=== PATIENT | male | born 1950 | race African-American/Black ===

== ENCOUNTER 2018-03-12 23:31 | Emergency (ER) | payer OTHER ==
--- OUTSIDE RECORDS SUMMARY | 2018-03-12 23:32 | XMS REPORT | Clinical Summary ---
:1950 Author Organization [facility] Address [address] [place] [address] Phone Care Team Providers Name Role Phone Unavailable Primary Care Provider Unavailable Allergies No Known Allergies Current Medications Prescription Sig. Disp. Refills Start Date End Date Status lisinopril (PRINIVIL,ZESTRIL) Take 20 mg by Active 20 MG tablet mouth 2 (two) times daily. hydroCHLOROthiazide Take 25 mg by Active (HYDRODIURIL) 25 MG tablet mouth daily. pravastatin (PRAVACHOL) 20 MG Take 20 mg by Active tablet mouth daily. Active Problems Problem Noted Date Renal mass, left 01/06/2017 Flank pain 01/06/2017 Social History Tobacco Use Types Packs/Day Years Used Date Never Smoker Alcohol Use Drinks/Week oz/Week Comments Yes 1 Cans of beer 0.6 OCCASSIONALLY Sex Assigned at Date Recorded Not on file Last Filed Vital Signs Not on file Plan of Treatment Not on file Results Not on fileafter 03/11/2017
--- OUTSIDE RECORDS SUMMARY | 2018-03-12 23:33 | XMS REPORT ---
:1950 Author Organization [facility] Address [address] [place] [address] Care Team Providers Name Role Phone JEROME DAO Unavailable Unavailable Problems This patient has no known problems. Allergies, Adverse Reactions, Alerts This patient has no known allergies or adverse reactions. Medications This patient has no known medications. Results Test Description Test Time Test Comments Text Results Atomic Results Result Comments TISSUE 2017-01-17 Surgical Pathology Report Case: [id number] EXAM 15:47:00 Irineo rodney Provider: Jerome Dao MD Ordering Provider: Jerome Dao MD Ordering Location: [address] Collected: 01/10/2017 1543 Service Pathologist: Saumya Sexton, Received: 01/10/2017 1616 Specimen: Kidney, Left, LEFT KIDNEY, SPLEEN, TAIL OF PANCREAS EN-BLOC LEFT KIDNEY, SPLEEN AND TAIL OF PANCREAS, LAPAROSCOPIC RADICAL NEPHRECTOMY WITH SPLENECTOMY AND DISTAL PANCREATECTOMY: - WEIGHT:1503 GM - PAPILLARY RENAL CELL CARCINOMA, 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.KIDNEY: Nephrectomy, Partial or RadicalKidney Res Specimen Site: Kidney structureSPECIMEN Procedure: Other (specify): splenectomy, distal pancreatectomy and adrenelectomy Specimen Laterality: Left Tumor Site: Upper pole Tumor Focality: Unifocal Macroscopic Extent of Tumor: Tumor limited to kidneyTUMOR Histologic Type: Papillary renal cell carcinoma Sarcomatoid Features: Not identified Histologic Grade (Sydni Nuclear Grade): G3: Nuclei very irregular, approximately 20 microns; nucleoli large and prominentEXTENT Tumor Size ( largest tumor if multiple): Greatest dimension (cm): 21 Additional Dimension (cm): 19 Additional Dimension (cm): 6 Microscopic Tumor Extension: Tumor limited to kidneyMARGINS Margin Status: Margins uninvolved by invasive carcinomaACCESSORY FINDINGS Tumor Necrosis (any amount): Not identified Lymph-Vascular Invasion: Not identifiedSTAGE (pTNM) Primary Tumor (pT): pT2b: Tumor more than 10 cm, limited to the kidney Regional Lymph Nodes (pN): pN0: No regional lymph node metastasis Number of Lymph Nodes Examined: Specify: 9 Number of Lymph Nodes Involved: Specify: 0 Distant Metastasis (pM): Not [id number]; [id number]; [id number] X 3Left renal massLeft kidney, spleen, tail of pancreasReceived fresh labeled "kidney, left", description "left kidney, spleen, tail of pancreas" is a 1,503 gm left radical nephrectomy specimen measuring 24.0 x 21.0 x 6.0 cm, with attached ureter (10.0 cm in length x 0.3 cm in diameter), attached adrenal gland (7.5 x 2.0 x 0.3 cm), adherent tail of pancreas (7.0 x 5.5 x 1.0 cm), with attached spleen (10.5 x 8.0 x 4.0 cm). Scant adipose tissue is attached to the specimen.The kidney is bivalved to reveal a 21.0 x 19.0 x 6.0 cm, smooth, well-circumscribed , unilocular, cystic mass containing dark-brown fluid. The lining is dark-brown, cobbled and exhibits adherent brown old blood. The mass is located in the upper pole and does not appear to invade into the attached tail of pancreas, spleen or adrenal gland.The mass does not appear to invade into the caliceal system, pelvis or renal sinus.The uninvolved renal parenchyma is dark-brown, homogeneous, dense and unremarkable.Sectioning of the attached pancreas reveals a yellow-choi, lobulated, unremarkable cut surface. Sectioning of the spleen reveals a dark-red, homogeneous, dense, unremarkable cut surface.Sectioning of the adrenal gland reveals a yellow-gold to brown, unremarkable cut surface.Multiple pink-choi peripancreatic lymph nodes are identified ranging in size from 0.3 cm to 1.0 cm in greatest dimension.A 1.5 cm in greatest dimension, dark-red, spherical, accessory spleen is identified.Section code: A1, parallel ureteral and vascular resection margins; A2, parallel pancreatic resection margin; A3-A4, automobile rental representative sections of mass with adherent spleen; A5-A8, automobile rental representative sections of mass with adherent pancreas; A9-A14, automobile rental representative sections of mass with renal parenchyma; A15-A24, additional automobile rental representative sections of mass; A25-A26, automobile rental representative sections of pancreas; A27-A28, automobile rental representative sections of adrenal gland; A29-A30, automobile rental representative sections of spleen; A31, accessory spleen; A32, automobile rental representative section of uninvolved kidney with pelvis and caliceal system; A33, automobile rental representative section of uninvolved kidney; A34, renal sinus; A35-A36, multiple intact peripancreatic lymph nodes. DB/ ewSections show a tumor mass encapsulated by a very thick capsule. The tumor originates in the upper pole of the kidney and its capsule is adherent to spleen and distal pancreas without invading into them. No definite invasion in perirenal fat is seen. Hilar fat and renal sinus are free of tumor.The following special studies were performed on this case and the interpretation is incorporated in the diagnostic report above: The immunohistochemistry test was developed and its performance characteristics determined by [facility], Pathology Laboratory. It has not been cleared or approved by the U.S. Food and Drug Administration. The FDA has determined that such clearance or approval is not necessary. The test is used for clinical purposes. It should not be regarded as investigational or for research. This laboratory is certified under the Clinical Laboratory Improvement Amendments of 1988 (CLIA-88) as qualified to perform high complexity clinical laboratory testing.CK7; PAX-8; CD10 AND AMACR ANAEROBIC CULTURE 2017-01-16 05:28:00 Test Item Value Reference Range Comments CULTURE (BEAKER) (test mqaj=5891) No anaerobes isolated HEMOGLOBIN AND [id number] 14:55:00 Test Item Value Reference Range Comments HEMOGLOBIN (BEAKER) (test cslf=790) 11.9 GM/DL 13.0-16.8 HEMATOCRIT (BEAKER) (test eymo=321) 35.7 % 40.0-50.0 CBC (HEMOGRAM ONLY)2017-01-14 10:41:00 Test Item Value Reference Range Comments WHITE BLOOD CELL COUNT (BEAKER) (test gjqo=333) 6.9 K/ L 4.0-10.0 RED BLOOD CELL COUNT (BEAKER) (test odys=738) 2.66 M/ L 4.20-5.80 HEMOGLOBIN (BEAKER) (test zvri=958) 8.7 GM/DL 13.0-16.8 HEMATOCRIT (BEAKER) (test uaaw=912) 28.4 % 40.0-50.0 MEAN CORPUSCULAR VOLUME (BEAKER) (test nwac=261) 107.0 fL 82.0-98.0 MEAN CORPUSCULAR HEMOGLOBIN (BEAKER) (test 32.6 pg 27.0-33.0 duvm=852) MEAN CORPUSCULAR HEMOGLOBIN CONC (BEAKER) (test 30.5 GM/DL 32.0-36.0 ejer=949) RED CELL DISTRIBUTION WIDTH (BEAKER) (test 13.4 % 10.3-14.2 dbjq=445) PLATELET COUNT (BEAKER) (test qpuk=653) 199 K/CU MM 150-430 MEAN PLATELET VOLUME (BEAKER) (test qmeb=139) 8.6 fL 6.5-10.5 NUCLEATED RED BLOOD CELLS (BEAKER) (test 0 /100 WBC 0-0 pqil=596) 0.00SURGICALLY OBTAINED CULTURE + GRAM [id number] 23:39:00 Test Item Value Reference Range Comments CULTURE (BEAKER) (test hkky=5997) No growth GRAM STAIN RESULT (BEAKER) (test 3+ WBCs vrdk=4774) GRAM STAIN RESULT (BEAKER) (test No organisms seen kauh=97876) AMYLASE, BODY [id number] 04:49:00 Test Item Value Reference Range Comments AMYLASE FLUID (BEAKER) (test vnxs=629) 158 U/L Absence of reference range indicates that normals have not been defined.Assay performance has not been validated for this type of specimen.AMYLASE, BODY [id number] 09:38:00 Test Item Value Reference Range Comments AMYLASE FLUID (BEAKER) (test bdtm=696) 1456 U/L Absence of reference range indicates that normals have not been defined.Assay performance has not been validated for this type of specimen.[id number] 06:54:00 Test Item Value Reference Range Comments POTASSIUM (BEAKER) (test 3.8 meq/L 3.5-5.1 Specimen slightly hemolyzed eqyp=101) BASIC METABOLIC [id number] 06:54:00 Test Item Value Reference Range Comments SODIUM (BEAKER) (test 138 meq/L 136-145 zltp=486) POTASSIUM (BEAKER) (test 3.8 meq/L 3.5-5.1 Specimen slightly bdpv=882) hemolyzed CHLORIDE (BEAKER) (test 104 meq/L 98-107 wxfh=083) CO2 (BEAKER) (test 26 meq/L 22-29 chpf=371) BLOOD UREA NITROGEN 10 mg/dL 7-21 (BEAKER) (test pxua=156) CREATININE (BEAKER) (test 1.28 mg/dL 0.57-1.25 Specimen slightly qzap=030) hemolyzed GLUCOSE RANDOM (BEAKER) 137 mg/dL 70-105 (test zyrw=203) CALCIUM (BEAKER) (test 8.5 mg/dL 8.4-10.2 jhud=814) EGFR (BEAKER) (test 69 mL/min/1.73 sq m ESTIMATED GFR IS NOT zsgb=9944) ACCURATE CREATININE CLEARANCE IN PREDICTING GLOMERULAR FILTRATION RATE. ESTIMATED GFR IS NOT APPLICABLE FOR DIALYSIS PATIENTS. HEMOGLOBIN AND [id number] 06:53:00 Test Item Value Reference Range Comments HEMOGLOBIN (BEAKER) (test uolp=819) 12.1 GM/DL 13.0-16.8 HEMATOCRIT (BEAKER) (test ldtw=662) 37.8 % 40.0-50.0 [id number] 14:34:00Medical Cytology Report Case: [id number] Authorizing Provider: Jerome Dao MD Ordering Provider: Jerome Dao MD OrderingLocation: [address] Collected: 1147 Service Pathologist: Catrachito Hernandez, Received: 01/10/2017 1543 Specimen: Kidney, Left LEFT RENAL MASS ASPIRATE ( CYTOSPINS AND CELL BLOCK): - NEGATIVE FOR MALIGNANT CELLS Signing Pathologist Direct Phone Line: [phone] cytospins and radha block show mostly old blood elements with no viable epithelial cells present.60500, [id number] cm left renal mass, flank painLEFT RENAL MASS ASPIRATE (CYTOSPINS AND CELL BLOCK)22 mls bloody; 4 cytospins, cell blockCollected: [id number]: [id number] [facility], Department of Pathology, [address] [place] [phone], RpuqwmLos [facility], Department of Pathology, [address] [place] [phone] , [id number] [id number] 12:12:00 Test Item Value Reference Range Comments CULTURE (BEAKER) (test 10-19,000 col/mL skin lux uatt=1111) AMYLASE, BODY [id number] 07:22:00 Test Item Value Reference Range Comments AMYLASE FLUID (BEAKER) (test zvic=535) 6125 U/L Absence of reference range indicates that normals have not been defined.Assay performance has not been validated for this type of specimen.CBC W/PLT COUNT & amp; AUTO [id number] 06:40:00 Test Item Value Reference Range Comments WHITE BLOOD CELL COUNT (BEAKER) (test ifjb=597) 11.9 K/ L 4.0-10.0 RED BLOOD CELL COUNT (BEAKER) (test edya=885) 4.15 M/ L 4.20-5.80 HEMOGLOBIN (BEAKER) (test cngf=022) 12.9 GM/DL 13.0-16.8 HEMATOCRIT (BEAKER) (test sqlz=553) 40.0 % 40.0-50.0 MEAN CORPUSCULAR VOLUME (BEAKER) (test gtny=900) 96.4 fL 82.0-98.0 MEAN CORPUSCULAR HEMOGLOBIN (BEAKER) (test 31.2 pg 27.0-33.0 irac=178) MEAN CORPUSCULAR HEMOGLOBIN CONC (BEAKER) (test 32.3 GM/DL 32.0-36.0 pomw=280) RED CELL DISTRIBUTION WIDTH (BEAKER) (test 13.9 % 10.3-14.2 xxlj=074) PLATELET COUNT (BEAKER) (test xsaz=166) 183 K/CU MM 150-430 MEAN PLATELET VOLUME (BEAKER) (test udkh=676) 9.1 fL 6.5-10.5 NUCLEATED RED BLOOD CELLS (BEAKER) (test 0 /100 WBC 0-0 xwvp=832) NEUTROPHILS RELATIVE PERCENT (BEAKER) (test 76 % dryv=015) LYMPHOCYTES RELATIVE PERCENT (BEAKER) (test 11 % wlgk=046) MONOCYTES RELATIVE PERCENT (BEAKER) (test 13 % heln=695) EOSINOPHILS RELATIVE PERCENT (BEAKER) (test 0 % qqqo=176) BASOPHILS RELATIVE PERCENT (BEAKER) (test 0 % ggig=998) NEUTROPHILS ABSOLUTE COUNT (BEAKER) (test 9.04 K/ L 1.80-8.00 cixj=471) LYMPHOCYTES ABSOLUTE COUNT (BEAKER) (test 1.28 K/ L 1.48-4.50 vuun=387) MONOCYTES ABSOLUTE COUNT (BEAKER) (test 1.53 K/ L 0.00-1.30 juea=152) EOSINOPHILS ABSOLUTE COUNT (BEAKER) (test 0.02 K/ L 0.00-0.50 npas=052) BASOPHILS ABSOLUTE COUNT (BEAKER) (test 0.01 K/ L 0.00-0.20 hhcy=435) 0.00BASIC METABOLIC [id number] 05:56:00 Test Item Value Reference Range Comments SODIUM (BEAKER) (test 136 meq/L 136-145 kwgw=124) POTASSIUM (BEAKER) (test 5.2 meq/L 3.5-5.1 Specimen slightly yezq=294) hemolyzed CHLORIDE (BEAKER) (test 105 meq/L 98-107 vrfi=255) CO2 (BEAKER) (test 23 meq/L 22-29 ukkq=135) BLOOD UREA NITROGEN 11 mg/dL 7-21 (BEAKER) (test dqvu=029) CREATININE (BEAKER) (test 1.46 mg/dL 0.57-1.25 Specimen slightly retr=226) hemolyzed GLUCOSE RANDOM (BEAKER) 302 mg/dL 70-105 (test htiw=747) CALCIUM (BEAKER) (test 8.1 mg/dL 8.4-10.2 fhzz=802) EGFR (BEAKER) (test 59 mL/min/1.73 sq m ESTIMATED GFR IS NOT kjun=9740) ACCURATE CREATININE CLEARANCE IN PREDICTING GLOMERULAR FILTRATION RATE. ESTIMATED GFR IS NOT APPLICABLE FOR DIALYSIS PATIENTS. BASIC METABOLIC [id number] 17:46:00 Test Item Value Reference Range Comments SODIUM (BEAKER) (test 139 meq/L 136-145 usga=688) POTASSIUM (BEAKER) (test 4.1 meq/L 3.5-5.1 wdah=949) CHLORIDE (BEAKER) (test 107 meq/L 98-107 rckg=690) CO2 (BEAKER) (test 20 meq/L 22-29 hjef=885) BLOOD UREA NITROGEN 10 mg/dL 7-21 (BEAKER) (test xsni=653) CREATININE (BEAKER) (test 1.44 mg/dL 0.57-1.25 fwoh=788) GLUCOSE RANDOM (BEAKER) 176 mg/dL 70-105 (test juro=661) CALCIUM (BEAKER) (test 8.2 mg/dL 8.4-10.2 tkmv=929) EGFR (BEAKER) (test 60 mL/min/1.73 sq m ESTIMATED GFR IS NOT gnpl=4651) ACCURATE CREATININE CLEARANCE IN PREDICTING GLOMERULAR FILTRATION RATE. ESTIMATED GFR IS NOT APPLICABLE FOR DIALYSIS PATIENTS. CBC W/PLT COUNT & AUTO [id number] 17:28:00 Test Item Value Reference Range Comments WHITE BLOOD CELL COUNT (BEAKER) (test zqyu=615) 13.5 K/ L 4.0-10.0 RED BLOOD CELL COUNT (BEAKER) (test vnpo=842) 4.20 M/ L 4.20-5.80 HEMOGLOBIN (BEAKER) (test gedt=082) 13.1 GM/DL 13.0-16.8 HEMATOCRIT (BEAKER) (test fzjm=723) 39.9 % 40.0-50.0 MEAN CORPUSCULAR VOLUME (BEAKER) (test kmmx=660) 94.9 fL 82.0-98.0 MEAN CORPUSCULAR HEMOGLOBIN (BEAKER) (test 31.1 pg 27.0-33.0 xzyb=810) MEAN CORPUSCULAR HEMOGLOBIN CONC (BEAKER) (test 32.8 GM/DL 32.0-36.0 wiro=303) RED CELL DISTRIBUTION WIDTH (BEAKER) (test 12.6 % 10.3-14.2 bokw=076) PLATELET COUNT (BEAKER) (test kgoc=121) 180 K/CU MM 150-430 MEAN PLATELET VOLUME (BEAKER) (test cqmr=088) 9.1 fL 6.5-10.5 NUCLEATED RED BLOOD CELLS (BEAKER) (test 0 /100 WBC 0-0 jpgv=937) NEUTROPHILS RELATIVE PERCENT (BEAKER) (test 89 % utow=686) LYMPHOCYTES RELATIVE PERCENT (BEAKER) (test 6 % ekrf=437) MONOCYTES RELATIVE PERCENT (BEAKER) (test 5 % tojq=570) EOSINOPHILS RELATIVE PERCENT (BEAKER) (test 0 % hdgo=319) BASOPHILS RELATIVE PERCENT (BEAKER) (test 0 % chnt=053) NEUTROPHILS ABSOLUTE COUNT (BEAKER) (test 12.00 K/ L 1.80-8.00 khho=489) LYMPHOCYTES ABSOLUTE COUNT (BEAKER) (test 0.80 K/ L 1.48-4.50 tjqr=929) MONOCYTES ABSOLUTE COUNT (BEAKER) (test 0.68 K/ L 0.00-1.30 ycbt=225) EOSINOPHILS ABSOLUTE COUNT (BEAKER) (test 0.01 K/ L 0.00-0.50 ypcr=303) BASOPHILS ABSOLUTE COUNT (BEAKER) (test 0.04 K/ L 0.00-0.20 hkxj=526) 0.00POCT-GLUCOSE [id number] 08:00:00 Test Item Value Reference Range Comments POC-GLUCOSE METER (BEAKER) 109 mg/dL 70-110 TESTED AT [address] (test ewtv=3722) [facility] [address] HEPATIC FUNCTION [id number] 04:56:00 Test Item Value Reference Range Comments TOTAL PROTEIN (BEAKER) (test cuhj=212) 7.3 gm/dL 6.0-8.3 ALBUMIN (BEAKER) (test quxf=2159) 4.0 g/dL 3.5-5.0 BILIRUBIN TOTAL (BEAKER) (test dnbx=903) 0.7 mg/dL 0.2-1.2 BILIRUBIN DIRECT (BEAKER) (test dhdp=680) 0.3 mg/dL 0.1-0.5 ALKALINE PHOSPHATASE (BEAKER) (test dceg=508) 46 U/L 40-150 AST (SGOT) (BEAKER) (test xmxk=282) 26 U/L 5-34 ALT (SGPT) (BEAKER) (test lboi=139) 16 U/L 6-55 BASIC METABOLIC [id number] 04:56:00 Test Item Value Reference Range Comments SODIUM (BEAKER) (test 141 meq/L 136-145 jswe=883) POTASSIUM (BEAKER) (test 4.5 meq/L 3.5-5.1 tsyw=710) CHLORIDE (BEAKER) (test 106 meq/L 98-107 lrzx=925) CO2 (BEAKER) (test 26 meq/L 22-29 qzcx=338) BLOOD UREA NITROGEN 14 mg/dL 7-21 (BEAKER) (test kzjl=440) CREATININE (BEAKER) (test 1.23 mg/dL 0.57-1.25 glfz=504) GLUCOSE RANDOM (BEAKER) 92 mg/dL 70-105 (test kces=619) CALCIUM (BEAKER) (test 9.3 mg/dL 8.4-10.2 vjce=355) EGFR (BEAKER) (test 72 mL/min/1.73 sq m ESTIMATED GFR IS NOT nign=0388) ACCURATE CREATININE CLEARANCE IN PREDICTING GLOMERULAR FILTRATION RATE. ESTIMATED GFR IS NOT APPLICABLE FOR DIALYSIS PATIENTS. CBC W/PLT COUNT & AUTO [id number] 04:46:00 Test Item Value Reference Range Comments WHITE BLOOD CELL COUNT (BEAKER) (test rebc=429) 6.5 K/ L 4.0-10.0 RED BLOOD CELL COUNT (BEAKER) (test zayr=633) 4.45 M/ L 4.20-5.80 HEMOGLOBIN (BEAKER) (test nibg=043) 14.0 GM/DL 13.0-16.8 HEMATOCRIT (BEAKER) (test usxo=805) 42.8 % 40.0-50.0 MEAN CORPUSCULAR VOLUME (BEAKER) (test vxwn=110) 96.2 fL 82.0-98.0 MEAN CORPUSCULAR HEMOGLOBIN (BEAKER) (test 31.6 pg 27.0-33.0 cqbt=684) MEAN CORPUSCULAR HEMOGLOBIN CONC (BEAKER) (test 32.8 GM/DL 32.0-36.0 gejy=163) RED CELL DISTRIBUTION WIDTH (BEAKER) (test 13.8 % 10.3-14.2 flvc=940) PLATELET COUNT (BEAKER) (test dmmq=161) 160 K/CU MM 150-430 MEAN PLATELET VOLUME (BEAKER) (test uwmp=702) 9.3 fL 6.5-10.5 NUCLEATED RED BLOOD CELLS (BEAKER) (test 0 /100 WBC 0-0 jggc=546) NEUTROPHILS RELATIVE PERCENT (BEAKER) (test 54 % qizd=949) LYMPHOCYTES RELATIVE PERCENT (BEAKER) (test 32 % mwon=215) MONOCYTES RELATIVE PERCENT (BEAKER) (test 12 % bzry=302) EOSINOPHILS RELATIVE PERCENT (BEAKER) (test 2 % rxsp=473) BASOPHILS RELATIVE PERCENT (BEAKER) (test 1 % dgfa=538) NEUTROPHILS ABSOLUTE COUNT (BEAKER) (test 3.51 K/ L 1.80-8.00 fscm=765) LYMPHOCYTES ABSOLUTE COUNT (BEAKER) (test 2.05 K/ L 1.48-4.50 mwto=676) MONOCYTES ABSOLUTE COUNT (BEAKER) (test 0.78 K/ L 0.00-1.30 ztus=067) EOSINOPHILS ABSOLUTE COUNT (BEAKER) (test 0.10 K/ L 0.00-0.50 ksfx=605) BASOPHILS ABSOLUTE COUNT (BEAKER) (test 0.06 K/ L 0.00-0.20 bsut=332) 0.00PT/[id number] 04:45:00 Test Item Value Reference Range Comments PROTIME (BEAKER) (test zsdd=188) 14.5 seconds 11.7-14.7 INR (BEAKER) (test aisx=353) 1.1 <=5.9 PARTIAL THROMBOPLASTIN TIME (BEAKER) (test 27.7 seconds 22.5-36.0 avee=537) RECOMMENDED COUMADIN/WARFARIN INR THERAPY RANGESSTANDARD DOSE: 2.0 - 3.0 Includes: PROPHYLAXIS forvenous thrombosis, systemic embolization; TREATMENT for venous thrombosis and/or pulmonary embolus.HIGH RISK: Target INR is 2.5-3.5 for patients with mechanical heart valves.URINALYSIS W/ [id number] 04 :29:00 Test Item Value Reference Range Comments COLOR (BEAKER) (test wsru=772) Light Yellow CLARITY (BEAKER) (test jtif=293) Clear SPECIFIC GRAVITY UA (BEAKER) (test xivx=181) 1.007 1.001-1.035 PH UA (BEAKER) (test gsus=945) 6.0 5.0-8.0 PROTEIN UA (BEAKER) (test olsy=463) Negative Negative GLUCOSE UA (BEAKER) (test bwok=878) Negative Negative KETONES UA (BEAKER) (test wkit=655) Negative Negative BILIRUBIN UA (BEAKER) (test cyuu=840) Negative Negative BLOOD UA (BEAKER) (test aclm=696) Negative Negative NITRITE UA (BEAKER) (test drkl=367) Negative Negative LEUKOCYTE ESTERASE UA (BEAKER) (test ikot=280) Negative Negative UROBILINOGEN UA (BEAKER) (test lfed=659) 0.2 mg/dL 0.2-1.0 RBC UA (BEAKER) (test moui=454) < /HPF WBC UA (BEAKER) (test jdep=639) 1 /HPF SOURCE(BEAKER) (test qcrt=3732) Urine, Voided
[2018-03-13] MEDS ORDERED: DIPHENHYDRAMINE 25 MG TAB/CAP ONE ×2 (00:52→00:54)
[2018-03-13] MEDS ORDERED: IBUPROFEN 400 MG TAB ONE (00:52)
[2018-03-13] MEDS ORDERED: IBUPROFEN 200 MG TAB PO ONE (00:53)
--- NOTE | 2018-03-13 00:58 | ER ---
Nurse's Notes [facility] Name: Blair Baca Age: 67 yrs Sex: Male : 1950 Arrival Date: 03/12/2018 Time: 23:32 Bed 7 Private MD: Bernard Chaney E Diagnosis: Headache;Hypertension Presentation: 03/12 23:42 Presenting complaint: Patient states: headache with elevated blood pressure since noon. ak1 at 1900 home BP 165/105. pt uses the clinic in [place] for medications. Transition of care: patient was not received from another setting of care. Onset of symptoms was March 12, 2018. Risk Assessment: Do you want to hurt yourself or someone else? Patient reports no desire to harm self or others. Initial Sepsis Screen: Does the patient meet any 2 criteria? No. Patient's initial sepsis screen is negative. Does the patient have a suspected source of infection? No. Patient's initial sepsis screen is negative. Care prior to arrival: None. 23:42 Method Of Arrival: Ambulatory ak1 23:42 Acuity: AMILCAR 3 ak1 Triage Assessment: 23:44 General: Appears in no apparent distress. Behavior is calm, cooperative. Pain: ak1 Complains of pain in headache. Historical: - Allergies: 23:44 No Known Allergies; ak1 - Home Meds: 23:44 lisinopril 20 mg Oral tab 1 tab twice daily [Active]; hydrochlorothiazide 25 mg Oral ak1 tab 1 tab once daily [Active]; - PMHx: 23:44 Hypertension; Hyperlipidemia; ak1 - PSHx: 23:44 kidney surgery - left kidney removed; ak1 - Immunization history:: Adult Immunizations unknown. - Social history:: Smoking status: Patient/guardian denies using tobacco. - Ebola Screening: : No symptoms or risks identified at this time. Screenin:44 Abuse screen: Denies threats or abuse. Denies injuries from another. Nutritional ak1 screening: No deficits noted. Tuberculosis screening: No symptoms or risk factors identified. Fall Risk None identified. Assessment: 03/13 00:33 General: Appears in no apparent distress. comfortable, Behavior is calm, cooperative. mg2 Pain: Complains of pain in head Pain does not radiate. Pain currently is 6 out of 10 on a pain scale. Quality of pain is described as aching, Pain began \T\ 1800 Is intermittent. Neuro: Level of Consciousness is awake, alert, obeys commands, Oriented to person, place, time, situation. Cardiovascular: Capillary refill < 3 seconds Patient's skin is warm and dry. Respiratory: Airway is patent Respiratory effort is even, unlabored, Respiratory pattern is regular, symmetrical. GI: No signs and/or symptoms were reported involving the gastrointestinal system. : No signs and/or symptoms were reported regarding the genitourinary system. EENT: No signs and/or symptoms were reported regarding the EENT system. Derm: Skin is intact, Skin is pink, warm \T\ dry. normal. Musculoskeletal: Circulation, motion, and sensation intact. 01:00 Reassessment: Patient and/or family updated on plan of care and expected duration. Pain lp1 level reassessed. Patient is alert, oriented x 3, equal unlabored respirations, skin warm/dry/pink. Vital Signs: 03/12 23:41 BP 164 / 104; Pulse 63; Resp 18; Temp 98.1(TE); Pulse Ox 100% on R/A; Weight 108.86 kg ak1 (R); Height 6 ft. 5 in. (195.58 cm) (R); Pain 8/10; 03/13 00:34 BP 152 / 98; Pulse 65; Resp 18; Pulse Ox 100% on R/A; Pain 6/10; mg2 01:15 BP 145 / 90; Pulse 80; Resp 18; Pulse Ox 100% on R/A; Pain 0/10; mg2 03/12 23:41 Body Mass Index 28.46 (108.86 kg, 195.58 cm) ak1 ED Course: 03/12 23:32 Patient arrived in ED. am2 23:32 Bernard Chaney MD is Private Physician. am2 23:41 Arm band placed on Patient placed in an exam room, on a stretcher, on pulse oximetry, ak1 Patient notified of wait time. 23:42 Triage completed. ak1 23:44 Patient has correct armband on for positive identification. Bed in low position. Call ak1 light in reach. Side rails up X 1. Pulse ox on. NIBP on. 03/13 00:01 Xavier Cruz MD is Attending Physician. ps1 00:32 Cb Quiroga RN is Primary Nurse. mg2 00:56 Bernard Chaney MD is Referral Physician. ps1 01:27 No provider procedures requiring assistance completed. Patient did not have IV access mg2 during this emergency room visit. Administered Medications: 00:59 Drug: Reglan 10 mg Route: PO; lp1 00:59 Drug: Motrin 600 mg Route: PO; lp1 Outcome: 00:58 Discharge ordered by MD. ps1 01:27 Discharged to home ambulatory. mg2 01:27 Condition: stable 01:27 Discharge instructions given to patient, Instructed on discharge instructions, follow up and referral plans. Demonstrated understanding of instructions, follow-up care. 01:28 Patient left the ED. mg2 Signatures: Carine Davila RN RN lp1 Philly Zepeda RN RN ak1 Carol Escalante am2 Xavier Cruz MD MD ps1 Cb Quiroga RN RN mg2 Corrections: (The following items were deleted from the chart) 01:01 01:00 BP 152 / 98; Pulse 86bpm; Resp 18bpm; lp1 lp1
--- NOTE | 2018-03-13 00:58 | EDPHYS ---
Physician Documentation [facility] Name: Blair Baca Age: 67 yrs Sex: Male : 1950 Arrival Date: 03/12/2018 Time: 23:32 Bed 7 Private MD: Bernard Chaney E ED Physician Xavier Cruz HPI: 03/13 00:50 This 67 yrs old Black Male presents to ER via Ambulatory with complaints of High Blood ps1 Pressure. 00:50 patient has long standing htn takes hctz and lisinopril. States that he takes his ps1 medication ad jimena and depending on the BP at home. He states that he gets headaches associated with high blood pressure and he states that he had a headache today and his blood pressure was 160's systolic. He took his lisinopril and his BP during evaluation was 150's systolic and still has a frontal headache. His headache is c/w his previous episodes and was not abrupt but gradual and described as throbbing. No ataxia, FND, or vomting. . Historical: - Allergies: 03/12 23:44 No Known Allergies; ak1 - Home Meds: 23:44 lisinopril 20 mg Oral tab 1 tab twice daily [Active]; hydrochlorothiazide 25 mg Oral ak1 tab 1 tab once daily [Active]; - PMHx: 23:44 Hypertension; Hyperlipidemia; ak1 - PSHx: 23:44 kidney surgery - left kidney removed; ak1 - Immunization history:: Adult Immunizations unknown. - Social history:: Smoking status: Patient/guardian denies using tobacco. - Ebola Screening: : No symptoms or risks identified at this time. ROS: 03/13 00:50 Constitutional: Negative for fever, chills, and weight loss, Eyes: Negative for injury, ps1 pain, redness, and discharge, Cardiovascular: Negative for chest pain, palpitations, and edema, Respiratory: Negative for shortness of breath, cough, wheezing, and pleuritic chest pain, Abdomen/GI: Negative for abdominal pain, nausea, vomiting, diarrhea, and constipation, Back: Negative for injury and pain, MS/Extremity: Negative for injury and deformity, Skin: Negative for injury, rash, and discoloration. Neuro: Positive for headache. Exam: 00:50 Constitutional: This is a well developed, well nourished patient who is awake, alert, ps1 and in no acute distress. Head/Face: Normocephalic, atraumatic. Eyes: Pupils equal round and reactive to light, extra-ocular motions intact. Lids and lashes normal. Conjunctiva and sclera are non-icteric and not injected. Chest/axilla: Normal chest wall appearance and motion. Nontender with no deformity. No lesions are appreciated. Cardiovascular: Regular rate and rhythm. No gallops, murmurs, or rubs. Normal PMI, no JVD. No pulse deficits. Respiratory: Lungs have equal breath sounds bilaterally, clear to auscultation and percussion. No rales, rhonchi or wheezes noted. No increased work of breathing, no retractions or nasal flaring. Abdomen/GI: Soft, non-tender, with normal bowel sounds. No distension or tympany. No guarding or rebound. No evidence of tenderness throughout. Skin: Warm, dry with normal turgor. Normal color with no rashes, no lesions, and no evidence of cellulitis. MS/ Extremity: Pulses equal, no cyanosis. Neurovascular intact. Full, normal range of motion. Neuro: Awake and alert, GCS 15, oriented to person, place, time, and situation. Cranial nerves II-XII grossly intact. Sensory grossly intact. Psych: Awake, alert, with orientation to person, place and time. Behavior, mood, and affect are within normal limits. Vital Signs: 03/12 23:41 BP 164 / 104; Pulse 63; Resp 18; Temp 98.1(TE); Pulse Ox 100% on R/A; Weight 108.86 kg ak1 (R); Height 6 ft. 5 in. (195.58 cm) (R); Pain 8/10; 03/13 00:34 BP 152 / 98; Pulse 65; Resp 18; Pulse Ox 100% on R/A; Pain 6/10; mg2 01:15 BP 145 / 90; Pulse 80; Resp 18; Pulse Ox 100% on R/A; Pain 0/10; mg2 03/12 23:41 Body Mass Index 28.46 (108.86 kg, 195.58 cm) ak1 MDM: 00:50 Data reviewed: vital signs, nurses notes. ED course: headache not c/w typical signs of ps1 SAH. Will give Reglan and Benadryl. Encouraged patient to take HTN meds as prescribed. Follow up with PCP for medication modification as necessary. . 00:58 Patient medically screened. ps1 Administered Medications: 00:59 Drug: Reglan 10 mg Route: PO; lp1 00:59 Drug: Motrin 600 mg Route: PO; lp1 Disposition: 03/13/18 00:58 Discharged to Home. Impression: Headache, Hypertension. - Condition is Stable. - Discharge Instructions: Migraine Headache, Hypertension. - Medication Reconciliation Form, Thank You Letter, Antibiotic Education, Prescription Opioid Use form. - Follow up: Bernard Chaney MD; When: As needed; Reason: Recheck today's complaints, Continuance of care, Re-evaluation by your physician. Follow up: Emergency Department; When: As needed; Reason: Worsening of condition. - Problem is an acute exacerbation. - Symptoms have improved. Signatures: Carine Davila RN RN lp1 Philly Zepeda RN RN ak1 Xavier Cruz MD MD ps1 Cb Quiroga RN RN mg2 Corrections: (The following items were deleted from the chart) 01:28 00:58 03/13/2018 00:58 Discharged to Home. Impression: Headache; Hypertension. mg2 Condition is Stable. Forms are Medication Reconciliation Form, Thank You Letter, Antibiotic Education, Prescription Opioid Use. Follow up: Bernard Chaney; When: As needed; Reason: Recheck today's complaints, Continuance of care, Re-evaluation by your physician. Follow up: Emergency Department; When: As needed; Reason: Worsening of condition. Problem is an acute exacerbation. Symptoms have improved. ps1
[2018-03-13] MEDS ORDERED: METOCLOPRAMIDE 5 MG TAB ONE (01:00)
== END 2018-03-13 01:28 | disposition home or self-care (01) ==
LOC: ER 23:31
DX: R51 Headache (principal); I10 Essential (primary) hypertension; E78.5 Hyperlipidemia, unspecified
CPT/HCPCS: 99283

== ENCOUNTER 2018-06-12 23:08 | Emergency (ER) | payer OTHER ==
--- OUTSIDE RECORDS SUMMARY | 2018-06-12 23:10 | XMS REPORT | Clinical Summary ---
:1950 Author Organization [facility] Address [address] [place] [address] Phone Care Team Providers Name Role Phone [...] Not on file Results Not on fileafter 06/11/2017
--- OUTSIDE RECORDS SUMMARY | 2018-06-12 23:11 | XMS REPORT ---
:1950 Author Organization [facility] Address [address] [place] [address] Care Team Providers Name Role Phone JEROME DAO Unavailable Unavailable Problems This patient has no known problems. Allergies, Adverse Reactions, Alerts This patient has no known allergies or adverse reactions. Medications This patient has no known medications. Results Test Description Test Time Test Comments Text Results Atomic Results Result Comments TISSUE 2017-01-17 Surgical Pathology Report Case: [id number] EXAM 15:47:00 Irineo rodney Provider: Jerome Dao MD Ordering Provider: Jerome Dao MD Ordering Location: [address] Collected: 01/10/2017 1543 Service Pathologist: Saumya [...] SYNOPTIC REPORT Signing Pathologist Direct Phone Line: [phone] tumor cells stain positive for PAX-8, AMACR, [...] Involved: Specify: 0 Distant Metastasis (pM): Not [id number]; [id number]; 32949 X 3Left renal massLeft kidney, spleen, tail [...] margins; A2, parallel pancreatic resection margin; A3-A4, order entry representative sections of mass with adherent spleen; A5-A8, order entry representative sections of mass with adherent pancreas; A9-A14, order entry representative sections of mass with renal parenchyma; A15-A24, additional order entry representative sections of mass; A25-A26, order entry representative sections of pancreas; A27-A28, order entry representative sections of adrenal gland; A29-A30, order entry representative sections of spleen; A31, accessory spleen; A32, order entry representative section of uninvolved kidney with pelvis and caliceal system; A33, order entry representative section of uninvolved kidney; A34, renal [...] developed and its performance characteristics determined by [facility], Pathology Laboratory. It has not been cleared [...] Value Reference Range Comments CULTURE (BEAKER) (test hxmr=7331) No anaerobes isolated HEMOGLOBIN AND [id number] 14:55:00 Test Item Value Reference Range Comments HEMOGLOBIN (BEAKER) (test ngtq=905) 11.9 GM/DL 13.0-16.8 HEMATOCRIT (BEAKER) (test pryf=961) 35.7 % 40.0-50.0 CBC (HEMOGRAM ONLY)2017-01-14 10:41:00 Test Item Value Reference Range Comments WHITE BLOOD CELL COUNT (BEAKER) (test vdoo=857) 6.9 K/ L 4.0-10.0 RED BLOOD CELL COUNT (BEAKER) (test krgb=179) 2.66 M/ L 4.20-5.80 HEMOGLOBIN (BEAKER) (test gdom=898) 8.7 GM/DL 13.0-16.8 HEMATOCRIT (BEAKER) (test ffzd=905) 28.4 % 40.0-50.0 MEAN CORPUSCULAR VOLUME (BEAKER) (test mstz=444) 107.0 fL 82.0-98.0 MEAN CORPUSCULAR HEMOGLOBIN (BEAKER) (test 32.6 pg 27.0-33.0 kvlt=680) MEAN CORPUSCULAR HEMOGLOBIN CONC (BEAKER) (test 30.5 GM/DL 32.0-36.0 pyrt=138) RED CELL DISTRIBUTION WIDTH (BEAKER) (test 13.4 % 10.3-14.2 atbt=689) PLATELET COUNT (BEAKER) (test lphi=429) 199 K/CU MM 150-430 MEAN PLATELET VOLUME (BEAKER) (test dejd=845) 8.6 fL 6.5-10.5 NUCLEATED RED BLOOD CELLS (BEAKER) (test 0 /100 WBC 0-0 dmqb=572) 0.00SURGICALLY OBTAINED CULTURE + GRAM [id number] 23:39:00 Test Item Value Reference Range Comments CULTURE (BEAKER) (test tjzc=1014) No growth GRAM STAIN RESULT (BEAKER) (test 3+ WBCs zbjd=2501) GRAM STAIN RESULT (BEAKER) (test No organisms seen ordn=04819) AMYLASE, BODY [id number] 04:49:00 Test Item Value Reference Range Comments AMYLASE FLUID (BEAKER) (test hvkd=619) 158 U/L Absence of reference range indicates that normals have not been defined.Assay performance has not been validated for this type of specimen.AMYLASE, BODY [id number] 09:38:00 Test Item Value Reference Range Comments AMYLASE FLUID (BEAKER) (test ybvw=709) 1456 U/L Absence of reference range indicates that normals have not been defined.Assay performance has not been validated for this type of specimen.[id number] 06:54:00 Test Item Value Reference Range Comments POTASSIUM (BEAKER) (test 3.8 meq/L 3.5-5.1 Specimen slightly hemolyzed cmxw=905) BASIC METABOLIC [id number] 06:54:00 Test Item Value Reference Range Comments SODIUM (BEAKER) (test 138 meq/L 136-145 uqaj=161) POTASSIUM (BEAKER) (test 3.8 meq/L 3.5-5.1 Specimen slightly edco=042) hemolyzed CHLORIDE (BEAKER) (test 104 meq/L 98-107 xxmc=055) CO2 (BEAKER) (test 26 meq/L 22-29 lzqt=947) BLOOD UREA NITROGEN 10 mg/dL 7-21 (BEAKER) (test qxuo=226) CREATININE (BEAKER) (test 1.28 mg/dL 0.57-1.25 Specimen slightly zmrx=575) hemolyzed GLUCOSE RANDOM (BEAKER) 137 mg/dL 70-105 (test bnpv=850) CALCIUM (BEAKER) (test 8.5 mg/dL 8.4-10.2 kwru=506) EGFR (BEAKER) (test 69 mL/min/1.73 sq m ESTIMATED GFR IS NOT izvw=4289) ACCURATE CREATININE CLEARANCE IN PREDICTING GLOMERULAR FILTRATION RATE. ESTIMATED GFR IS NOT APPLICABLE FOR DIALYSIS PATIENTS. HEMOGLOBIN AND [id number] 06:53:00 Test Item Value Reference Range Comments HEMOGLOBIN (BEAKER) (test fdgq=468) 12.1 GM/DL 13.0-16.8 HEMATOCRIT (BEAKER) (test dcdy=322) 37.8 % 40.0-50.0 [id number] 14:34:00Medical Cytology Report Case: [id number] Authorizing Provider: Jerome Dao MD Ordering Provider: Jerome Dao MD OrderingLocation: [address] Collected: 1147 Service Pathologist: Catrachito Hernandez, Received: 01/10/2017 1543 Specimen: Kidney, Left LEFT RENAL MASS ASPIRATE ( CYTOSPINS AND CELL BLOCK): - NEGATIVE FOR MALIGNANT CELLS Signing Pathologist Direct Phone Line: [phone] cytospins and radha block show mostly old blood elements with no viable epithelial cells present.08720, [id number] cm left renal mass, flank painLEFT RENAL MASS ASPIRATE (CYTOSPINS AND CELL BLOCK)22 mls bloody; 4 cytospins, cell blockCollected: [id number]: [id number] [facility], [facility] of [facility]ology, [address] [place] [address], [facility], [facility] of [facility]ology, [address] [place] [address] , [id number] [id number] 12:12:00 Test Item Value Reference Range Comments CULTURE (BEAKER) (test 10-19,000 col/mL skin lux yzae=5193) AMYLASE, BODY [id number] 07:22:00 Test Item Value Reference Range Comments AMYLASE FLUID (BEAKER) (test umlc=469) 6125 U/L Absence of reference range indicates that normals have not been defined.Assay performance has not been validated for this type of specimen.CBC W/PLT COUNT & amp; AUTO [id number] 06:40:00 Test Item Value Reference Range Comments WHITE BLOOD CELL COUNT (BEAKER) (test obzr=980) 11.9 K/ L 4.0-10.0 RED BLOOD CELL COUNT (BEAKER) (test ggtu=732) 4.15 M/ L 4.20-5.80 HEMOGLOBIN (BEAKER) (test wwwu=972) 12.9 GM/DL 13.0-16.8 HEMATOCRIT (BEAKER) (test nwml=604) 40.0 % 40.0-50.0 MEAN CORPUSCULAR VOLUME (BEAKER) (test ezzm=670) 96.4 fL 82.0-98.0 MEAN CORPUSCULAR HEMOGLOBIN (BEAKER) (test 31.2 pg 27.0-33.0 wxdh=670) MEAN CORPUSCULAR HEMOGLOBIN CONC (BEAKER) (test 32.3 GM/DL 32.0-36.0 qgjo=372) RED CELL DISTRIBUTION WIDTH (BEAKER) (test 13.9 % 10.3-14.2 ofqv=328) PLATELET COUNT (BEAKER) (test csqu=874) 183 K/CU MM 150-430 MEAN PLATELET VOLUME (BEAKER) (test gsqe=918) 9.1 fL 6.5-10.5 NUCLEATED RED BLOOD CELLS (BEAKER) (test 0 /100 WBC 0-0 wfwl=650) NEUTROPHILS RELATIVE PERCENT (BEAKER) (test 76 % yyuq=939) LYMPHOCYTES RELATIVE PERCENT (BEAKER) (test 11 % qnqy=659) MONOCYTES RELATIVE PERCENT (BEAKER) (test 13 % ihcl=447) EOSINOPHILS RELATIVE PERCENT (BEAKER) (test 0 % kmvq=185) BASOPHILS RELATIVE PERCENT (BEAKER) (test 0 % wcce=836) NEUTROPHILS ABSOLUTE COUNT (BEAKER) (test 9.04 K/ L 1.80-8.00 rwmp=120) LYMPHOCYTES ABSOLUTE COUNT (BEAKER) (test 1.28 K/ L 1.48-4.50 fzaa=441) MONOCYTES ABSOLUTE COUNT (BEAKER) (test 1.53 K/ L 0.00-1.30 ycyq=380) EOSINOPHILS ABSOLUTE COUNT (BEAKER) (test 0.02 K/ L 0.00-0.50 qncm=071) BASOPHILS ABSOLUTE COUNT (BEAKER) (test 0.01 K/ L 0.00-0.20 ppyv=809) 0.00BASIC METABOLIC [id number] 05:56:00 Test Item Value Reference Range Comments SODIUM (BEAKER) (test 136 meq/L 136-145 dibp=027) POTASSIUM (BEAKER) (test 5.2 meq/L 3.5-5.1 Specimen slightly zjzr=163) hemolyzed CHLORIDE (BEAKER) (test 105 meq/L 98-107 axxc=052) CO2 (BEAKER) (test 23 meq/L 22-29 qbag=901) BLOOD UREA NITROGEN 11 mg/dL 7-21 (BEAKER) (test ilhj=758) CREATININE (BEAKER) (test 1.46 mg/dL 0.57-1.25 Specimen slightly pcnr=881) hemolyzed GLUCOSE RANDOM (BEAKER) 302 mg/dL 70-105 (test vxky=676) CALCIUM (BEAKER) (test 8.1 mg/dL 8.4-10.2 gapf=463) EGFR (BEAKER) (test 59 mL/min/1.73 sq m ESTIMATED GFR IS NOT fdiy=3277) ACCURATE CREATININE CLEARANCE IN PREDICTING GLOMERULAR FILTRATION RATE. ESTIMATED GFR IS NOT APPLICABLE FOR DIALYSIS PATIENTS. BASIC METABOLIC [id number] 17:46:00 Test Item Value Reference Range Comments SODIUM (BEAKER) (test 139 meq/L 136-145 nikt=826) POTASSIUM (BEAKER) (test 4.1 meq/L 3.5-5.1 wfas=918) CHLORIDE (BEAKER) (test 107 meq/L 98-107 tnuz=799) CO2 (BEAKER) (test 20 meq/L 22-29 hcir=829) BLOOD UREA NITROGEN 10 mg/dL 7-21 (BEAKER) (test jrsj=037) CREATININE (BEAKER) (test 1.44 mg/dL 0.57-1.25 itdx=233) GLUCOSE RANDOM (BEAKER) 176 mg/dL 70-105 (test hxgc=866) CALCIUM (BEAKER) (test 8.2 mg/dL 8.4-10.2 jcco=836) EGFR (BEAKER) (test 60 mL/min/1.73 sq m ESTIMATED GFR IS NOT uzdc=6312) ACCURATE CREATININE CLEARANCE IN PREDICTING GLOMERULAR FILTRATION RATE. ESTIMATED GFR IS NOT APPLICABLE FOR DIALYSIS PATIENTS. CBC W/PLT COUNT & AUTO [id number] 17:28:00 Test Item Value Reference Range Comments WHITE BLOOD CELL COUNT (BEAKER) (test kmjh=960) 13.5 K/ L 4.0-10.0 RED BLOOD CELL COUNT (BEAKER) (test syab=835) 4.20 M/ L 4.20-5.80 HEMOGLOBIN (BEAKER) (test pxjk=290) 13.1 GM/DL 13.0-16.8 HEMATOCRIT (BEAKER) (test nzcv=260) 39.9 % 40.0-50.0 MEAN CORPUSCULAR VOLUME (BEAKER) (test lzoc=638) 94.9 fL 82.0-98.0 MEAN CORPUSCULAR HEMOGLOBIN (BEAKER) (test 31.1 pg 27.0-33.0 lrju=650) MEAN CORPUSCULAR HEMOGLOBIN CONC (BEAKER) (test 32.8 GM/DL 32.0-36.0 avtd=946) RED CELL DISTRIBUTION WIDTH (BEAKER) (test 12.6 % 10.3-14.2 qtvb=473) PLATELET COUNT (BEAKER) (test ivsw=478) 180 K/CU MM 150-430 MEAN PLATELET VOLUME (BEAKER) (test nkgq=552) 9.1 fL 6.5-10.5 NUCLEATED RED BLOOD CELLS (BEAKER) (test 0 /100 WBC 0-0 qaxm=277) NEUTROPHILS RELATIVE PERCENT (BEAKER) (test 89 % iyjs=418) LYMPHOCYTES RELATIVE PERCENT (BEAKER) (test 6 % otfn=919) MONOCYTES RELATIVE PERCENT (BEAKER) (test 5 % fqrd=123) EOSINOPHILS RELATIVE PERCENT (BEAKER) (test 0 % egsj=263) BASOPHILS RELATIVE PERCENT (BEAKER) (test 0 % imip=066) NEUTROPHILS ABSOLUTE COUNT (BEAKER) (test 12.00 K/ L 1.80-8.00 qiao=269) LYMPHOCYTES ABSOLUTE COUNT (BEAKER) (test 0.80 K/ L 1.48-4.50 jwrh=622) MONOCYTES ABSOLUTE COUNT (BEAKER) (test 0.68 K/ L 0.00-1.30 ikkd=640) EOSINOPHILS ABSOLUTE COUNT (BEAKER) (test 0.01 K/ L 0.00-0.50 zxnn=018) BASOPHILS ABSOLUTE COUNT (BEAKER) (test 0.04 K/ L 0.00-0.20 lnts=223) 0.00POCT-GLUCOSE [id number] 08:00:00 Test Item Value Reference Range Comments POC-GLUCOSE METER (BEAKER) 109 mg/dL 70-110 TESTED AT [address] (test rgbd=2703) [facility] [address] HEPATIC FUNCTION [id number] 04:56:00 Test Item Value Reference Range Comments TOTAL PROTEIN (BEAKER) (test hvem=187) 7.3 gm/dL 6.0-8.3 ALBUMIN (BEAKER) (test mjhh=9208) 4.0 g/dL 3.5-5.0 BILIRUBIN TOTAL (BEAKER) (test twhw=535) 0.7 mg/dL 0.2-1.2 BILIRUBIN DIRECT (BEAKER) (test mocg=041) 0.3 mg/dL 0.1-0.5 ALKALINE PHOSPHATASE (BEAKER) (test jupr=095) 46 U/L 40-150 AST (SGOT) (BEAKER) (test bpae=965) 26 U/L 5-34 ALT (SGPT) (BEAKER) (test abmq=099) 16 U/L 6-55 BASIC METABOLIC [id number] 04:56:00 Test Item Value Reference Range Comments SODIUM (BEAKER) (test 141 meq/L 136-145 fqtq=704) POTASSIUM (BEAKER) (test 4.5 meq/L 3.5-5.1 mqke=135) CHLORIDE (BEAKER) (test 106 meq/L 98-107 ozwb=201) CO2 (BEAKER) (test 26 meq/L 22-29 txwc=760) BLOOD UREA NITROGEN 14 mg/dL 7-21 (BEAKER) (test fsgm=669) CREATININE (BEAKER) (test 1.23 mg/dL 0.57-1.25 daap=747) GLUCOSE RANDOM (BEAKER) 92 mg/dL 70-105 (test fyut=460) CALCIUM (BEAKER) (test 9.3 mg/dL 8.4-10.2 ebpz=628) EGFR (BEAKER) (test 72 mL/min/1.73 sq m ESTIMATED GFR IS NOT uapt=1494) ACCURATE CREATININE CLEARANCE IN PREDICTING GLOMERULAR FILTRATION RATE. ESTIMATED GFR IS NOT APPLICABLE FOR DIALYSIS PATIENTS. CBC W/PLT COUNT & AUTO [id number] 04:46:00 Test Item Value Reference Range Comments WHITE BLOOD CELL COUNT (BEAKER) (test lezn=750) 6.5 K/ L 4.0-10.0 RED BLOOD CELL COUNT (BEAKER) (test vytc=770) 4.45 M/ L 4.20-5.80 HEMOGLOBIN (BEAKER) (test auzz=836) 14.0 GM/DL 13.0-16.8 HEMATOCRIT (BEAKER) (test rkxm=553) 42.8 % 40.0-50.0 MEAN CORPUSCULAR VOLUME (BEAKER) (test gzxn=337) 96.2 fL 82.0-98.0 MEAN CORPUSCULAR HEMOGLOBIN (BEAKER) (test 31.6 pg 27.0-33.0 isfs=253) MEAN CORPUSCULAR HEMOGLOBIN CONC (BEAKER) (test 32.8 GM/DL 32.0-36.0 quan=672) RED CELL DISTRIBUTION WIDTH (BEAKER) (test 13.8 % 10.3-14.2 uijy=949) PLATELET COUNT (BEAKER) (test ovqu=752) 160 K/CU MM 150-430 MEAN PLATELET VOLUME (BEAKER) (test ibxm=341) 9.3 fL 6.5-10.5 NUCLEATED RED BLOOD CELLS (BEAKER) (test 0 /100 WBC 0-0 wdai=903) NEUTROPHILS RELATIVE PERCENT (BEAKER) (test 54 % nygw=030) LYMPHOCYTES RELATIVE PERCENT (BEAKER) (test 32 % suyd=941) MONOCYTES RELATIVE PERCENT (BEAKER) (test 12 % ejtx=194) EOSINOPHILS RELATIVE PERCENT (BEAKER) (test 2 % egbw=366) BASOPHILS RELATIVE PERCENT (BEAKER) (test 1 % hwxn=230) NEUTROPHILS ABSOLUTE COUNT (BEAKER) (test 3.51 K/ L 1.80-8.00 nlle=611) LYMPHOCYTES ABSOLUTE COUNT (BEAKER) (test 2.05 K/ L 1.48-4.50 saib=877) MONOCYTES ABSOLUTE COUNT (BEAKER) (test 0.78 K/ L 0.00-1.30 wjyk=487) EOSINOPHILS ABSOLUTE COUNT (BEAKER) (test 0.10 K/ L 0.00-0.50 raxa=295) BASOPHILS ABSOLUTE COUNT (BEAKER) (test 0.06 K/ L 0.00-0.20 ldec=041) [id number] 04:45:00 Test Item Value Reference Range Comments PROTIME (BEAKER) (test fxrq=724) 14.5 seconds 11.7-14.7 INR (BEAKER) (test shdr=558) 1.1 <=5.9 PARTIAL THROMBOPLASTIN TIME (BEAKER) (test 27.7 seconds 22.5-36.0 ncut=235) RECOMMENDED COUMADIN/WARFARIN INR THERAPY RANGESSTANDARD DOSE: 2.0 - 3.0 Includes: PROPHYLAXIS forvenous thrombosis, systemic embolization; TREATMENT for venous thrombosis and/or pulmonary embolus.HIGH RISK: Target INR is 2.5-3.5 for patients with mechanical heart valves.URINALYSIS W/ [id number] 04 :29:00 Test Item Value Reference Range Comments COLOR (BEAKER) (test cqfi=526) Light Yellow CLARITY (BEAKER) (test nlsw=997) Clear SPECIFIC GRAVITY UA (BEAKER) (test qdhm=744) 1.007 1.001-1.035 PH UA (BEAKER) (test zcbw=717) 6.0 5.0-8.0 PROTEIN UA (BEAKER) (test bcik=949) Negative Negative GLUCOSE UA (BEAKER) (test rdww=131) Negative Negative KETONES UA (BEAKER) (test xmbj=936) Negative Negative BILIRUBIN UA (BEAKER) (test mknx=616) Negative Negative BLOOD UA (BEAKER) (test pksf=145) Negative Negative NITRITE UA (BEAKER) (test sfvy=648) Negative Negative LEUKOCYTE ESTERASE UA (BEAKER) (test jjyx=316) Negative Negative UROBILINOGEN UA (BEAKER) (test obuq=947) 0.2 mg/dL 0.2-1.0 RBC UA (BEAKER) (test ucns=036) < /HPF WBC UA (BEAKER) (test lsru=493) 1 /HPF SOURCE(BEAKER) (test sgmj=3626) Urine, Voided
[2018-06-13 00:14] LABS: Potassium 4.2 mmol/L (3.5-5.1)
--- NOTE | 2018-06-13 00:18 | ER ---
Nurse's Notes [facility] Name: Blair Baca Age: 67 yrs Sex: Male : 1950 Arrival Date: 06/12/2018 Time: 23:11 Bed 6 Private MD: Bernard Chaney E Diagnosis: Dehydration;Cramp and spasm-Left lower leg Presentation: 06/12 23:22 Presenting complaint: Patient states: shooting pain down left leg. pt with chronic back ak1 pain and should be going for "back injections" pt has not taken his blood pressure medication today. Dr. Chaney - PCP. Transition of care: patient was not received from another setting of care. Onset of symptoms was June 12, 2018. Risk Assessment: Do you want to hurt yourself or someone else? Patient reports no desire to harm self or others. Initial Sepsis Screen: Does the patient meet any 2 criteria? No. Patient's initial sepsis screen is negative. Does the patient have a suspected source of infection? No. Patient's initial sepsis screen is negative. Care prior to arrival: None. 23:22 Method Of Arrival: Ambulatory ak1 23:22 Acuity: AMILCAR 4 ak1 Triage Assessment: 23:24 General: Appears in no apparent distress. Behavior is calm, cooperative. Pain: ak1 Complains of pain in left leg. EENT: No signs and/or symptoms were reported regarding the EENT system. Neuro: No deficits noted. Cardiovascular: No deficits noted. Respiratory: No deficits noted. GI: No signs and/or symptoms were reported involving the gastrointestinal system. : No signs and/or symptoms were reported regarding the genitourinary system. Derm: No signs and/or symptoms reported regarding the dermatologic system. Musculoskeletal: Range of motion: intact in all extremities, Reports pain in left leg since tonight. Historical: - Allergies: 23:24 No Known Allergies; ak1 - Home Meds: 23:24 lisinopril 20 mg Oral tab 1 tab twice daily [Active]; hydrochlorothiazide 25 mg Oral ak1 tab 1 tab once daily [Active]; - PMHx: 23:24 Hyperlipidemia; Hypertension; ak1 23:26 chronic back pain; ak1 - PSHx: 23:24 kidney surgery - left kidney removed; vein sx right leg; ak1 - Immunization history:: Adult Immunizations unknown. - Social history:: Smoking status: Patient/guardian denies using tobacco. - Ebola Screening: : No symptoms or risks identified at this time. Screenin:26 Abuse screen: Denies threats or abuse. Denies injuries from another. Nutritional ak1 screening: No deficits noted. Tuberculosis screening: No symptoms or risk factors identified. Fall Risk None identified. Assessment: 23:27 Reassessment: Patient appears in no apparent distress at this time. No changes from ak1 previously documented assessment. Patient is alert, oriented x 3, equal unlabored respirations, skin warm/dry/pink. see triage assessment. Vital Signs: 23:24 BP 160 / 102; Pulse 67; Resp 18; Temp 98.8(O); Pulse Ox 99% on R/A; Weight 108.86 kg ak1 (R); Height 6 ft. 5 in. (195.58 cm); Pain 2/10; 06/13 00:12 BP 160 / 99; Pulse 69; Resp 18; Pulse Ox 97% on R/A; Pain 0/10; ak1 01:04 BP 132 / 98; Pulse 63; Resp 16; Pulse Ox 98% on R/A; Pain 0/10; ak1 06/12 23:24 Body Mass Index 28.46 (108.86 kg, 195.58 cm) ak1 ED Course: 06/12 23:11 Patient arrived in ED. al2 23:11 Bernard Chaney MD is Private Physician. al2 23:18 Edward Wyatt NP is PHCP. pm1 23:18 Chapito Rodriguez MD is Attending Physician. pm1 23:22 Philly Zepeda, MILENA is Primary Nurse. ak1 23:23 Triage completed. ak1 23:24 Arm band placed on Patient placed in an exam room, on a stretcher, on pulse oximetry, ak1 Patient notified of wait time. 23:26 Patient has correct armband on for positive identification. Bed in low position. Call ak1 light in reach. Side rails up X 1. Pulse ox on. NIBP on. 23:45 Inserted saline lock: 22 gauge in right antecubital area, using aseptic technique. cc3 Blood collected. 06/13 00:16 Bernard Chaney MD is Referral Physician. pm1 00:22 No provider procedures requiring assistance completed. ak1 00:23 Awaiting: fluid bolus to complete that was ordered at time of discharge. ak1 01:53 IV discontinued, intact, bleeding controlled, No redness/swelling at site. Pressure ak1 dressing applied. Administered Medications: 00:21 Drug: NS 0.9% 1000 ml Route: IV; Rate: 1000 ml; Site: right antecubital; ak1 01:53 Follow up: IV Status: Completed infusion ak1 Outcome: 00:17 Discharge ordered by MD. pm1 00:22 Condition: stable ak1 01:04 Discharge instructions given to patient, Instructed on discharge instructions, follow ak1 up and referral plans. Demonstrated understanding of instructions, follow-up care. 01:54 Discharged to home ambulatory. ak1 01:54 Patient left the ED. ak1 Signatures: Philly Zepeda RN RN ak1 Edward Wyatt NP CASTING DIRECTOR pm1 Ginny Gaines al2 Maria E Conway cc3
--- NOTE | 2018-06-13 00:18 | EDPHYS ---
Physician Documentation [facility] Name: Blair Baca Age: 67 yrs Sex: Male : 1950 Arrival Date: 06/12/2018 Time: 23:11 Bed 6 Private MD: Bernard Chaney E ED Physician Chapito Rodriguez HPI: 06/13 00:05 This 67 yrs old Black Male presents to ER via Ambulatory with complaints of Leg Pain. pm1 00:10 The patient presents with pain. The complaints affect the left calf. Context: The pm1 problem was sustained at home, resulted from an unknown cause, the patient can fully bear weight, the patient is able to ambulate. Onset: The symptoms/episode began/occurred today. Modifying factors: The symptoms are alleviated by dorsiflexion of left foot improved his cramping to left calf. Associated signs and symptoms: Pertinent negatives calf tenderness, fever, numbness, swelling, weakness. Treatment prior to arrival includes: no previous treatment. Severity of symptoms: in the emergency department the symptoms have improved. The patient has not experienced similar symptoms in the past. The patient has not recently seen a physician. patient working outside in the heat and after he got done working in the yard he experienced some cramping to his left calf. Patient with a bad lower back which has been recommended steroid injection treatment. Patient has been afraid to get the steroid injections and has not gotten any. Patient believes that the pain to his left lower leg might be related to his back. Historical: - Allergies: 06/12 23:24 No Known Allergies; ak1 - Home Meds: 23:24 lisinopril 20 mg Oral tab 1 tab twice daily [Active]; hydrochlorothiazide 25 mg Oral ak1 tab 1 tab once daily [Active]; - PMHx: 23:24 Hyperlipidemia; Hypertension; ak1 23:26 chronic back pain; ak1 - PSHx: 23:24 kidney surgery - left kidney removed; vein sx right leg; ak1 - Immunization history:: Adult Immunizations unknown. - Social history:: Smoking status: Patient/guardian denies using tobacco. - Ebola Screening: : No symptoms or risks identified at this time. ROS: 06/13 00:10 Constitutional: Negative for fever, chills, and weight loss, Eyes: Negative for injury, pm1 pain, redness, and discharge, ENT: Negative for injury, pain, and discharge, Neck: Negative for injury, pain, and swelling, Cardiovascular: Negative for chest pain, palpitations, and edema, Respiratory: Negative for shortness of breath, cough, wheezing, and pleuritic chest pain, Abdomen/GI: Negative for abdominal pain, nausea, vomiting, diarrhea, and constipation, Back: Negative for injury and pain. Skin: Negative for injury, rash, and discoloration, Neuro: Negative for headache, weakness, numbness, tingling, and seizure. MS/extremity: Positive for pain, of the left calf, Negative for paresthesias, swelling. Exam: 00:10 Constitutional: This is a well developed, well nourished patient who is awake, alert, pm1 and in no acute distress. Head/Face: Normocephalic, atraumatic. Eyes: Pupils equal round and reactive to light, extra-ocular motions intact. Lids and lashes normal. Conjunctiva and sclera are non-icteric and not injected. Cornea within normal limits. Periorbital areas with no swelling, redness, or edema. ENT: Nares patent. No nasal discharge, no septal abnormalities noted. Tympanic membranes are normal and external auditory canals are clear. Oropharynx with no redness, swelling, or masses, exudates, or evidence of obstruction, uvula midline. Mucous membranes moist. Neck: Trachea midline, no thyromegaly or masses palpated, and no cervical lymphadenopathy. Supple, full range of motion without nuchal rigidity, or vertebral point tenderness. No Meningismus. Chest/axilla: Normal chest wall appearance and motion. Nontender with no deformity. No lesions are appreciated. Cardiovascular: Regular rate and rhythm with a normal S1 and S2. No gallops, murmurs, or rubs. Normal PMI, no JVD. No pulse deficits. Respiratory: Lungs have equal breath sounds bilaterally, clear to auscultation and percussion. No rales, rhonchi or wheezes noted. No increased work of breathing, no retractions or nasal flaring. Abdomen/GI: Soft, non-tender, with normal bowel sounds. No distension or tympany. No guarding or rebound. No evidence of tenderness throughout. Back: No spinal tenderness. No costovertebral tenderness. Full range of motion. Skin: Warm, dry with normal turgor. Normal color with no rashes, no lesions, and no evidence of cellulitis. MS/ Extremity: Pulses equal, no cyanosis. Neurovascular intact. Full, normal range of motion. 00:10 Musculoskeletal/extremity: DVT Exam: No signs of deep vein thrombosis. no pain, no swelling, no tenderness, negative Homans' sign noted on exam, no appreciated bluish discoloration, no erythema, no increased warmth. 00:10 Neuro: Orientation: is normal, Motor: is normal, moves all fours, Sensation: is normal, no obvious gross deficits. Vital Signs: 06/12 23:24 BP 160 / 102; Pulse 67; Resp 18; Temp 98.8(O); Pulse Ox 99% on R/A; Weight 108.86 kg ak1 (R); Height 6 ft. 5 in. (195.58 cm); Pain 2/10; 06/13 00:12 BP 160 / 99; Pulse 69; Resp 18; Pulse Ox 97% on R/A; Pain 0/10; ak1 01:04 BP 132 / 98; Pulse 63; Resp 16; Pulse Ox 98% on R/A; Pain 0/10; ak1 06/12 23:24 Body Mass Index 28.46 (108.86 kg, 195.58 cm) ak1 MDM: 06/12 23:20 Patient medically screened. [facility] 06/13 00:15 Data reviewed: vital signs. Data interpreted: Pulse oximetry: on room air is 97 %. pm1 Interpretation: normal. 00:16 Counseling: I had a detailed discussion with the patient and/or guardian regarding: the pm1 historical points, exam findings, and any diagnostic results supporting the discharge/admit diagnosis, lab results, the need for outpatient follow up, to return to the emergency department if symptoms worsen or persist or if there are any questions or concerns that arise at home. 06/12 23:37 Order name: BMP; Complete Time: 00:15 pm1 06/12 23:37 Order name: IV Saline Lock; Complete Time: 23:48 pm1 Administered Medications: 00:21 Drug: NS 0.9% 1000 ml Route: IV; Rate: 1000 ml; Site: right antecubital; ak1 01:53 Follow up: IV Status: Completed infusion ak1 Disposition: 06:50 Co-signature as Attending Physician, Chapito Rodriguez MD I agree with the assessment and layne plan of care. Disposition: 06/13/18 00:17 Discharged to Home. Impression: Dehydration, Cramp and spasm - Left lower leg. - Condition is Stable. - Discharge Instructions: Dehydration, Adult, Leg Cramps, Rehydration, Adult. - Medication Reconciliation Form, Thank You Letter, Antibiotic Education form. - Follow up: Emergency Department; When: As needed; Reason: Worsening of condition. Follow up: Bernard Chaney MD; When: 2 - 3 days; Reason: Recheck today's complaints, Continuance of care, Re-evaluation by your physician. - Problem is new. - Symptoms have improved. Signatures: Dispatcher [employer] EDOK Chapito Rodriguez MD MD cha Krenek, Amber, RN RN ak1 Edward Wyatt, CHIEF ORTHOPTIST CHIEF ORTHOPTIST pm1 Corrections: (The following items were deleted from the chart) 01:54 00:17 06/13/2018 00:17 Discharged to Home. Impression: Dehydration; Cramp and spasm - ak1 Left lower leg. Condition is Stable. Forms are Medication Reconciliation Form, Thank You Letter, Antibiotic Education, Prescription Opioid Use. Follow up: Emergency Department; When: As needed; Reason: Worsening of condition. Follow up: Bernard Chaney; When: 2 - 3 days; Reason: Recheck today's complaints, Continuance of care, Re-evaluation by your physician. Problem is new. Symptoms have improved. pm1
[2018-06-13] MEDS ORDERED: NA CHLORIDE 0.9% 1,000 ML ONE (00:25)
== END 2018-06-13 01:54 | disposition home or self-care (01) ==
LOC: ER 23:08
DX: E86.0 Dehydration (principal); I10 Essential (primary) hypertension; E78.5 Hyperlipidemia, unspecified
CPT/HCPCS: 36415; 80048; 96360; 96361; 99284; J7030

== ENCOUNTER 2019-01-26 01:52 | Emergency (ER) | payer OTHER ==
--- OUTSIDE RECORDS SUMMARY | 2019-01-26 01:54 | XMS REPORT | Clinical Summary ---
:[address] [facility] Address [address] [place] [address] Care Team Providers Name Role Phone Unavailable Primary Care Provider Unavailable Allergies No Known Allergies Medications Medication Sig Dispensed Refills Start Date End Date Status lisinopril Take 20 mg by 0 Active (PRINIVIL,ZESTRIL) 20 MG mouth 2 (two) tablet times daily. hydroCHLOROthiazide Take 25 mg by 0 Active (HYDRODIURIL) 25 MG tablet mouth daily. pravastatin (PRAVACHOL) 20 Take 20 mg by 0 Active MG tablet mouth daily. Active Problems Problem Noted Date Renal mass, left 01/06/2017 Flank pain 01/06/2017 Social History Tobacco Use Types Packs/Day Years Used Date Never Smoker Alcohol Use Drinks/Week oz/Week Comments Yes 1 Cans of beer 0.6 OCCASSIONALLY Sex Assigned at Date Recorded Not on file Job Start Date Occupation Industry Not on file Not on file Not on file Travel History Travel Start Travel End No recent travel history available. Last Filed Vital Signs Not on file Plan of Treatment Not on file Results Not on fileafter 01/25/2018 Insurance Payer Benefit Plan / Subscriber ID Type Phone Address Group BLUE CROSS/BLUE BCBS PPO POS EPO xxxxxxxxxxxx PPO [phone] [address] [place] [address] Advance Directives For more information, please contact:[place] [id number] [place], [place] [phone] Code Status Date Activated Date Inactivated Comments Full Code 01/06/2017 1:01 AM 01/14/2017 8:25 PM This code status was determined by: Patient
--- OUTSIDE RECORDS SUMMARY | 2019-01-26 01:55 | XMS REPORT ---
:1950 Author Organization [facility] Address [address] [place] [address] Care Team Providers Name Role Phone JEROME DAO Unavailable Unavailable Problems This patient has no known problems. Allergies, Adverse Reactions, Alerts This patient has no known allergies or adverse reactions. Medications This patient has no known medications. Results Test Description Test Time Test Comments Text Results Atomic Results Result Comments TISSUE 2017-01-17 Surgical Pathology Report Case: [id number] EXAM 15:47:00 Irineo rodney Provider: Jerome Dao MD Ordering Provider: Jerome Dao MD Ordering Location: [address] Collected: 01/10/2017 1543 Service Pathologist: Saumya [...] SYNOPTIC REPORT Signing Pathologist Direct Phone Line: [phone] tumor cells stain positive for PAX-8, AMACR, [...] Involved: Specify: 0 Distant Metastasis (pM): Not [id number]; [id number]; 37096 X 3Left renal massLeft kidney, spleen, tail [...] margins; A2, parallel pancreatic resection margin; A3-A4, loan representative sections of mass with adherent spleen; A5-A8, loan representative sections of mass with adherent pancreas; A9-A14, loan representative sections of mass with renal parenchyma; A15-A24, additional loan representative sections of mass; A25-A26, loan representative sections of pancreas; A27-A28, loan representative sections of adrenal gland; A29-A30, loan representative sections of spleen; A31, accessory spleen; A32, loan representative section of uninvolved kidney with pelvis and caliceal system; A33, loan representative section of uninvolved kidney; A34, renal [...] developed and its performance characteristics determined by [facility], Pathology Laboratory. It has not been [...] Value Reference Range Comments CULTURE (BEAKER) (test vorb=5715) No anaerobes isolated HEMOGLOBIN AND [id number] 14:55:00 Test Item Value Reference Range Comments HEMOGLOBIN (BEAKER) (test eiuv=804) 11.9 GM/DL 13.0-16.8 HEMATOCRIT (BEAKER) (test ikct=443) 35.7 % 40.0-50.0 CBC (HEMOGRAM ONLY)2017-01-14 10:41:00 Test Item Value Reference Range Comments WHITE BLOOD CELL COUNT (BEAKER) (test zjpn=194) 6.9 K/ L 4.0-10.0 RED BLOOD CELL COUNT (BEAKER) (test sdqz=260) 2.66 M/ L 4.20-5.80 HEMOGLOBIN (BEAKER) (test orcu=825) 8.7 GM/DL 13.0-16.8 HEMATOCRIT (BEAKER) (test ihql=576) 28.4 % 40.0-50.0 MEAN CORPUSCULAR VOLUME (BEAKER) (test ukhd=257) 107.0 fL 82.0-98.0 MEAN CORPUSCULAR HEMOGLOBIN (BEAKER) (test 32.6 pg 27.0-33.0 kgek=768) MEAN CORPUSCULAR HEMOGLOBIN CONC (BEAKER) (test 30.5 GM/DL 32.0-36.0 ahko=759) RED CELL DISTRIBUTION WIDTH (BEAKER) (test 13.4 % 10.3-14.2 ycue=302) PLATELET COUNT (BEAKER) (test piyj=334) 199 K/CU MM 150-430 MEAN PLATELET VOLUME (BEAKER) (test pkxb=053) 8.6 fL 6.5-10.5 NUCLEATED RED BLOOD CELLS (BEAKER) (test 0 /100 WBC 0-0 bijw=957) 0.00SURGICALLY OBTAINED CULTURE + GRAM [id number] 23:39:00 Test Item Value Reference Range Comments CULTURE (BEAKER) (test tktg=0207) No growth GRAM STAIN RESULT (BEAKER) (test 3+ WBCs gzss=9394) GRAM STAIN RESULT (BEAKER) (test No organisms seen xslk=63692) AMYLASE, BODY [id number] 04:49:00 Test Item Value Reference Range Comments AMYLASE FLUID (BEAKER) (test kogk=331) 158 U/L Absence of reference range indicates that normals have not been defined.Assay performance has not been validated for this type of specimen.AMYLASE, BODY [id number] 09:38:00 Test Item Value Reference Range Comments AMYLASE FLUID (BEAKER) (test qaqx=405) 1456 U/L Absence of reference range indicates that normals have not been defined.Assay performance has not been validated for this type of specimen.[id number] 06:54:00 Test Item Value Reference Range Comments POTASSIUM (BEAKER) (test 3.8 meq/L 3.5-5.1 Specimen slightly hemolyzed prgp=261) BASIC METABOLIC [id number] 06:54:00 Test Item Value Reference Range Comments SODIUM (BEAKER) (test 138 meq/L 136-145 eyia=755) POTASSIUM (BEAKER) (test 3.8 meq/L 3.5-5.1 Specimen slightly uzju=483) hemolyzed CHLORIDE (BEAKER) (test 104 meq/L 98-107 ogrf=948) CO2 (BEAKER) (test 26 meq/L 22-29 wurv=455) BLOOD UREA NITROGEN 10 mg/dL 7-21 (BEAKER) (test qgce=075) CREATININE (BEAKER) (test 1.28 mg/dL 0.57-1.25 Specimen slightly pols=923) hemolyzed GLUCOSE RANDOM (BEAKER) 137 mg/dL 70-105 (test kzwg=247) CALCIUM (BEAKER) (test 8.5 mg/dL 8.4-10.2 xavf=518) EGFR (BEAKER) (test 69 mL/min/1.73 sq m ESTIMATED GFR IS NOT jlcc=7023) ACCURATE CREATININE CLEARANCE IN PREDICTING GLOMERULAR FILTRATION RATE. ESTIMATED GFR IS NOT APPLICABLE FOR DIALYSIS PATIENTS. HEMOGLOBIN AND [id number] 06:53:00 Test Item Value Reference Range Comments HEMOGLOBIN (BEAKER) (test shuj=059) 12.1 GM/DL 13.0-16.8 HEMATOCRIT (BEAKER) (test senx=691) 37.8 % 40.0-50.0 [id number] 14:34:00Medical Cytology Report Case: [id number] Authorizing Provider: Jerome Dao MD Ordering Provider: Jerome Dao MD OrderingLocation: [address] Collected: 1147 Service Pathologist: Catrachito Hernandez, Received: 01/10/2017 1543 Specimen: Kidney, Left LEFT RENAL MASS ASPIRATE ( CYTOSPINS AND CELL BLOCK): - NEGATIVE FOR MALIGNANT CELLS Signing Pathologist Direct Phone Line: [phone] cytospins and radha block show mostly old blood elements with no viable epithelial cells present.99212, [id number] cm left renal mass, flank painLEFT RENAL MASS ASPIRATE (CYTOSPINS AND CELL BLOCK)22 mls bloody; 4 cytospins, cell blockCollected: [id number]: [id number] [facility], Department of Pathology, [address] [place] [address], [facility], [address] [place] [address] , [id number] [id number] 12:12:00 Test Item Value Reference Range Comments CULTURE (BEAKER) (test 10-19,000 col/mL skin lux heeb=0746) AMYLASE, BODY [id number] 07:22:00 Test Item Value Reference Range Comments AMYLASE FLUID (BEAKER) (test rqoq=426) 6125 U/L Absence of reference range indicates that normals have not been defined.Assay performance has not been validated for this type of specimen.CBC W/PLT COUNT & amp; AUTO [id number] 06:40:00 Test Item Value Reference Range Comments WHITE BLOOD CELL COUNT (BEAKER) (test uhnc=368) 11.9 K/ L 4.0-10.0 RED BLOOD CELL COUNT (BEAKER) (test cjzw=756) 4.15 M/ L 4.20-5.80 HEMOGLOBIN (BEAKER) (test yfty=041) 12.9 GM/DL 13.0-16.8 HEMATOCRIT (BEAKER) (test ejcm=411) 40.0 % 40.0-50.0 MEAN CORPUSCULAR VOLUME (BEAKER) (test dpsh=373) 96.4 fL 82.0-98.0 MEAN CORPUSCULAR HEMOGLOBIN (BEAKER) (test 31.2 pg 27.0-33.0 ziou=697) MEAN CORPUSCULAR HEMOGLOBIN CONC (BEAKER) (test 32.3 GM/DL 32.0-36.0 ksxv=633) RED CELL DISTRIBUTION WIDTH (BEAKER) (test 13.9 % 10.3-14.2 zmzq=782) PLATELET COUNT (BEAKER) (test ffye=959) 183 K/CU MM 150-430 MEAN PLATELET VOLUME (BEAKER) (test wcts=010) 9.1 fL 6.5-10.5 NUCLEATED RED BLOOD CELLS (BEAKER) (test 0 /100 WBC 0-0 cjjm=278) NEUTROPHILS RELATIVE PERCENT (BEAKER) (test 76 % umbu=438) LYMPHOCYTES RELATIVE PERCENT (BEAKER) (test 11 % bevm=652) MONOCYTES RELATIVE PERCENT (BEAKER) (test 13 % uaqx=974) EOSINOPHILS RELATIVE PERCENT (BEAKER) (test 0 % sgam=478) BASOPHILS RELATIVE PERCENT (BEAKER) (test 0 % ssqb=732) NEUTROPHILS ABSOLUTE COUNT (BEAKER) (test 9.04 K/ L 1.80-8.00 oqat=352) LYMPHOCYTES ABSOLUTE COUNT (BEAKER) (test 1.28 K/ L 1.48-4.50 ipiq=169) MONOCYTES ABSOLUTE COUNT (BEAKER) (test 1.53 K/ L 0.00-1.30 mxui=440) EOSINOPHILS ABSOLUTE COUNT (BEAKER) (test 0.02 K/ L 0.00-0.50 jjyz=944) BASOPHILS ABSOLUTE COUNT (BEAKER) (test 0.01 K/ L 0.00-0.20 imgr=184) 0.00BASIC METABOLIC [id number] 05:56:00 Test Item Value Reference Range Comments SODIUM (BEAKER) (test 136 meq/L 136-145 zcgx=173) POTASSIUM (BEAKER) (test 5.2 meq/L 3.5-5.1 Specimen slightly lcbl=143) hemolyzed CHLORIDE (BEAKER) (test 105 meq/L 98-107 uwgh=073) CO2 (BEAKER) (test 23 meq/L 22-29 mlnt=972) BLOOD UREA NITROGEN 11 mg/dL 7-21 (BEAKER) (test mnjz=787) CREATININE (BEAKER) (test 1.46 mg/dL 0.57-1.25 Specimen slightly lvhq=039) hemolyzed GLUCOSE RANDOM (BEAKER) 302 mg/dL 70-105 (test ibyn=294) CALCIUM (BEAKER) (test 8.1 mg/dL 8.4-10.2 klko=389) EGFR (BEAKER) (test 59 mL/min/1.73 sq m ESTIMATED GFR IS NOT sgjx=0567) ACCURATE CREATININE CLEARANCE IN PREDICTING GLOMERULAR FILTRATION RATE. ESTIMATED GFR IS NOT APPLICABLE FOR DIALYSIS PATIENTS. BASIC METABOLIC [id number] 17:46:00 Test Item Value Reference Range Comments SODIUM (BEAKER) (test 139 meq/L 136-145 bedj=568) POTASSIUM (BEAKER) (test 4.1 meq/L 3.5-5.1 gtua=745) CHLORIDE (BEAKER) (test 107 meq/L 98-107 ejqi=969) CO2 (BEAKER) (test 20 meq/L 22-29 ystg=668) BLOOD UREA NITROGEN 10 mg/dL 7-21 (BEAKER) (test yvja=725) CREATININE (BEAKER) (test 1.44 mg/dL 0.57-1.25 ukll=869) GLUCOSE RANDOM (BEAKER) 176 mg/dL 70-105 (test efvd=641) CALCIUM (BEAKER) (test 8.2 mg/dL 8.4-10.2 svhx=607) EGFR (BEAKER) (test 60 mL/min/1.73 sq m ESTIMATED GFR IS NOT skcr=3312) ACCURATE CREATININE CLEARANCE IN PREDICTING GLOMERULAR FILTRATION RATE. ESTIMATED GFR IS NOT APPLICABLE FOR DIALYSIS PATIENTS. CBC W/PLT COUNT & AUTO [id number] 17:28:00 Test Item Value Reference Range Comments WHITE BLOOD CELL COUNT (BEAKER) (test qfpl=514) 13.5 K/ L 4.0-10.0 RED BLOOD CELL COUNT (BEAKER) (test nykf=054) 4.20 M/ L 4.20-5.80 HEMOGLOBIN (BEAKER) (test wrml=453) 13.1 GM/DL 13.0-16.8 HEMATOCRIT (BEAKER) (test hhvx=618) 39.9 % 40.0-50.0 MEAN CORPUSCULAR VOLUME (BEAKER) (test dfac=855) 94.9 fL 82.0-98.0 MEAN CORPUSCULAR HEMOGLOBIN (BEAKER) (test 31.1 pg 27.0-33.0 teuk=168) MEAN CORPUSCULAR HEMOGLOBIN CONC (BEAKER) (test 32.8 GM/DL 32.0-36.0 evsd=845) RED CELL DISTRIBUTION WIDTH (BEAKER) (test 12.6 % 10.3-14.2 qhhb=960) PLATELET COUNT (BEAKER) (test nbvc=091) 180 K/CU MM 150-430 MEAN PLATELET VOLUME (BEAKER) (test shep=616) 9.1 fL 6.5-10.5 NUCLEATED RED BLOOD CELLS (BEAKER) (test 0 /100 WBC 0-0 qsoi=902) NEUTROPHILS RELATIVE PERCENT (BEAKER) (test 89 % qqpr=830) LYMPHOCYTES RELATIVE PERCENT (BEAKER) (test 6 % cihr=545) MONOCYTES RELATIVE PERCENT (BEAKER) (test 5 % lguj=207) EOSINOPHILS RELATIVE PERCENT (BEAKER) (test 0 % zxhh=278) BASOPHILS RELATIVE PERCENT (BEAKER) (test 0 % peuv=535) NEUTROPHILS ABSOLUTE COUNT (BEAKER) (test 12.00 K/ L 1.80-8.00 znjq=987) LYMPHOCYTES ABSOLUTE COUNT (BEAKER) (test 0.80 K/ L 1.48-4.50 evre=702) MONOCYTES ABSOLUTE COUNT (BEAKER) (test 0.68 K/ L 0.00-1.30 vsxz=847) EOSINOPHILS ABSOLUTE COUNT (BEAKER) (test 0.01 K/ L 0.00-0.50 yksb=200) BASOPHILS ABSOLUTE COUNT (BEAKER) (test 0.04 K/ L 0.00-0.20 rnuw=873) 0.00POCT-GLUCOSE [id number] 08:00:00 Test Item Value Reference Range Comments POC-GLUCOSE METER (BEAKER) 109 mg/dL 70-110 TESTED AT [address] (test ifom=9728) [facility] [address] HEPATIC FUNCTION [id number] 04:56:00 Test Item Value Reference Range Comments TOTAL PROTEIN (BEAKER) (test llaa=922) 7.3 gm/dL 6.0-8.3 ALBUMIN (BEAKER) (test swif=8962) 4.0 g/dL 3.5-5.0 BILIRUBIN TOTAL (BEAKER) (test dcwx=519) 0.7 mg/dL 0.2-1.2 BILIRUBIN DIRECT (BEAKER) (test lskr=586) 0.3 mg/dL 0.1-0.5 ALKALINE PHOSPHATASE (BEAKER) (test zjek=587) 46 U/L 40-150 AST (SGOT) (BEAKER) (test njpr=907) 26 U/L 5-34 ALT (SGPT) (BEAKER) (test yuxo=656) 16 U/L 6-55 BASIC METABOLIC [id number] 04:56:00 Test Item Value Reference Range Comments SODIUM (BEAKER) (test 141 meq/L 136-145 qvto=171) POTASSIUM (BEAKER) (test 4.5 meq/L 3.5-5.1 xssg=050) CHLORIDE (BEAKER) (test 106 meq/L 98-107 aoxs=187) CO2 (BEAKER) (test 26 meq/L 22-29 jgra=906) BLOOD UREA NITROGEN 14 mg/dL 7-21 (BEAKER) (test goth=878) CREATININE (BEAKER) (test 1.23 mg/dL 0.57-1.25 luhr=956) GLUCOSE RANDOM (BEAKER) 92 mg/dL 70-105 (test txzd=036) CALCIUM (BEAKER) (test 9.3 mg/dL 8.4-10.2 ehjv=770) EGFR (BEAKER) (test 72 mL/min/1.73 sq m ESTIMATED GFR IS NOT yngh=6067) ACCURATE CREATININE CLEARANCE IN PREDICTING GLOMERULAR FILTRATION RATE. ESTIMATED GFR IS NOT APPLICABLE FOR DIALYSIS PATIENTS. CBC W/PLT COUNT & AUTO [id number] 04:46:00 Test Item Value Reference Range Comments WHITE BLOOD CELL COUNT (BEAKER) (test rrpq=715) 6.5 K/ L 4.0-10.0 RED BLOOD CELL COUNT (BEAKER) (test ttct=659) 4.45 M/ L 4.20-5.80 HEMOGLOBIN (BEAKER) (test mkay=542) 14.0 GM/DL 13.0-16.8 HEMATOCRIT (BEAKER) (test nofk=602) 42.8 % 40.0-50.0 MEAN CORPUSCULAR VOLUME (BEAKER) (test fwuc=040) 96.2 fL 82.0-98.0 MEAN CORPUSCULAR HEMOGLOBIN (BEAKER) (test 31.6 pg 27.0-33.0 krxs=520) MEAN CORPUSCULAR HEMOGLOBIN CONC (BEAKER) (test 32.8 GM/DL 32.0-36.0 kkbr=118) RED CELL DISTRIBUTION WIDTH (BEAKER) (test 13.8 % 10.3-14.2 eemz=944) PLATELET COUNT (BEAKER) (test btbl=502) 160 K/CU MM 150-430 MEAN PLATELET VOLUME (BEAKER) (test tyno=594) 9.3 fL 6.5-10.5 NUCLEATED RED BLOOD CELLS (BEAKER) (test 0 /100 WBC 0-0 rkmw=914) NEUTROPHILS RELATIVE PERCENT (BEAKER) (test 54 % azju=779) LYMPHOCYTES RELATIVE PERCENT (BEAKER) (test 32 % qaqi=987) MONOCYTES RELATIVE PERCENT (BEAKER) (test 12 % mbbg=038) EOSINOPHILS RELATIVE PERCENT (BEAKER) (test 2 % gisi=052) BASOPHILS RELATIVE PERCENT (BEAKER) (test 1 % svgu=276) NEUTROPHILS ABSOLUTE COUNT (BEAKER) (test 3.51 K/ L 1.80-8.00 fvad=424) LYMPHOCYTES ABSOLUTE COUNT (BEAKER) (test 2.05 K/ L 1.48-4.50 xpsk=108) MONOCYTES ABSOLUTE COUNT (BEAKER) (test 0.78 K/ L 0.00-1.30 zrny=126) EOSINOPHILS ABSOLUTE COUNT (BEAKER) (test 0.10 K/ L 0.00-0.50 qesn=486) BASOPHILS ABSOLUTE COUNT (BEAKER) (test 0.06 K/ L 0.00-0.20 zhob=331) 0.00PT/[id number] 04:45:00 Test Item Value Reference Range Comments PROTIME (BEAKER) (test siep=050) 14.5 seconds 11.7-14.7 INR (BEAKER) (test zxmy=426) 1.1 <=5.9 PARTIAL THROMBOPLASTIN TIME (BEAKER) (test 27.7 seconds 22.5-36.0 qpdi=788) RECOMMENDED COUMADIN/WARFARIN INR THERAPY RANGESSTANDARD DOSE: 2.0 - 3.0 Includes: PROPHYLAXIS forvenous thrombosis, systemic embolization; TREATMENT for venous thrombosis and/or pulmonary embolus.HIGH RISK: Target INR is 2.5-3.5 for patients with mechanical heart valves.URINALYSIS W/ [id number] 04 :29:00 Test Item Value Reference Range Comments COLOR (BEAKER) (test mkzz=975) Light Yellow CLARITY (BEAKER) (test ptoz=352) Clear SPECIFIC GRAVITY UA (BEAKER) (test ehgh=286) 1.007 1.001-1.035 PH UA (BEAKER) (test snwa=939) 6.0 5.0-8.0 PROTEIN UA (BEAKER) (test qugu=858) Negative Negative GLUCOSE UA (BEAKER) (test dsqe=282) Negative Negative KETONES UA (BEAKER) (test ykqf=777) Negative Negative BILIRUBIN UA (BEAKER) (test xjxs=340) Negative Negative BLOOD UA (BEAKER) (test ckzy=794) Negative Negative NITRITE UA (BEAKER) (test yhel=204) Negative Negative LEUKOCYTE ESTERASE UA (BEAKER) (test bfcu=336) Negative Negative UROBILINOGEN UA (BEAKER) (test mpgg=141) 0.2 mg/dL 0.2-1.0 RBC UA (BEAKER) (test nard=889) < /HPF WBC UA (BEAKER) (test rccv=991) 1 /HPF SOURCE(BEAKER) (test kyyh=1679) Urine, Voided
[2019-01-26] MEDS ORDERED: AMLODIPINE 5 MG TAB ONE (02:53)
--- NOTE | 2019-01-26 03:13 | EDPHYS ---
Physician Documentation [facility] Name: Blair Baca Age: 68 yrs Sex: Male : 1950 Arrival Date: 01/26/2019 Time: 02:02 Bed 14 Private MD: Bernard Chaney E ED Physician Chapito Rodriguez HPI: 01/26 02:39 This 68 yrs old Black Male presents to ER via Ambulatory with complaints of Cough, Leg layne Pain. 02:39 The patient or guardian reports cough. Onset: The symptoms/episode began/occurred 14 layne day(s) ago. Severity of symptoms: At their worst the symptoms were mild, in the emergency department the symptoms are unchanged. Modifying factors: The symptoms are alleviated by nothing, the symptoms are aggravated by nothing. Associated signs and symptoms: The patient has no apparent associated signs or symptoms. The patient has not experienced similar symptoms in the past. Historical: - Allergies: 02:09 No Known Allergies; ed1 - Home Meds: 02:09 lisinopril 20 mg Oral tab 1 tab twice daily [Active]; ed1 - PMHx: 02:09 chronic back pain; Hyperlipidemia; Hypertension; ed1 - PSHx: 02:09 Abdominal surgery; ed1 - Immunization history:: Adult Immunizations up to date. - Social history:: Smoking status: Patient/guardian denies using tobacco. - Ebola Screening: : Patient negative for fever greater than or equal to 101.5 degrees Fahrenheit, and additional compatible Ebola Virus Disease symptoms Patient denies exposure to infectious person Patient denies travel to an Ebola-affected area in the 21 days before illness onset No symptoms or risks identified at this time. - Family history:: not pertinent. ROS: 02:39 Constitutional: Negative for fever, chills, and weight loss, Eyes: Negative for injury, layne pain, redness, and discharge, ENT: Negative for injury, pain, and discharge, Neck: Negative for injury, pain, and swelling, Cardiovascular: Negative for chest pain, palpitations, and edema, Abdomen/GI: Negative for abdominal pain, nausea, vomiting, diarrhea, and constipation, Back: Negative for injury and pain, : Negative for injury, bleeding, discharge, and swelling, MS/Extremity: Negative for injury and deformity, Skin: Negative for injury, rash, and discoloration, Neuro: Negative for headache, weakness, numbness, tingling, and seizure, Psych: Negative for depression, anxiety, suicide ideation, homicidal ideation, and hallucinations, Allergy/Immunology: Negative for hives, rash, and allergies, Endocrine: Negative for neck swelling, polydipsia, polyuria, polyphagia, and marked weight changes, Hematologic/Lymphatic: Negative for swollen nodes, abnormal bleeding, and unusual bruising. 02:39 Respiratory: Positive for cough, with no reported sputum. 02:39 Skin: Positive for rash, of the lateral aspect of right calf. layne Exam: 02:39 Constitutional: This is a well developed, well nourished patient who is awake, alert, layne and in no acute distress. Head/Face: Normocephalic, atraumatic. Eyes: Pupils equal round and reactive to light, extra-ocular motions intact. Lids and lashes normal. Conjunctiva and sclera are non-icteric and not injected. Cornea within normal limits. Periorbital areas with no swelling, redness, or edema. ENT: Nares patent. No nasal discharge, no septal abnormalities noted. Tympanic membranes are normal and external auditory canals are clear. Oropharynx with no redness, swelling, or masses, exudates, or evidence of obstruction, uvula midline. Mucous membranes moist. Neck: Trachea midline, no thyromegaly or masses palpated, and no cervical lymphadenopathy. Supple, full range of motion without nuchal rigidity, or vertebral point tenderness. No Meningismus. Chest/axilla: Normal chest wall appearance and motion. Nontender with no deformity. No lesions are appreciated. Cardiovascular: Regular rate and rhythm with a normal S1 and S2. No gallops, murmurs, or rubs. Normal PMI, no JVD. No pulse deficits. Respiratory: Lungs have equal breath sounds bilaterally, clear to auscultation and percussion. No rales, rhonchi or wheezes noted. No increased work of breathing, no retractions or nasal flaring. Abdomen/GI: Soft, non-tender, with normal bowel sounds. No distension or tympany. No guarding or rebound. No evidence of tenderness throughout. Back: No spinal tenderness. No costovertebral tenderness. Full range of motion. Male : Normal genitalia with no discharge or lesions. MS/ Extremity: Pulses equal, no cyanosis. Neurovascular intact. Full, normal range of motion. Neuro: Awake and alert, GCS 15, oriented to person, place, time, and situation. Cranial nerves II-XII grossly intact. Motor strength 5/5 in all extremities. Sensory grossly intact. Cerebellar exam normal. Normal gait. Psych: Awake, alert, with orientation to person, place and time. Behavior, mood, and affect are within normal limits. 02:39 Skin: Appearance: Color: normal in color, induration, that is mild is noted, contact dermatitis. Vital Signs: 02:09 BP 146 / 96; Pulse 75; Resp 18; Temp 98.3(O); Pulse Ox 97% on R/A; Weight 113.4 kg; ed1 Height 6 ft. 5 in. (195.58 cm); Pain 0/10; 02:30 BP 120 / 93; Pulse 65; Resp 16; Pulse Ox 98% on R/A; jb4 03:18 BP 136 / 81; Pulse 78; Resp 16; Pulse Ox 100% on R/A; jb4 02:09 Body Mass Index 29.65 (113.40 kg, 195.58 cm) ed1 MDM: 02:[address] [facility] 02:47 Data reviewed: vital signs, nurses notes, radiologic studies, plain films. [facility] 01/26 02:35 Order name: Chest Pa And Lat (2 Views) XRAY [facility] 01/26 02:38 Order name: Blood Glucose Level; Complete Time: 02:46 [facility] Administered Medications: 02:38 CANCELLED (Duplicate Order): Norvasc [address] [facility] 02:41 Drug: Norvasc 5 mg Route: PO; jb4 03:25 Follow up: Response: No adverse reaction jb4 Point of Care Testing: Blood Glucose: 02:46 Blood Glucose: 83 mg/dL; jb4 Ranges: Critical Glucose Levels:Adult <50 mg/dl or >400 mg/dl <40 mg/dl or >180 mg/dl Disposition: 01/26/19 03:12 Discharged to Home. Impression: Cough, Essential (primary) hypertension, Dermatitis, unspecified. - Condition is Stable. - Discharge Instructions: Contact Dermatitis, Hypertension, Rash, Hypertension, Xpla-ly-Kzbh, Rash, Aqhv-sw-Swuz, Cough, Adult, Kisd-rc-Mchf, How to Take Your Blood Pressure, Xqkf-dz-Ezqp, Contact Dermatitis, Lcxd-lo-Ukfo, Cough, Adult, Managing Your Hypertension. - Prescriptions for Norvasc 5 mg Oral Tablet - take 1 tablet by ORAL route once daily; 20 tablet. Nystatin- Triamcinolone 100,000-0.1 unit/g-% Topical Cream - apply 1 application by TOPICAL route 2 times per day; 45 gram. - Medication Reconciliation Form, Thank You Letter, Antibiotic Education, Prescription Opioid Use form. - Follow up: Bernard Chaney; When: 2 - 3 days; Reason: Recheck today's complaints, Continuance of care, Re-evaluation by your physician. Follow up: Eddy Holland; When: 2 - 3 days; Reason: Recheck today's complaints, Re-evaluation by your physician. - Problem is new. - Symptoms have improved. Signatures: Dispatcher [employer] EDMS Chapito Rodriguez MD MD cha Riggs, Erika RN RN ed1 Geovanny Horn RN RN jb4 Corrections: (The following items were deleted from the chart) 02:38 02:35 Norvasc 10 mg PO once ordered. layne tillman 03:25 03:12 01/26/2019 03:12 Discharged to Home. Impression: Cough; Essential (primary) jb4 hypertension; Dermatitis, unspecified. Condition is Stable. Discharge Instructions: Contact Dermatitis, Hypertension, Rash, Hypertension, Zfex-ah-Uoun, Rash, Zlkw-rv-Tjcd, Cough, Adult, Irrt-lg-Xcvm, How to Take Your Blood Pressure, Jrwf-ii-Ztoe, Contact Dermatitis, Txad-ak-Sgkv, Cough, Adult, Managing Your Hypertension. Prescriptions for Norvasc 5 mg Oral Tablet - take 1 tablet by ORAL route once daily; 20 tablet, Nystatin-Triamcinolone 100,000-0.1 unit/g-% Topical Cream - apply 1 application by TOPICAL route 2 times per day; 45 gram. and Forms are Medication Reconciliation Form, Thank You Letter, Antibiotic Education, Prescription Opioid Use. Follow up: Bernard Chaney; When: 2 - 3 days; Reason: Recheck today's complaints, Continuance of care, Re-evaluation by your physician. Follow up: Eddy Holland; When: 2 - 3 days; Reason: Recheck today's complaints, Re-evaluation by your physician. Problem is new. Symptoms have improved. layne
--- NOTE | 2019-01-26 03:13 | ER ---
Nurse's Notes [facility] Name: Blair Baca Age: 68 yrs Sex: Male : 1950 Arrival Date: 01/26/2019 Time: 02:02 Bed 14 Private MD: Bernard Chaney E Diagnosis: Cough;Essential (primary) hypertension;Dermatitis, unspecified Presentation: 01/26 02:07 Presenting complaint: Patient states: I have had a cough for about 2-3 weeks and my ed1 right lower leg itches. Transition of care: patient was not received from another setting of care. Onset of symptoms is unknown. Risk Assessment: Do you want to hurt yourself or someone else? Patient reports no desire to harm self or others. Initial Sepsis Screen: Does the patient meet any 2 criteria? No. Patient's initial sepsis screen is negative. Does the patient have a suspected source of infection? No. Patient's initial sepsis screen is negative. Care prior to arrival: None. 02:07 Method Of Arrival: Ambulatory ed1 02:07 Acuity: AMILCAR 4 ed1 Triage Assessment: 02:09 General: Appears in no apparent distress. Behavior is calm, cooperative. Pain: Denies ed1 pain. Historical: - Allergies: 02:09 No Known Allergies; ed1 - Home Meds: 02:09 lisinopril 20 mg Oral tab 1 tab twice daily [Active]; ed1 - PMHx: 02:09 chronic back pain; Hyperlipidemia; Hypertension; ed1 - PSHx: 02:09 Abdominal surgery; ed1 - Immunization history:: Adult Immunizations up to date. - Social history:: Smoking status: Patient/guardian denies using tobacco. - Ebola Screening: : Patient negative for fever greater than or equal to 101.5 degrees Fahrenheit, and additional compatible Ebola Virus Disease symptoms Patient denies exposure to infectious person Patient denies travel to an Ebola-affected area in the 21 days before illness onset No symptoms or risks identified at this time. - Family history:: not pertinent. Screenin:31 Abuse screen: Denies threats or abuse. Nutritional screening: No deficits noted. jb4 Tuberculosis screening: No symptoms or risk factors identified. Fall Risk None identified. Assessment: 02:28 General: Appears in no apparent distress. comfortable, Behavior is calm, cooperative, jb4 appropriate for age. Pain: Denies pain. Neuro: Level of Consciousness is awake, alert, obeys commands, Oriented to person, place, time, situation. Cardiovascular: Heart tones S1 S2 present Patient's skin is warm and dry. Respiratory: Airway is patent Respiratory effort is even, unlabored, Respiratory pattern is regular, symmetrical, Breath sounds are clear bilaterally. GI: No signs and/or symptoms were reported involving the gastrointestinal system. : No signs and/or symptoms were reported regarding the genitourinary system. EENT: No signs and/or symptoms were reported regarding the EENT system. Derm: Skin is intact, Skin is dry, Skin is normal, Skin temperature is warm. Musculoskeletal: Circulation, motion, and sensation intact. 03:20 Reassessment: Patient appears in no apparent distress at this time. Patient and/or jb4 family updated on plan of care and expected duration. Pain level reassessed. Patient is alert, oriented x 3, equal unlabored respirations, skin warm/dry/pink. Vital Signs: 02:09 BP 146 / 96; Pulse 75; Resp 18; Temp 98.3(O); Pulse Ox 97% on R/A; Weight 113.4 kg; ed1 Height 6 ft. 5 in. (195.58 cm); Pain 0/10; 02:30 BP 120 / 93; Pulse 65; Resp 16; Pulse Ox 98% on R/A; jb4 03:18 BP 136 / 81; Pulse 78; Resp 16; Pulse Ox 100% on R/A; jb4 02:09 Body Mass Index 29.65 (113.40 kg, 195.58 cm) ed1 ED Course: 02:02 Patient arrived in ED. es 02:03 Bernard Chaney MD is Private Physician. es 02:08 Triage completed. ed1 02:09 Arm band placed on. ed1 02:14 Chapito Rodriguez MD is Attending Physician. [facility] 02:28 Geovanny Horn, MILENA is Primary Nurse. jb4 02:31 Patient has correct armband on for positive identification. Bed in low position. Call jb4 light in reach. Side rails up X 1. Pulse ox on. NIBP on. 02:53 Patient moved to radiology via wheelchair. az 02:53 X-ray completed. Patient tolerated procedure well. az 03:05 Chest Pa And Lat (2 Views) XRAY In Process Unspecified. EDMS 03:12 Bernard Chaney MD is Referral Physician. [facility] 03:12 Eddy Holland MD is Referral Physician. layne 03:20 No provider procedures requiring assistance completed. Patient did not have IV access jb4 during this emergency room visit. Administered Medications: 02:38 CANCELLED (Duplicate Order): Norvasc 10 mg PO once layne 02:41 Drug: Norvasc 5 mg Route: PO; jb4 03:25 Follow up: Response: No adverse reaction jb4 Point of Care Testing: Blood Glucose: 02:46 Blood Glucose: 83 mg/dL; jb4 Ranges: Outcome: 03:12 Discharge ordered by . layne 03:20 Discharged to home ambulatory. jb4 03:20 Condition: stable 03:20 Discharge instructions given to patient, Instructed on discharge instructions, follow up and referral plans. medication usage, Demonstrated understanding of instructions, follow-up care, medications, Prescriptions given X 2. 03:25 Patient left the ED. jb4 Signatures: Dispatcher [employer] EDFL Chapito Rodriguez MD MD cha Salyer, Edna es Riggs, Erika RN RN ed1 Geovanny Horn, MILENA RN jb4 Lucia Barton
--- NOTE | 2019-01-26 10:14 | RAD REPORT ---
EXAM DESCRIPTION: Carlos Hanson (2 Views)01/26/2019 3:05 am CLINICAL HISTORY: Cough COMPARISON: None FINDINGS: The lungs appear clear of acute infiltrate. The heart is normal size IMPRESSION: No acute abnormalities displayed
== END 2019-01-26 03:25 | disposition home or self-care (01) ==
LOC: ER 01:52
DX: R05 Cough (principal); I10 Essential (primary) hypertension; E78.5 Hyperlipidemia, unspecified; L30.9 Dermatitis, unspecified
CPT/HCPCS: 71046; 82962; 99284

== ENCOUNTER 2019-08-24 13:07 | Emergency (ER) | payer OTHER ==
--- OUTSIDE RECORDS SUMMARY | 2019-08-24 13:10 | XMS REPORT ---
:1950 Author Organization [facility] Address [address] [place] [address] Care Team Providers Name Role Phone JEROME DAO Unavailable Unavailable Problems This patient has no known problems. Allergies, Adverse Reactions, Alerts This patient has no known allergies or adverse reactions. Medications This patient has no known medications. Results Test Description Test Time Test Comments Text Results Atomic Results Result Comments TISSUE 2017-01-17 Surgical Pathology Report Case: [id number] EXAM 15:47:00 Irineo rodney Provider: Jerome Dao MD Ordering Provider: Jerome Dao MD Ordering Location: [address] Collected: 01/10/2017 1543 Service Pathologist: Saumya [...] SYNOPTIC REPORT Signing Pathologist Direct Phone Line: [phone] tumor cells stain positive for PAX-8, AMACR, [...] Involved: Specify: 0 Distant Metastasis (pM): Not [id number]; 53052; 16549 X 3Left renal massLeft kidney, spleen, tail [...] margins; A2, parallel pancreatic resection margin; A3-A4, electronics parts sales representative sections of mass with adherent spleen; A5-A8, electronics parts sales representative sections of mass with adherent pancreas; A9-A14, electronics parts sales representative sections of mass with renal parenchyma; A15-A24, additional electronics parts sales representative sections of mass; A25-A26, electronics parts sales representative sections of pancreas; A27-A28, electronics parts sales representative sections of adrenal gland; A29-A30, electronics parts sales representative sections of spleen; A31, accessory spleen; A32, electronics parts sales representative section of uninvolved kidney with pelvis and caliceal system; A33, electronics parts sales representative section of uninvolved kidney; A34, renal [...] and its performance characteristics determined by [facility], Pathology Laboratory. It has not been [...] Value Reference Range Comments CULTURE (BEAKER) (test zpbt=7928) No anaerobes isolated HEMOGLOBIN AND [id number] 14:55:00 Test Item Value Reference Range Comments HEMOGLOBIN (BEAKER) (test zjfz=879) 11.9 GM/DL 13.0-16.8 HEMATOCRIT (BEAKER) (test tgdw=941) 35.7 % 40.0-50.0 CBC (HEMOGRAM ONLY)2017-01-14 10:41:00 Test Item Value Reference Range Comments WHITE BLOOD CELL COUNT (BEAKER) (test kxgx=660) 6.9 K/ L 4.0-10.0 RED BLOOD CELL COUNT (BEAKER) (test mrro=462) 2.66 M/ L 4.20-5.80 HEMOGLOBIN (BEAKER) (test hxaq=757) 8.7 GM/DL 13.0-16.8 HEMATOCRIT (BEAKER) (test ddic=540) 28.4 % 40.0-50.0 MEAN CORPUSCULAR VOLUME (BEAKER) (test zumh=840) 107.0 fL 82.0-98.0 MEAN CORPUSCULAR HEMOGLOBIN (BEAKER) (test 32.6 pg 27.0-33.0 ergv=233) MEAN CORPUSCULAR HEMOGLOBIN CONC (BEAKER) (test 30.5 GM/DL 32.0-36.0 tmew=759) RED CELL DISTRIBUTION WIDTH (BEAKER) (test 13.4 % 10.3-14.2 jliw=608) PLATELET COUNT (BEAKER) (test towz=229) 199 K/CU MM 150-430 MEAN PLATELET VOLUME (BEAKER) (test txcn=350) 8.6 fL 6.5-10.5 NUCLEATED RED BLOOD CELLS (BEAKER) (test 0 /100 WBC 0-0 mvya=277) 0.00SURGICALLY OBTAINED CULTURE + GRAM [id number] 23:39:00 Test Item Value Reference Range Comments CULTURE (BEAKER) (test hxmk=9635) No growth GRAM STAIN RESULT (BEAKER) (test 3+ WBCs zbap=9998) GRAM STAIN RESULT (BEAKER) (test No organisms seen zolg=47913) AMYLASE, BODY [id number] 04:49:00 Test Item Value Reference Range Comments AMYLASE FLUID (BEAKER) (test tqgp=830) 158 U/L Absence of reference range indicates that normals have not been defined.Assay performance has not been validated for this type of specimen.AMYLASE, BODY [id number] 09:38:00 Test Item Value Reference Range Comments AMYLASE FLUID (BEAKER) (test fqci=597) 1456 U/L Absence of reference range indicates that normals have not been defined.Assay performance has not been validated for this type of specimen.[id number] 06:54:00 Test Item Value Reference Range Comments POTASSIUM (BEAKER) (test 3.8 meq/L 3.5-5.1 Specimen slightly hemolyzed yuxt=397) BASIC METABOLIC [id number] 06:54:00 Test Item Value Reference Range Comments SODIUM (BEAKER) (test 138 meq/L 136-145 dape=734) POTASSIUM (BEAKER) (test 3.8 meq/L 3.5-5.1 Specimen slightly rkwe=584) hemolyzed CHLORIDE (BEAKER) (test 104 meq/L 98-107 hzql=601) CO2 (BEAKER) (test 26 meq/L 22-29 dzqf=880) BLOOD UREA NITROGEN 10 mg/dL 7-21 (BEAKER) (test ehds=269) CREATININE (BEAKER) (test 1.28 mg/dL 0.57-1.25 Specimen slightly vama=893) hemolyzed GLUCOSE RANDOM (BEAKER) 137 mg/dL 70-105 (test tomz=423) CALCIUM (BEAKER) (test 8.5 mg/dL 8.4-10.2 jchz=104) EGFR (BEAKER) (test 69 mL/min/1.73 sq m ESTIMATED GFR IS NOT spvj=9686) ACCURATE CREATININE CLEARANCE IN PREDICTING GLOMERULAR FILTRATION RATE. ESTIMATED GFR IS NOT APPLICABLE FOR DIALYSIS PATIENTS. HEMOGLOBIN AND [id number] 06:53:00 Test Item Value Reference Range Comments HEMOGLOBIN (BEAKER) (test cobi=606) 12.1 GM/DL 13.0-16.8 HEMATOCRIT (BEAKER) (test npus=770) 37.8 % 40.0-50.0 [id number] 14:34:00Medical Cytology Report Case: [id number] Authorizing Provider: Jerome Dao MD Ordering Provider: Jerome Dao MD OrderingLocation: [address] Collected: 1147 Service Pathologist: Catrachito Hernandez, Received: 01/10/2017 1543 Specimen: Kidney, Left LEFT RENAL MASS ASPIRATE ( CYTOSPINS AND CELL BLOCK): - NEGATIVE FOR MALIGNANT CELLS Signing Pathologist Direct Phone Line: [phone] cytospins and radha block show mostly old blood elements with no viable epithelial cells present.13344, [id number] cm left renal mass, flank painLEFT RENAL MASS ASPIRATE (CYTOSPINS AND CELL BLOCK)22 mls bloody; 4 cytospins, cell blockCollected: [id number]: [id number] [facility], Department of Pathology, [address] [place] [address], [facility], [address] [place] [address] , [phone] [id number] 12:12:00 Test Item Value Reference Range Comments CULTURE (BEAKER) (test 10-19,000 col/mL skin lux dldd=2902) AMYLASE, BODY [id number] 07:22:00 Test Item Value Reference Range Comments AMYLASE FLUID (BEAKER) (test dkdo=285) 6125 U/L Absence of reference range indicates that normals have not been defined.Assay performance has not been validated for this type of specimen.CBC W/PLT COUNT & amp; AUTO [id number] 06:40:00 Test Item Value Reference Range Comments WHITE BLOOD CELL COUNT (BEAKER) (test xjiv=145) 11.9 K/ L 4.0-10.0 RED BLOOD CELL COUNT (BEAKER) (test emrr=496) 4.15 M/ L 4.20-5.80 HEMOGLOBIN (BEAKER) (test kimm=404) 12.9 GM/DL 13.0-16.8 HEMATOCRIT (BEAKER) (test lxyz=825) 40.0 % 40.0-50.0 MEAN CORPUSCULAR VOLUME (BEAKER) (test eqds=552) 96.4 fL 82.0-98.0 MEAN CORPUSCULAR HEMOGLOBIN (BEAKER) (test 31.2 pg 27.0-33.0 xogg=727) MEAN CORPUSCULAR HEMOGLOBIN CONC (BEAKER) (test 32.3 GM/DL 32.0-36.0 nsxb=077) RED CELL DISTRIBUTION WIDTH (BEAKER) (test 13.9 % 10.3-14.2 qumo=785) PLATELET COUNT (BEAKER) (test zdpa=308) 183 K/CU MM 150-430 MEAN PLATELET VOLUME (BEAKER) (test vhhk=191) 9.1 fL 6.5-10.5 NUCLEATED RED BLOOD CELLS (BEAKER) (test 0 /100 WBC 0-0 yqnm=116) NEUTROPHILS RELATIVE PERCENT (BEAKER) (test 76 % cwxm=139) LYMPHOCYTES RELATIVE PERCENT (BEAKER) (test 11 % pwov=574) MONOCYTES RELATIVE PERCENT (BEAKER) (test 13 % pgmo=060) EOSINOPHILS RELATIVE PERCENT (BEAKER) (test 0 % hcob=220) BASOPHILS RELATIVE PERCENT (BEAKER) (test 0 % kmas=101) NEUTROPHILS ABSOLUTE COUNT (BEAKER) (test 9.04 K/ L 1.80-8.00 nzlr=497) LYMPHOCYTES ABSOLUTE COUNT (BEAKER) (test 1.28 K/ L 1.48-4.50 ptvl=656) MONOCYTES ABSOLUTE COUNT (BEAKER) (test 1.53 K/ L 0.00-1.30 zpml=694) EOSINOPHILS ABSOLUTE COUNT (BEAKER) (test 0.02 K/ L 0.00-0.50 uprh=569) BASOPHILS ABSOLUTE COUNT (BEAKER) (test 0.01 K/ L 0.00-0.20 pxai=262) 0.00BASIC METABOLIC [id number] 05:56:00 Test Item Value Reference Range Comments SODIUM (BEAKER) (test 136 meq/L 136-145 dqjc=442) POTASSIUM (BEAKER) (test 5.2 meq/L 3.5-5.1 Specimen slightly yjyv=933) hemolyzed CHLORIDE (BEAKER) (test 105 meq/L 98-107 kfde=951) CO2 (BEAKER) (test 23 meq/L 22-29 jwzh=224) BLOOD UREA NITROGEN 11 mg/dL 7-21 (BEAKER) (test vneq=601) CREATININE (BEAKER) (test 1.46 mg/dL 0.57-1.25 Specimen slightly zshg=025) hemolyzed GLUCOSE RANDOM (BEAKER) 302 mg/dL 70-105 (test izqr=053) CALCIUM (BEAKER) (test 8.1 mg/dL 8.4-10.2 naxb=478) EGFR (BEAKER) (test 59 mL/min/1.73 sq m ESTIMATED GFR IS NOT abgw=6311) ACCURATE CREATININE CLEARANCE IN PREDICTING GLOMERULAR FILTRATION RATE. ESTIMATED GFR IS NOT APPLICABLE FOR DIALYSIS PATIENTS. BASIC METABOLIC [id number] 17:46:00 Test Item Value Reference Range Comments SODIUM (BEAKER) (test 139 meq/L 136-145 vedo=999) POTASSIUM (BEAKER) (test 4.1 meq/L 3.5-5.1 raas=975) CHLORIDE (BEAKER) (test 107 meq/L 98-107 biqv=183) CO2 (BEAKER) (test 20 meq/L 22-29 fdiq=265) BLOOD UREA NITROGEN 10 mg/dL 7-21 (BEAKER) (test bvbl=495) CREATININE (BEAKER) (test 1.44 mg/dL 0.57-1.25 lnpm=611) GLUCOSE RANDOM (BEAKER) 176 mg/dL 70-105 (test jjgc=367) CALCIUM (BEAKER) (test 8.2 mg/dL 8.4-10.2 bfxj=744) EGFR (BEAKER) (test 60 mL/min/1.73 sq m ESTIMATED GFR IS NOT jfts=0087) ACCURATE CREATININE CLEARANCE IN PREDICTING GLOMERULAR FILTRATION RATE. ESTIMATED GFR IS NOT APPLICABLE FOR DIALYSIS PATIENTS. CBC W/PLT COUNT & AUTO [id number] 17:28:00 Test Item Value Reference Range Comments WHITE BLOOD CELL COUNT (BEAKER) (test wxnl=371) 13.5 K/ L 4.0-10.0 RED BLOOD CELL COUNT (BEAKER) (test kdyf=966) 4.20 M/ L 4.20-5.80 HEMOGLOBIN (BEAKER) (test quzl=730) 13.1 GM/DL 13.0-16.8 HEMATOCRIT (BEAKER) (test mnfj=168) 39.9 % 40.0-50.0 MEAN CORPUSCULAR VOLUME (BEAKER) (test zuml=507) 94.9 fL 82.0-98.0 MEAN CORPUSCULAR HEMOGLOBIN (BEAKER) (test 31.1 pg 27.0-33.0 bdpa=944) MEAN CORPUSCULAR HEMOGLOBIN CONC (BEAKER) (test 32.8 GM/DL 32.0-36.0 qxne=879) RED CELL DISTRIBUTION WIDTH (BEAKER) (test 12.6 % 10.3-14.2 zduk=592) PLATELET COUNT (BEAKER) (test edeh=267) 180 K/CU MM 150-430 MEAN PLATELET VOLUME (BEAKER) (test vfke=609) 9.1 fL 6.5-10.5 NUCLEATED RED BLOOD CELLS (BEAKER) (test 0 /100 WBC 0-0 bnxe=199) NEUTROPHILS RELATIVE PERCENT (BEAKER) (test 89 % pxon=234) LYMPHOCYTES RELATIVE PERCENT (BEAKER) (test 6 % ljwv=255) MONOCYTES RELATIVE PERCENT (BEAKER) (test 5 % chfp=460) EOSINOPHILS RELATIVE PERCENT (BEAKER) (test 0 % uzdi=921) BASOPHILS RELATIVE PERCENT (BEAKER) (test 0 % wdro=254) NEUTROPHILS ABSOLUTE COUNT (BEAKER) (test 12.00 K/ L 1.80-8.00 sccm=822) LYMPHOCYTES ABSOLUTE COUNT (BEAKER) (test 0.80 K/ L 1.48-4.50 eaik=906) MONOCYTES ABSOLUTE COUNT (BEAKER) (test 0.68 K/ L 0.00-1.30 kxrh=483) EOSINOPHILS ABSOLUTE COUNT (BEAKER) (test 0.01 K/ L 0.00-0.50 yovj=849) BASOPHILS ABSOLUTE COUNT (BEAKER) (test 0.04 K/ L 0.00-0.20 blej=750) 0.00POCT-GLUCOSE [id number] 08:00:00 Test Item Value Reference Range Comments POC-GLUCOSE METER (BEAKER) 109 mg/dL 70-110 TESTED AT [address] (test qjua=7196) [facility] [address] HEPATIC FUNCTION [id number] 04:56:00 Test Item Value Reference Range Comments TOTAL PROTEIN (BEAKER) (test lgfb=603) 7.3 gm/dL 6.0-8.3 ALBUMIN (BEAKER) (test kkka=6553) 4.0 g/dL 3.5-5.0 BILIRUBIN TOTAL (BEAKER) (test slzh=692) 0.7 mg/dL 0.2-1.2 BILIRUBIN DIRECT (BEAKER) (test dnhs=189) 0.3 mg/dL 0.1-0.5 ALKALINE PHOSPHATASE (BEAKER) (test ngil=867) 46 U/L 40-150 AST (SGOT) (BEAKER) (test bohm=662) 26 U/L 5-34 ALT (SGPT) (BEAKER) (test hakp=727) 16 U/L 6-55 BASIC METABOLIC [id number] 04:56:00 Test Item Value Reference Range Comments SODIUM (BEAKER) (test 141 meq/L 136-145 ygiq=920) POTASSIUM (BEAKER) (test 4.5 meq/L 3.5-5.1 rwur=303) CHLORIDE (BEAKER) (test 106 meq/L 98-107 qqjb=898) CO2 (BEAKER) (test 26 meq/L 22-29 csfp=619) BLOOD UREA NITROGEN 14 mg/dL 7-21 (BEAKER) (test bcnm=378) CREATININE (BEAKER) (test 1.23 mg/dL 0.57-1.25 ocjx=009) GLUCOSE RANDOM (BEAKER) 92 mg/dL 70-105 (test vswu=284) CALCIUM (BEAKER) (test 9.3 mg/dL 8.4-10.2 wwsl=309) EGFR (BEAKER) (test 72 mL/min/1.73 sq m ESTIMATED GFR IS NOT soxi=3450) ACCURATE CREATININE CLEARANCE IN PREDICTING GLOMERULAR FILTRATION RATE. ESTIMATED GFR IS NOT APPLICABLE FOR DIALYSIS PATIENTS. CBC W/PLT COUNT & AUTO [id number] 04:46:00 Test Item Value Reference Range Comments WHITE BLOOD CELL COUNT (BEAKER) (test apbt=562) 6.5 K/ L 4.0-10.0 RED BLOOD CELL COUNT (BEAKER) (test rzds=216) 4.45 M/ L 4.20-5.80 HEMOGLOBIN (BEAKER) (test ctrc=511) 14.0 GM/DL 13.0-16.8 HEMATOCRIT (BEAKER) (test ovxc=216) 42.8 % 40.0-50.0 MEAN CORPUSCULAR VOLUME (BEAKER) (test fddg=822) 96.2 fL 82.0-98.0 MEAN CORPUSCULAR HEMOGLOBIN (BEAKER) (test 31.6 pg 27.0-33.0 tfet=712) MEAN CORPUSCULAR HEMOGLOBIN CONC (BEAKER) (test 32.8 GM/DL 32.0-36.0 urgh=245) RED CELL DISTRIBUTION WIDTH (BEAKER) (test 13.8 % 10.3-14.2 koio=668) PLATELET COUNT (BEAKER) (test ejok=181) 160 K/CU MM 150-430 MEAN PLATELET VOLUME (BEAKER) (test zylz=842) 9.3 fL 6.5-10.5 NUCLEATED RED BLOOD CELLS (BEAKER) (test 0 /100 WBC 0-0 eecg=947) NEUTROPHILS RELATIVE PERCENT (BEAKER) (test 54 % gaal=838) LYMPHOCYTES RELATIVE PERCENT (BEAKER) (test 32 % jhsu=717) MONOCYTES RELATIVE PERCENT (BEAKER) (test 12 % mrfy=584) EOSINOPHILS RELATIVE PERCENT (BEAKER) (test 2 % fqmg=810) BASOPHILS RELATIVE PERCENT (BEAKER) (test 1 % sujh=402) NEUTROPHILS ABSOLUTE COUNT (BEAKER) (test 3.51 K/ L 1.80-8.00 gfrv=786) LYMPHOCYTES ABSOLUTE COUNT (BEAKER) (test 2.05 K/ L 1.48-4.50 wfue=483) MONOCYTES ABSOLUTE COUNT (BEAKER) (test 0.78 K/ L 0.00-1.30 unrm=124) EOSINOPHILS ABSOLUTE COUNT (BEAKER) (test 0.10 K/ L 0.00-0.50 jcve=125) BASOPHILS ABSOLUTE COUNT (BEAKER) (test 0.06 K/ L 0.00-0.20 xxds=573) 0.00PT/[id number] 04:45:00 Test Item Value Reference Range Comments PROTIME (BEAKER) (test bhei=089) 14.5 seconds 11.7-14.7 INR (BEAKER) (test jpus=304) 1.1 <=5.9 PARTIAL THROMBOPLASTIN TIME (BEAKER) (test 27.7 seconds 22.5-36.0 xcxi=540) RECOMMENDED COUMADIN/WARFARIN INR THERAPY RANGESSTANDARD DOSE: 2.0 - 3.0 Includes: PROPHYLAXIS forvenous thrombosis, systemic embolization; TREATMENT for venous thrombosis and/or pulmonary embolus.HIGH RISK: Target INR is 2.5-3.5 for patients with mechanical heart valves.URINALYSIS W/ [id number] 04 :29:00 Test Item Value Reference Range Comments COLOR (BEAKER) (test ltte=608) Light Yellow CLARITY (BEAKER) (test xiyh=800) Clear SPECIFIC GRAVITY UA (BEAKER) (test budi=306) 1.007 1.001-1.035 PH UA (BEAKER) (test wqla=074) 6.0 5.0-8.0 PROTEIN UA (BEAKER) (test vqrh=183) Negative Negative GLUCOSE UA (BEAKER) (test xtue=451) Negative Negative KETONES UA (BEAKER) (test mhlh=319) Negative Negative BILIRUBIN UA (BEAKER) (test nwxm=093) Negative Negative BLOOD UA (BEAKER) (test giwx=974) Negative Negative NITRITE UA (BEAKER) (test ffzy=875) Negative Negative LEUKOCYTE ESTERASE UA (BEAKER) (test kdws=034) Negative Negative UROBILINOGEN UA (BEAKER) (test tkzw=608) 0.2 mg/dL 0.2-1.0 RBC UA (BEAKER) (test igwn=169) < /HPF WBC UA (BEAKER) (test naui=796) 1 /HPF SOURCE(BEAKER) (test jrow=6944) Urine, Voided
[2019-08-24 14:01] LABS: Absolute Lymphocytes (CBC) 0.7 K/uL (0.7-4.9); Basophils % 0.3 % (0-1.3); Hematocrit 38.3 % (39.6-49.0); Lymphocytes % 8.3 % (15.3-44.8); MPV 9.3 fL (7.6-11.3); RBC Red Blood Cell Count 4.15 M/uL (4.33-5.43)
[2019-08-24] MEDS ORDERED: IBUPROFEN 400 MG TAB ONE (14:07)
[2019-08-24 14:22] LABS: Urine White Blood Cell Casts OK
[2019-08-24 14:23] LABS: Blood Morphology Comment NOTED (NOT SEEN); Platelet Estimate ADEQ; Poikilocytosis 1+
[2019-08-24 14:40] LABS: Urine Blood TRACE (NEG); Urine Glucose NEGATIVE (NEG); Urine Protein NEGATIVE (NEG); Urine Specific Gravity 1.005 (1.005-1.030); Urine pH 5.5 (5.0-7.0)
[2019-08-24 14:53] LABS: Urine Bacteria <20 /HPF (NONE SEEN); Urine Culture Reflex Order NOT NEEDED; Urine RBC <5 /HPF (NONE SEEN)
[2019-08-24 15:11] LABS: ALT/SGPT 26 U/L (12-78); AST/SGOT 28 U/L (15-37); Albumin 3.8 g/dL (3.4-5.0); Alkaline Phosphatase 56 U/L (45-117); BUN Blood Urea Nitrogen 20 mg/dL (7-18); Bicarbonate 27 mmol/L (21-32); Bilirubin Direct < 0.1 mg/dL (0-0.2); Bilirubin Total 0.3 mg/dL (0.2-1.0); Glucose Level 110 mg/dL (74-106); Lipase 108 U/L (73-393); Potassium 4.1 mmol/L (3.5-5.1); Protein, Total 7.5 g/dL (6.4-8.2); Sodium Level 136 mmol/L (136-145)
[2019-08-24] MEDS ORDERED: ACETAMINOPHEN 500 MG TAB ONE (15:18)
--- NOTE | 2019-08-24 15:25 | RAD REPORT ---
EXAM DESCRIPTION: Carlos Lakhani And Ursula (2 Views)08/24/2019 2:17 pm CLINICAL HISTORY: Cough COMPARISON: 01/2019 FINDINGS: Small area of scarring left lung base. The lungs appear clear of acute infiltrate. The hea rt is normal size IMPRESSION: No acute abnormalities displayed
[2019-08-24] MEDS ORDERED: NA CHLORIDE 0.9% 500 ML ONE (15:36)
--- NOTE | 2019-08-24 16:06 | ER ---
Nurse's Notes [facility] Name: Blair Baca Age: 69 yrs Sex: Male : 1950 Arrival Date: 08/24/2019 Time: 13:09 Bed 26 Private MD: Diagnosis: Influenza due to identified novel influenza A virus Presentation: 08/24 13:18 Presenting complaint: Nonproductive cough, fever, chills, headaches, sore throat, body hb aches, and dizziness x 2 days. TMAX 102. Transition of care: patient was not received from another setting of care. Onset of symptoms was August 23, 2019. Risk Assessment: Do you want to hurt yourself or someone else? Patient reports no desire to harm self or others. Care prior to arrival: Tylenol at 0800, Robitussin DM at 1300. 13:18 Method Of Arrival: Ambulatory hb 13:18 Acuity: AMILCAR 3 hb 14:16 Initial Sepsis Screen: Does the patient meet any 2 criteria? No. Patient's initial mg2 sepsis screen is negative. Does the patient have a suspected source of infection? No. Patient's initial sepsis screen is negative. Historical: - Allergies: 13:21 No Known Allergies; hb - Home Meds: 13:21 hydrochlorothiazide 25 mg Oral tab 1 tab once daily [Active]; lisinopril 20 mg Oral tab hb 1 tab twice daily [Active]; pravastatin 20 mg oral tab 1 tab once daily [Active]; - PMHx: 13:21 chronic back pain; Hyperlipidemia; Hypertension; Renal CA; hb - PSHx: 13:21 Abdominal surgery; Nephrectomy - Left; hb - Immunization history:: Adult Immunizations up to date. - Social history:: Smoking status: Patient/guardian denies using tobacco. - Ebola Screening: : No symptoms or risks identified at this time. Screenin:15 Abuse screen: Denies threats or abuse. Denies injuries from another. Nutritional mg2 screening: No deficits noted. Tuberculosis screening: No symptoms or risk factors identified. Fall Risk IV access (20 points). Assessment: 14:01 General: Appears in no apparent distress. comfortable, Behavior is calm, cooperative. mg2 Pain: Complains of pain in throat and RLQ Pain does not radiate. Pain currently is 3 out of 10 on a pain scale. Quality of pain is described as aching, Pain began gradually, Is intermittent. Neuro: Level of Consciousness is awake, alert, obeys commands, Oriented to person, place, time, situation. Cardiovascular: Capillary refill < 3 seconds Patient's skin is warm and dry. Respiratory: Airway is patent Respiratory effort is even, unlabored, Respiratory pattern is regular, symmetrical. GI: No signs and/or symptoms were reported involving the gastrointestinal system. : Reports pain in right lower quadrant(s). EENT: Reports sore throat. Derm: Skin is intact, is healthy with good turgor, Skin is pink, warm \T\ dry. normal. Musculoskeletal: Circulation, motion, and sensation intact. Capillary refill < 3 seconds. 16:21 Reassessment: patient up for d/c once ivf is completed. mg2 Vital Signs: 13:17 BP 145 / 83; Pulse 106; Resp 20; Temp 102.9; Pulse Ox 96% ; Weight 108.86 kg; Height 6 hb ft. 5 in. (195.58 cm); Pain 10/10; 14:20 BP 140 / 82; Pulse 101; Resp 18; Pulse Ox 98% on R/A; mg2 14:56 Temp 102.6(O); jp3 15:19 BP 103 / 75; Pulse 83; Resp 18; Pulse Ox 98% on R/A; mg2 16:22 BP 131 / 84; Pulse 81; Resp 18; Temp 99.9(O); Pulse Ox 98% on R/A; mg2 13:17 Body Mass Index 28.46 (108.86 kg, 195.58 cm) hb ED Course: 13:09 Patient arrived in ED. as 13:19 Triage completed. hb 13:21 Arm band placed on. hb 13:23 Reta Izquierdo FNP is PHCP. nh 13:23 Jimmy Tai MD is Attending Physician. nh 13:33 Cb Quiroga, MILENA is Primary Nurse. mg2 13:35 Radiology exam delayed due to lab results not completed at this time. (BUN/Creatinine). vm2 14:15 No provider procedures requiring assistance completed. Inserted saline lock: 20 gauge mg2 in right antecubital area, using aseptic technique. Blood collected. 14:16 Patient has correct armband on for positive identification. Door closed. mg2 14:17 Chest Pa And Lat (2 Views) XRAY In Process Unspecified. EDMS 14:40 Lab(s) recollected, by me, sent to lab. jp3 14:51 Basic Metabolic Panel Sent. jp3 14:51 Hepatic Function Sent. jp3 14:51 Lipase Sent. jp3 14:54 Throat Culture Sent. jp3 16:40 IV discontinued, intact, bleeding controlled, No redness/swelling at site. Pressure mg2 dressing applied. Administered Medications: 14:17 Not Given (Physician Discretion): Tylenol 1000 mg PO once mg2 14:18 Drug: Motrin 800 mg Route: PO; mg2 15:13 Follow up: Response: No adverse reaction mg2 15:19 Drug: Tylenol 1000 mg Route: PO; mg2 16:00 Follow up: Response: No adverse reaction; Temperature is decreased mg2 15:33 Drug: NS 0.9% 500 ml Route: IV; Rate: bolus; Site: right antecubital; mg2 16:40 Follow up: Response: No adverse reaction; IV Status: Completed infusion; IV Intake: mg2 500ml Intake: 16:40 IV: 500ml; Total: 500ml. mg2 Outcome: 16:05 Discharge ordered by . nm 16:40 Discharged to home ambulatory. mg2 16:40 Condition: stable 16:40 Instructed on discharge instructions, follow up and referral plans. medication usage, Demonstrated understanding of instructions, follow-up care, medications. 16:40 Discharge instructions given to patient. 16:41 Patient left the ED. mg2 Signatures: Dispatcher [employer] EDCT Reta Izquierdo, FITTER TYPE BAR AND SEGMENT FITTER TYPE BAR AND SEGMENT nm Alyssa Brennan Heather, RN RN Roselia Simmons 2 Cb Quiroga RN RN [facility] Ayush Villaseñor jp3
--- NOTE | 2019-08-24 16:06 | EDPHYS ---
Physician Documentation [facility] Name: Blair Baca Age: 69 yrs Sex: Male : 1950 Arrival Date: 08/24/2019 Time: 13:09 Bed 26 Private MD: ED Physician Jimmy Tai HPI: 08/24 15:08 This 69 yrs old Black Male presents to ER via Ambulatory with complaints of Fever. nh 15:08 The patient reports fever, not measured (subjective). Onset: The symptoms/episode nh began/occurred this morning. Modifying factors: there are no obvious modifying factors. Associated signs and symptoms: Pertinent positives: headache, Pertinent negatives: abdominal pain, altered mental status, arthralgias, backache, chest pain, chills, pulling at ears, headache, hemoptysis, myalgias, nausea, night sweats, runny nose, sinus congestion, sinus drainage, skin rash, shortness of breath, sore throat. Severity of symptoms: At their worst the symptoms were moderate just prior to arrival, in the emergency department the symptoms are unchanged. The patient has not experienced similar symptoms in the past. The patient has not recently seen a physician. Guillermo was seen about a week ago by dr goodwin and dx with UTI. Patient took abx and has not followed up.. Historical: - Allergies: 13:21 No Known Allergies; hb - Home Meds: 13:21 hydrochlorothiazide 25 mg Oral tab 1 tab once daily [Active]; lisinopril 20 mg Oral tab hb 1 tab twice daily [Active]; pravastatin 20 mg oral tab 1 tab once daily [Active]; - PMHx: 13:21 chronic back pain; Hyperlipidemia; Hypertension; Renal CA; hb - PSHx: 13:21 Abdominal surgery; Nephrectomy - Left; hb - Immunization history:: Adult Immunizations up to date. - Social history:: Smoking status: Patient/guardian denies using tobacco. - Ebola Screening: : No symptoms or risks identified at this time. ROS: 15:08 Eyes: Negative for injury, pain, redness, and discharge, ENT: Negative for injury, nh pain, and discharge, Neck: Negative for injury, pain, and swelling, Cardiovascular: Negative for chest pain, palpitations, and edema, Abdomen/GI: Negative for abdominal pain, nausea, vomiting, diarrhea, and constipation, Back: Negative for injury and pain, : Negative for injury, bleeding, discharge, and swelling, MS/Extremity: Negative for injury and deformity, Skin: Negative for injury, rash, and discoloration, Neuro: Negative for headache, weakness, numbness, tingling, and seizure. 15:08 Constitutional: Positive for fever. 15:08 Respiratory: Positive for cough. Exam: 15:08 Constitutional: This is a well developed, well nourished patient who is awake, alert, nh and in no acute distress. Head/Face: Normocephalic, atraumatic. Eyes: Pupils equal round and reactive to light, extra-ocular motions intact. Lids and lashes normal. Conjunctiva and sclera are non-icteric and not injected. Cornea within normal limits. Periorbital areas with no swelling, redness, or edema. ENT: Nares patent. No nasal discharge, no septal abnormalities noted. Tympanic membranes are normal and external auditory canals are clear. Oropharynx with no redness, swelling, or masses, exudates, or evidence of obstruction, uvula midline. Mucous membranes moist. Neck: Trachea midline, no thyromegaly or masses palpated, and no cervical lymphadenopathy. Supple, full range of motion without nuchal rigidity, or vertebral point tenderness. No Meningismus. Chest/axilla: Normal chest wall appearance and motion. Nontender with no deformity. No lesions are appreciated. Cardiovascular: Regular rate and rhythm with a normal S1 and S2. No gallops, murmurs, or rubs. Normal PMI, no JVD. No pulse deficits. Respiratory: Lungs have equal breath sounds bilaterally, clear to auscultation and percussion. No rales, rhonchi or wheezes noted. No increased work of breathing, no retractions or nasal flaring. Abdomen/GI: Soft, non-tender, with normal bowel sounds. No distension or tympany. No guarding or rebound. No evidence of tenderness throughout. Back: No spinal tenderness. No costovertebral tenderness. Full range of motion. Skin: Warm, dry with normal turgor. Normal color with no rashes, no lesions, and no evidence of cellulitis. MS/ Extremity: Pulses equal, no cyanosis. Neurovascular intact. Full, normal range of motion. Vital Signs: 13:17 BP 145 / 83; Pulse 106; Resp 20; Temp 102.9; Pulse Ox 96% ; Weight 108.86 kg; Height 6 hb ft. 5 in. (195.58 cm); Pain 10/10; 14:20 BP 140 / 82; Pulse 101; Resp 18; Pulse Ox 98% on R/A; mg2 14:56 Temp 102.6(O); jp3 15:19 BP 103 / 75; Pulse 83; Resp 18; Pulse Ox 98% on R/A; mg2 16:22 BP 131 / 84; Pulse 81; Resp 18; Temp 99.9(O); Pulse Ox 98% on R/A; mg2 13:17 Body Mass Index 28.46 (108.86 kg, 195.58 cm) hb MDM: 13:23 Patient medically screened. nh 16:04 Data reviewed: vital signs, nurses notes, lab test result(s), EKG, I have discussed the dc patient's presentation/case with the attending Emergency Department Physician; and as a result, I will discharge patient. Counseling: I had a detailed discussion with the patient and/or guardian regarding: the historical points, exam findings, and any diagnostic results supporting the discharge/admit diagnosis, lab results, radiology results, the need for outpatient follow up, to return to the emergency department if symptoms worsen or persist or if there are any questions or concerns that arise at home. 08/24 13:33 Order name: Flu; Complete Time: 14:29 dc 08/24 13:33 Order name: Basic Metabolic Panel; Complete Time: 15:26 dc 08/24 13:33 Order name: CBC with Diff; Complete Time: 14:29 dc 08/24 13:33 Order name: Creatinine for Radiology; Complete Time: 14:46 dc 08/24 13:33 Order name: Hepatic Function; Complete Time: 15:26 dc 08/24 13:33 Order name: Lipase; Complete Time: 15:26 dc 08/24 13:33 Order name: Chest Pa And Lat (2 Views) XRAY; Complete Time: 15:26 dc 08/24 13:45 Order name: Strep; Complete Time: 14:29 [facility] 08/24 14:17 Order name: Urine Microscopic Only; Complete Time: 15:06 [facility] 08/24 14:17 Order name: Urine Culture [facility] 08/24 14:19 Order name: Urine Dipstick--Ancillary (enter results); Complete Time: 14:46 eb 08/24 14:23 Order name: Throat Culture [facility] 08/24 14:23 Order name: CBC Smear Scan; Complete Time: 14:29 [facility] 08/24 13:33 Order name: IV Saline Lock; Complete Time: 13:46 dc 08/24 13:33 Order name: Labs collected and sent; Complete Time: 13:46 dc 08/24 14:06 Order name: Urine Dipstick-Ancillary (obtain specimen); Complete Time: 14:16 dc 08/24 14:35 Order name: Labs - recollect needed: green tube recollect - chemistries; Complete Time: eb 14:39 Administered Medications: 14:17 Not Given (Physician Discretion): Tylenol 1000 mg PO once mg2 14:18 Drug: Motrin 800 mg Route: PO; mg2 15:13 Follow up: Response: No adverse reaction mg2 15:19 Drug: Tylenol 1000 mg Route: PO; mg2 16:00 Follow up: Response: No adverse reaction; Temperature is decreased mg2 15:33 Drug: NS 0.9% 500 ml Route: IV; Rate: bolus; Site: right antecubital; mg2 16:40 Follow up: Response: No adverse reaction; IV Status: Completed infusion; IV Intake: mg2 500ml Disposition: 16:59 Co-signature as Attending Physician, Jimmy Tai MD. rn Disposition: 08/24/19 16:05 Discharged to Home. Impression: Influenza due to identified novel influenza A virus. - Condition is Stable. - Discharge Instructions: Influenza, Adult. - Prescriptions for Tamiflu 75 mg Oral Capsule - take 1 capsule by ORAL route every 12 hours for 5 days; 10 capsule. - Medication Reconciliation Form, Thank You Letter, Antibiotic Education, Prescription Opioid Use form. - Follow up: Private Physician; When: 2 - 3 days; Reason: Recheck today's complaints. - Problem is new. - Symptoms are unchanged. Signatures: Dispatcher [employer] EDNY Reta Izquierdo, SECTION HOUSEKEEPER SECTION HOUSEKEEPER dc Jimmy Tai MD MD rn Baxter, Heather, RN RN hb Botello, Elizabeth eb Gardose, Michele, RN RN mg2 Corrections: (The following items were deleted from the chart) 14:39 13:34 Abdomen Pelvis W Con+CT.RAD.BRZ ordered. [facility] EDNY 16:41 16:05 08/24/2019 16:05 Discharged to Home. Impression: Influenza due to identified mg2 novel influenza A virus. Condition is Stable. Forms are Medication Reconciliation Form, Thank You Letter, Antibiotic Education, Prescription Opioid Use. Follow up: Private Physician; When: 2 - 3 days; Reason: Recheck today's complaints. Problem is new. Symptoms are unchanged. nh
[2019-08-24 18:18] VITALS: O2SAT 98
[2019-08-24 18:22] VITALS: BP 131/84; TEMP 99.9
== END 2019-08-24 16:41 | disposition home or self-care (01) ==
LOC: ER 13:07
DX: J10.1 Influenza due to other identified influenza virus with other respiratory manifestations (principal); I10 Essential (primary) hypertension; E78.5 Hyperlipidemia, unspecified; Z85.53 Personal history of malignant neoplasm of renal pelvis
CPT/HCPCS: 87070; 87088; 85025; 87086; 80048; 36415; 80076; 87081; 83690; 87804 ×2; 71046; 96360; 99284; J7040; 81003; 81015

== ENCOUNTER 2019-11-09 10:08 | Emergency (ER) | payer MEDICARE, OTHER ==
--- OUTSIDE RECORDS SUMMARY | 2019-11-09 10:11 | XMS REPORT ---
:[address] [facility] Address [address] [place] [address] Care Team Providers Name Role Phone JEROME DAO Unavailable Unavailable Problems This patient has no known problems. Allergies, Adverse Reactions, Alerts This patient has no known allergies or adverse reactions. Medications This patient has no known medications. Results Test Description Test Time Test Comments Text Results Atomic Results Result Comments TISSUE 2017-01-17 Surgical Pathology Report Case: [id number] EXAM 15:47:00 Irineo rodney Provider: Jerome Dao MD Ordering Provider: Jerome Dao MD Ordering Location: [address] Collected: 01/10/2017 1543 Service Pathologist: Saumya [...] SYNOPTIC REPORT Signing Pathologist Direct Phone Line: [phone] tumor cells stain positive for PAX-8, AMACR, [...] Involved: Specify: 0 Distant Metastasis (pM): Not [id number]; [id number]; [id number] X 3Left renal massLeft kidney, spleen, tail [...] margins; A2, parallel pancreatic resection margin; A3-A4, claims service representative sections of mass with adherent spleen; A5-A8, claims service representative sections of mass with adherent pancreas; A9-A14, claims service representative sections of mass with renal parenchyma; A15-A24, additional claims service representative sections of mass; A25-A26, claims service representative sections of pancreas; A27-A28, claims service representative sections of adrenal gland; A29-A30, claims service representative sections of spleen; A31, accessory spleen; A32, claims service representative section of uninvolved kidney with pelvis and caliceal system; A33, claims service representative section of uninvolved kidney; A34, renal [...] developed and its performance characteristics determined by [facility], Pathology Laboratory. It has not been cleared [...] Value Reference Range Comments CULTURE (BEAKER) (test xxul=3255) No anaerobes isolated HEMOGLOBIN AND [id number] 14:55:00 Test Item Value Reference Range Comments HEMOGLOBIN (BEAKER) (test olnp=266) 11.9 GM/DL 13.0-16.8 HEMATOCRIT (BEAKER) (test vslj=733) 35.7 % 40.0-50.0 CBC (HEMOGRAM ONLY)2017-01-14 10:41:00 Test Item Value Reference Range Comments WHITE BLOOD CELL COUNT (BEAKER) (test kbvs=635) 6.9 K/ L 4.0-10.0 RED BLOOD CELL COUNT (BEAKER) (test hqiv=792) 2.66 M/ L 4.20-5.80 HEMOGLOBIN (BEAKER) (test jcwz=970) 8.7 GM/DL 13.0-16.8 HEMATOCRIT (BEAKER) (test tnxu=589) 28.4 % 40.0-50.0 MEAN CORPUSCULAR VOLUME (BEAKER) (test hpwo=324) 107.0 fL 82.0-98.0 MEAN CORPUSCULAR HEMOGLOBIN (BEAKER) (test 32.6 pg 27.0-33.0 fsek=349) MEAN CORPUSCULAR HEMOGLOBIN CONC (BEAKER) (test 30.5 GM/DL 32.0-36.0 prik=764) RED CELL DISTRIBUTION WIDTH (BEAKER) (test 13.4 % 10.3-14.2 wzdw=202) PLATELET COUNT (BEAKER) (test mcwe=717) 199 K/CU MM 150-430 MEAN PLATELET VOLUME (BEAKER) (test fvoe=662) 8.6 fL 6.5-10.5 NUCLEATED RED BLOOD CELLS (BEAKER) (test 0 /100 WBC 0-0 nhvw=444) 0.00SURGICALLY OBTAINED CULTURE + GRAM [id number] 23:39:00 Test Item Value Reference Range Comments CULTURE (BEAKER) (test mkwy=6129) No growth GRAM STAIN RESULT (BEAKER) (test 3+ WBCs bqbs=4698) GRAM STAIN RESULT (BEAKER) (test No organisms seen pycc=36607) AMYLASE, BODY [id number] 04:49:00 Test Item Value Reference Range Comments AMYLASE FLUID (BEAKER) (test ksjb=613) 158 U/L Absence of reference range indicates that normals have not been defined.Assay performance has not been validated for this type of specimen.AMYLASE, BODY [id number] 09:38:00 Test Item Value Reference Range Comments AMYLASE FLUID (BEAKER) (test zzya=919) 1456 U/L Absence of reference range indicates that normals have not been defined.Assay performance has not been validated for this type of specimen.[id number] 06:54:00 Test Item Value Reference Range Comments POTASSIUM (BEAKER) (test 3.8 meq/L 3.5-5.1 Specimen slightly hemolyzed hlpr=308) BASIC METABOLIC [id number] 06:54:00 Test Item Value Reference Range Comments SODIUM (BEAKER) (test 138 meq/L 136-145 ygms=424) POTASSIUM (BEAKER) (test 3.8 meq/L 3.5-5.1 Specimen slightly tyvw=462) hemolyzed CHLORIDE (BEAKER) (test 104 meq/L 98-107 htlu=908) CO2 (BEAKER) (test 26 meq/L 22-29 foaj=659) BLOOD UREA NITROGEN 10 mg/dL 7-21 (BEAKER) (test liav=452) CREATININE (BEAKER) (test 1.28 mg/dL 0.57-1.25 Specimen slightly yadi=714) hemolyzed GLUCOSE RANDOM (BEAKER) 137 mg/dL 70-105 (test qioe=421) CALCIUM (BEAKER) (test 8.5 mg/dL 8.4-10.2 xgvt=068) EGFR (BEAKER) (test 69 mL/min/1.73 sq m ESTIMATED GFR IS NOT qitb=3105) ACCURATE CREATININE CLEARANCE IN PREDICTING GLOMERULAR FILTRATION RATE. ESTIMATED GFR IS NOT APPLICABLE FOR DIALYSIS PATIENTS. HEMOGLOBIN AND [id number] 06:53:00 Test Item Value Reference Range Comments HEMOGLOBIN (BEAKER) (test obho=169) 12.1 GM/DL 13.0-16.8 HEMATOCRIT (BEAKER) (test gjbt=261) 37.8 % 40.0-50.0 [id number] 14:34:00Medical Cytology Report Case: [id number] Authorizing Provider: Jerome Dao MD Ordering Provider: Jerome Dao MD OrderingLocation: [address] Collected: 1147 Service Pathologist: Catrachito Hernandez, Received: 01/10/2017 1543 Specimen: Kidney, Left LEFT RENAL MASS ASPIRATE ( CYTOSPINS AND CELL BLOCK): - NEGATIVE FOR MALIGNANT CELLS Signing Pathologist Direct Phone Line: [phone] cytospins and radha block show mostly old blood elements with no viable epithelial cells present.65519, 2235755 cm left renal mass, flank painLEFT RENAL MASS ASPIRATE (CYTOSPINS AND CELL BLOCK)22 mls bloody; 4 cytospins, cell blockCollected: [id number]: [id number] [facility], Department of Pathology, [address] [place] [address], [facility]pm[facility], [facility] of Pathology, [address] [place] [address] , [id number] [id number] 12:12:00 Test Item Value Reference Range Comments CULTURE (BEAKER) (test 10-19,000 col/mL skin lux fsyi=4695) AMYLASE, BODY [id number] 07:22:00 Test Item Value Reference Range Comments AMYLASE FLUID (BEAKER) (test bphm=972) 6125 U/L Absence of reference range indicates that normals have not been defined.Assay performance has not been validated for this type of specimen.CBC W/PLT COUNT & amp; AUTO [id number] 06:40:00 Test Item Value Reference Range Comments WHITE BLOOD CELL COUNT (BEAKER) (test nyqs=683) 11.9 K/ L 4.0-10.0 RED BLOOD CELL COUNT (BEAKER) (test udkq=175) 4.15 M/ L 4.20-5.80 HEMOGLOBIN (BEAKER) (test siki=672) 12.9 GM/DL 13.0-16.8 HEMATOCRIT (BEAKER) (test zxed=460) 40.0 % 40.0-50.0 MEAN CORPUSCULAR VOLUME (BEAKER) (test splq=546) 96.4 fL 82.0-98.0 MEAN CORPUSCULAR HEMOGLOBIN (BEAKER) (test 31.2 pg 27.0-33.0 vwwz=635) MEAN CORPUSCULAR HEMOGLOBIN CONC (BEAKER) (test 32.3 GM/DL 32.0-36.0 apfq=501) RED CELL DISTRIBUTION WIDTH (BEAKER) (test 13.9 % 10.3-14.2 mlrr=931) PLATELET COUNT (BEAKER) (test xepm=769) 183 K/CU MM 150-430 MEAN PLATELET VOLUME (BEAKER) (test xcvk=003) 9.1 fL 6.5-10.5 NUCLEATED RED BLOOD CELLS (BEAKER) (test 0 /100 WBC 0-0 pkyl=470) NEUTROPHILS RELATIVE PERCENT (BEAKER) (test 76 % fvoz=209) LYMPHOCYTES RELATIVE PERCENT (BEAKER) (test 11 % kzav=827) MONOCYTES RELATIVE PERCENT (BEAKER) (test 13 % dsql=572) EOSINOPHILS RELATIVE PERCENT (BEAKER) (test 0 % zbgo=937) BASOPHILS RELATIVE PERCENT (BEAKER) (test 0 % wsah=129) NEUTROPHILS ABSOLUTE COUNT (BEAKER) (test 9.04 K/ L 1.80-8.00 pown=429) LYMPHOCYTES ABSOLUTE COUNT (BEAKER) (test 1.28 K/ L 1.48-4.50 bhjs=780) MONOCYTES ABSOLUTE COUNT (BEAKER) (test 1.53 K/ L 0.00-1.30 loou=234) EOSINOPHILS ABSOLUTE COUNT (BEAKER) (test 0.02 K/ L 0.00-0.50 laki=978) BASOPHILS ABSOLUTE COUNT (BEAKER) (test 0.01 K/ L 0.00-0.20 bdhq=543) 0.00BASI METABOLIC [id number] 05:56:00 Test Item Value Reference Range Comments SODIUM (BEAKER) (test 136 meq/L 136-145 indg=081) POTASSIUM (BEAKER) (test 5.2 meq/L 3.5-5.1 Specimen slightly slio=527) hemolyzed CHLORIDE (BEAKER) (test 105 meq/L 98-107 atdk=502) CO2 (BEAKER) (test 23 meq/L 22-29 jlnh=866) BLOOD UREA NITROGEN 11 mg/dL 7-21 (BEAKER) (test cslk=694) CREATININE (BEAKER) (test 1.46 mg/dL 0.57-1.25 Specimen slightly epvy=139) hemolyzed GLUCOSE RANDOM (BEAKER) 302 mg/dL 70-105 (test lugp=586) CALCIUM (BEAKER) (test 8.1 mg/dL 8.4-10.2 minb=555) EGFR (BEAKER) (test 59 mL/min/1.73 sq m ESTIMATED GFR IS NOT hbah=4372) ACCURATE CREATININE CLEARANCE IN PREDICTING GLOMERULAR FILTRATION RATE. ESTIMATED GFR IS NOT APPLICABLE FOR DIALYSIS PATIENTS. BASIC METABOLIC [id number] 17:46:00 Test Item Value Reference Range Comments SODIUM (BEAKER) (test 139 meq/L 136-145 rmbx=509) POTASSIUM (BEAKER) (test 4.1 meq/L 3.5-5.1 etaa=517) CHLORIDE (BEAKER) (test 107 meq/L 98-107 ecno=408) CO2 (BEAKER) (test 20 meq/L 22-29 nbio=464) BLOOD UREA NITROGEN 10 mg/dL 7-21 (BEAKER) (test tcap=006) CREATININE (BEAKER) (test 1.44 mg/dL 0.57-1.25 dgjo=606) GLUCOSE RANDOM (BEAKER) 176 mg/dL 70-105 (test glga=385) CALCIUM (BEAKER) (test 8.2 mg/dL 8.4-10.2 skfp=819) EGFR (BEAKER) (test 60 mL/min/1.73 sq m ESTIMATED GFR IS NOT genz=6314) ACCURATE CREATININE CLEARANCE IN PREDICTING GLOMERULAR FILTRATION RATE. ESTIMATED GFR IS NOT APPLICABLE FOR DIALYSIS PATIENTS. CBC W/PLT COUNT & AUTO [id number] 17:28:00 Test Item Value Reference Range Comments WHITE BLOOD CELL COUNT (BEAKER) (test umsm=850) 13.5 K/ L 4.0-10.0 RED BLOOD CELL COUNT (BEAKER) (test gaac=871) 4.20 M/ L 4.20-5.80 HEMOGLOBIN (BEAKER) (test vhiz=329) 13.1 GM/DL 13.0-16.8 HEMATOCRIT (BEAKER) (test lbjh=889) 39.9 % 40.0-50.0 MEAN CORPUSCULAR VOLUME (BEAKER) (test lgdn=387) 94.9 fL 82.0-98.0 MEAN CORPUSCULAR HEMOGLOBIN (BEAKER) (test 31.1 pg 27.0-33.0 qcpx=099) MEAN CORPUSCULAR HEMOGLOBIN CONC (BEAKER) (test 32.8 GM/DL 32.0-36.0 yttf=198) RED CELL DISTRIBUTION WIDTH (BEAKER) (test 12.6 % 10.3-14.2 exun=097) PLATELET COUNT (BEAKER) (test eusr=231) 180 K/CU MM 150-430 MEAN PLATELET VOLUME (BEAKER) (test gfsu=575) 9.1 fL 6.5-10.5 NUCLEATED RED BLOOD CELLS (BEAKER) (test 0 /100 WBC 0-0 iteo=713) NEUTROPHILS RELATIVE PERCENT (BEAKER) (test 89 % cfqk=585) LYMPHOCYTES RELATIVE PERCENT (BEAKER) (test 6 % ddxn=662) MONOCYTES RELATIVE PERCENT (BEAKER) (test 5 % zxtc=921) EOSINOPHILS RELATIVE PERCENT (BEAKER) (test 0 % hjfh=060) BASOPHILS RELATIVE PERCENT (BEAKER) (test 0 % kreo=833) NEUTROPHILS ABSOLUTE COUNT (BEAKER) (test 12.00 K/ L 1.80-8.00 ddlh=843) LYMPHOCYTES ABSOLUTE COUNT (BEAKER) (test 0.80 K/ L 1.48-4.50 htmb=645) MONOCYTES ABSOLUTE COUNT (BEAKER) (test 0.68 K/ L 0.00-1.30 gkll=702) EOSINOPHILS ABSOLUTE COUNT (BEAKER) (test 0.01 K/ L 0.00-0.50 zwts=044) BASOPHILS ABSOLUTE COUNT (BEAKER) (test 0.04 K/ L 0.00-0.20 guvp=709) 0.00POCT-GLUCOSE [id number] 08:00:00 Test Item Value Reference Range Comments POC-GLUCOSE METER (BEAKER) 109 mg/dL 70-110 TESTED AT [facility] [address] (test cqqn=2167) [place] [address] HEPATIC FUNCTION [id number] 04:56:00 Test Item Value Reference Range Comments TOTAL PROTEIN (BEAKER) (test yjpw=506) 7.3 gm/dL 6.0-8.3 ALBUMIN (BEAKER) (test cnup=2450) 4.0 g/dL 3.5-5.0 BILIRUBIN TOTAL (BEAKER) (test psim=288) 0.7 mg/dL 0.2-1.2 BILIRUBIN DIRECT (BEAKER) (test lwvv=180) 0.3 mg/dL 0.1-0.5 ALKALINE PHOSPHATASE (BEAKER) (test foiq=716) 46 U/L 40-150 AST (SGOT) (BEAKER) (test kxpq=270) 26 U/L 5-34 ALT (SGPT) (BEAKER) (test xlss=272) 16 U/L 6-55 BASIC METABOLIC [id number] 04:56:00 Test Item Value Reference Range Comments SODIUM (BEAKER) (test 141 meq/L 136-145 jrog=294) POTASSIUM (BEAKER) (test 4.5 meq/L 3.5-5.1 ozrn=311) CHLORIDE (BEAKER) (test 106 meq/L 98-107 wzzc=808) CO2 (BEAKER) (test 26 meq/L 22-29 xrzh=203) BLOOD UREA NITROGEN 14 mg/dL 7-21 (BEAKER) (test ywgh=438) CREATININE (BEAKER) (test 1.23 mg/dL 0.57-1.25 dqdf=460) GLUCOSE RANDOM (BEAKER) 92 mg/dL 70-105 (test xocy=569) CALCIUM (BEAKER) (test 9.3 mg/dL 8.4-10.2 gmdo=786) EGFR (BEAKER) (test 72 mL/min/1.73 sq m ESTIMATED GFR IS NOT pfcv=1431) ACCURATE CREATININE CLEARANCE IN PREDICTING GLOMERULAR FILTRATION RATE. ESTIMATED GFR IS NOT APPLICABLE FOR DIALYSIS PATIENTS. CBC W/PLT COUNT & AUTO [id number] 04:46:00 Test Item Value Reference Range Comments WHITE BLOOD CELL COUNT (BEAKER) (test khpz=166) 6.5 K/ L 4.0-10.0 RED BLOOD CELL COUNT (BEAKER) (test sfde=812) 4.45 M/ L 4.20-5.80 HEMOGLOBIN (BEAKER) (test vspm=179) 14.0 GM/DL 13.0-16.8 HEMATOCRIT (BEAKER) (test soij=436) 42.8 % 40.0-50.0 MEAN CORPUSCULAR VOLUME (BEAKER) (test owib=947) 96.2 fL 82.0-98.0 MEAN CORPUSCULAR HEMOGLOBIN (BEAKER) (test 31.6 pg 27.0-33.0 nkiu=818) MEAN CORPUSCULAR HEMOGLOBIN CONC (BEAKER) (test 32.8 GM/DL 32.0-36.0 bwul=928) RED CELL DISTRIBUTION WIDTH (BEAKER) (test 13.8 % 10.3-14.2 umkb=411) PLATELET COUNT (BEAKER) (test ogfl=773) 160 K/CU MM 150-430 MEAN PLATELET VOLUME (BEAKER) (test jibb=759) 9.3 fL 6.5-10.5 NUCLEATED RED BLOOD CELLS (BEAKER) (test 0 /100 WBC 0-0 ifkg=000) NEUTROPHILS RELATIVE PERCENT (BEAKER) (test 54 % uhyc=289) LYMPHOCYTES RELATIVE PERCENT (BEAKER) (test 32 % ienh=619) MONOCYTES RELATIVE PERCENT (BEAKER) (test 12 % vsmt=361) EOSINOPHILS RELATIVE PERCENT (BEAKER) (test 2 % uvuz=150) BASOPHILS RELATIVE PERCENT (BEAKER) (test 1 % hrir=730) NEUTROPHILS ABSOLUTE COUNT (BEAKER) (test 3.51 K/ L 1.80-8.00 uirs=601) LYMPHOCYTES ABSOLUTE COUNT (BEAKER) (test 2.05 K/ L 1.48-4.50 zphm=761) MONOCYTES ABSOLUTE COUNT (BEAKER) (test 0.78 K/ L 0.00-1.30 tdhf=592) EOSINOPHILS ABSOLUTE COUNT (BEAKER) (test 0.10 K/ L 0.00-0.50 mekj=016) BASOPHILS ABSOLUTE COUNT (BEAKER) (test 0.06 K/ L 0.00-0.20 bcvz=247) 0.00PT/[id number] 04:45:00 Test Item Value Reference Range Comments PROTIME (BEAKER) (test azws=413) 14.5 seconds 11.7-14.7 INR (BEAKER) (test eulz=464) 1.1 <=5.9 PARTIAL THROMBOPLASTIN TIME (BEAKER) (test 27.7 seconds 22.5-36.0 pkld=569) RECOMMENDED COUMADIN/WARFARIN INR THERAPY RANGESSTANDARD DOSE: 2.0 - 3.0 Includes: PROPHYLAXIS forvenous thrombosis, systemic embolization; TREATMENT for venous thrombosis and/or pulmonary embolus.HIGH RISK: Target INR is 2.5-3.5 for patients with mechanical heart valves.URINALYSIS W/ [id number] 04 :29:00 Test Item Value Reference Range Comments COLOR (BEAKER) (test kyof=966) Light Yellow CLARITY (BEAKER) (test vvoy=017) Clear SPECIFIC GRAVITY UA (BEAKER) (test lerw=145) 1.007 1.001-1.035 PH UA (BEAKER) (test sbea=192) 6.0 5.0-8.0 PROTEIN UA (BEAKER) (test nicm=902) Negative Negative GLUCOSE UA (BEAKER) (test ujaz=510) Negative Negative KETONES UA (BEAKER) (test mcub=844) Negative Negative BILIRUBIN UA (BEAKER) (test jeju=003) Negative Negative BLOOD UA (BEAKER) (test bzgh=144) Negative Negative NITRITE UA (BEAKER) (test jyhz=032) Negative Negative LEUKOCYTE ESTERASE UA (BEAKER) (test ixoq=119) Negative Negative UROBILINOGEN UA (BEAKER) (test vtyc=266) 0.2 mg/dL 0.2-1.0 RBC UA (BEAKER) (test goet=782) < /HPF WBC UA (BEAKER) (test cjar=692) 1 /HPF SOURCE(BEAKER) (test kjwz=0230) Urine, Voided
--- NOTE | 2019-11-09 11:02 | ER ---
Nurse's Notes [facility] Name: Blair Baca Age: 69 yrs Sex: Male : 1950 Arrival Date: 11/09/2019 Time: 10:11 Bed 6 Private MD: Bernard Chaney E Diagnosis: Dental caries;Dental root caries Presentation: 11/09 10:27 Presenting complaint: Patient states: dental pain since last night. Denies fever. Pt ss reports he took one of his 's Tylenol #3 tablets, but it isn't helping. Transition of care: patient was not received from another setting of care. Onset of symptoms was November 08, 2019. Risk Assessment: Do you want to hurt yourself or someone else? Patient reports no desire to harm self or others. Initial Sepsis Screen: Does the patient meet any 2 criteria? No. Patient's initial sepsis screen is negative. Does the patient have a suspected source of infection? No. Patient's initial sepsis screen is negative. Care prior to arrival: None. 10:27 Method Of Arrival: Ambulatory ss 10:27 Acuity: AMILCAR 5 ss Historical: - Allergies: 10:28 No Known Allergies; ss - Home Meds: 10:28 hydrochlorothiazide 25 mg Oral tab 1 tab once daily [Active]; lisinopril 20 mg Oral tab ss 1 tab twice daily [Active]; pravastatin 20 mg Oral tab 1 tab once daily [Active]; - PMHx: 10:28 chronic back pain; Hyperlipidemia; Hypertension; Renal CA; ss - PSHx: 10:28 mass removed from abd; ss - Immunization history:: Adult Immunizations unknown. - Coronavirus screen:: The patient has NOT traveled to [place] in the past 14 days. Proceed with normal triage process as indicated. - Social history:: Smoking status: Patient denies any tobacco usage or history of. - Ebola Screening: : Patient denies exposure to infectious person Patient denies travel to an Ebola-affected area in the 21 days before illness onset. Screenin:15 Abuse screen: Denies threats or abuse. Denies injuries from another. Nutritional jl7 screening: No deficits noted. Tuberculosis screening: No symptoms or risk factors identified. Fall Risk None identified. Assessment: 11:23 General: Appears in no apparent distress. uncomfortable, Behavior is calm, cooperative, jl7 appropriate for age. Pain: Complains of pain in mouth Pain currently is 10 out of 10 on a pain scale. Neuro: Level of Consciousness is awake, alert, obeys commands. Cardiovascular: Patient's skin is warm and dry. Respiratory: Airway is patent Respiratory effort is even, unlabored, Respiratory pattern is regular, symmetrical. EENT: Reports pain. Vital Signs: 10:28 BP 148 / 106; Pulse 98; Resp 16; Temp 97.8(TE); Pulse Ox 98% on R/A; Weight 108.86 kg; Height 6 ft. 5 in. (195.58 cm); Pain 10/10; 10:28 Body Mass Index 28.46 (108.86 kg, 195.58 cm) ED Course: 10:11 Patient arrived in ED. mr 10:12 Bernard Chaney MD is Private Physician. mr 10:21 Chapito Rodriguez MD is Attending Physician. [facility] 10:22 Nirmala Herrera, MILENA is Primary Nurse. jl7 10:27 Triage completed. 10:28 Arm band placed on right wrist. 11:00 Bernard Chaney MD is Referral Physician. [facility] 11:01 Adarsh Amaya DDS is Referral Physician. [facility] 11:15 Patient has correct armband on for positive identification. Bed in low position. Call jl7 light in reach. Side rails up X 1. 11:23 No provider procedures requiring assistance completed. Patient did not have IV access jl7 during this emergency room visit. Administered Medications: 11:22 Drug: Augmentin 875 mg Route: PO; jl7 11:22 Follow up: Response: Medication administered at discharge. jl7 Outcome: 11:01 Discharge ordered by . layne 11:23 Discharged to home ambulatory. jl7 11:23 Condition: stable 11:23 Discharge instructions given to patient, Instructed on discharge instructions, follow up and referral plans. medication usage, Demonstrated understanding of instructions, follow-up care, medications, Prescriptions given X 2. 11:24 Patient left the ED. jl7 Signatures: Chapito Rodriguez MD MD cha Rivera, Mary mr PattenAnuja, RN RN Nirmala Herrera, MILENA [email or web address]
--- NOTE | 2019-11-09 11:02 | EDPHYS ---
Physician Documentation [facility] Name: Blair Baca Age: 69 yrs Sex: Male : 1950 Arrival Date: 11/09/2019 Time: 10:11 Bed 6 Private MD: Bernard Chaney E ED Physician Chapito Rodriguez HPI: 11/09 10:55 This 69 yrs old Black Male presents to ER via Ambulatory with complaints of Toothache. layne 10:55 The patient presents with broken tooth/teeth, pain, redness, swelling. The problem is layne located in the right cheek. Onset: The symptoms/episode began/occurred 2 day(s) ago. Duration: The symptoms are continuous, and are steadily getting worse. Modifying factors: The symptoms are alleviated by nothing, the symptoms are aggravated by chewing, food, hot fluids. Associated signs and symptoms: The patient has no apparent associated signs or symptoms. The patient has experienced similar episodes in the past, a few times. Historical: - Allergies: 10:28 No Known Allergies; ss - Home Meds: 10:28 hydrochlorothiazide 25 mg Oral tab 1 tab once daily [Active]; lisinopril 20 mg Oral tab ss 1 tab twice daily [Active]; pravastatin 20 mg Oral tab 1 tab once daily [Active]; - PMHx: 10:28 chronic back pain; Hyperlipidemia; Hypertension; Renal CA; ss - PSHx: 10:28 mass removed from abd; ss - Immunization history:: Adult Immunizations unknown. - Coronavirus screen:: The patient has NOT traveled to [place] in the past 14 days. Proceed with normal triage process as indicated. - Social history:: Smoking status: Patient denies any tobacco usage or history of. - Ebola Screening: : Patient denies exposure to infectious person Patient denies travel to an Ebola-affected area in the 21 days before illness onset. ROS: 10:55 Constitutional: Negative for fever, chills, and weight loss, Eyes: Negative for injury, layne pain, redness, and discharge, Neck: Negative for injury, pain, and swelling, Cardiovascular: Negative for chest pain, palpitations, and edema, Respiratory: Negative for shortness of breath, cough, wheezing, and pleuritic chest pain, Abdomen/GI: Negative for abdominal pain, nausea, vomiting, diarrhea, and constipation, Back: Negative for injury and pain, : Negative for injury, bleeding, discharge, and swelling, MS/Extremity: Negative for injury and deformity, Skin: Negative for injury, rash, and discoloration, Neuro: Negative for headache, weakness, numbness, tingling, and seizure, Psych: Negative for depression, anxiety, suicide ideation, homicidal ideation, and hallucinations, Allergy/Immunology: Negative for hives, rash, and allergies, Endocrine: Negative for neck swelling, polydipsia, polyuria, polyphagia, and marked weight changes, Hematologic/Lymphatic: Negative for swollen nodes, abnormal bleeding, and unusual bruising. 10:55 ENT: Positive for dental pain, Gum pain Teeth pain Exam: 10:55 Constitutional: This is a well developed, well nourished patient who is awake, alert, layne and in no acute distress. Eyes: Pupils equal round and reactive to light, extra-ocular motions intact. Lids and lashes normal. Conjunctiva and sclera are non-icteric and not injected. Cornea within normal limits. Periorbital areas with no swelling, redness, or edema. ENT: Nares patent. No nasal discharge, no septal abnormalities noted. Tympanic membranes are normal and external auditory canals are clear. Oropharynx with no redness, swelling, or masses, exudates, or evidence of obstruction, uvula midline. Mucous membranes moist. Neck: Trachea midline, no thyromegaly or masses palpated, and no cervical lymphadenopathy. Supple, full range of motion without nuchal rigidity, or vertebral point tenderness. No Meningismus. Chest/axilla: Normal chest wall appearance and motion. Nontender with no deformity. No lesions are appreciated. Cardiovascular: Regular rate and rhythm with a normal S1 and S2. No gallops, murmurs, or rubs. Normal PMI, no JVD. No pulse deficits. Respiratory: Lungs have equal breath sounds bilaterally, clear to auscultation and percussion. No rales, rhonchi or wheezes noted. No increased work of breathing, no retractions or nasal flaring. Abdomen/GI: Soft, non-tender, with normal bowel sounds. No distension or tympany. No guarding or rebound. No evidence of tenderness throughout. Back: No spinal tenderness. No costovertebral tenderness. Full range of motion. Skin: Warm, dry with normal turgor. Normal color with no rashes, no lesions, and no evidence of cellulitis. MS/ Extremity: Pulses equal, no cyanosis. Neurovascular intact. Full, normal range of motion. Neuro: Awake and alert, GCS 15, oriented to person, place, time, and situation. Cranial nerves II-XII grossly intact. Motor strength 5/5 in all extremities. Sensory grossly intact. Cerebellar exam normal. Normal gait. Psych: Awake, alert, with orientation to person, place and time. Behavior, mood, and affect are within normal limits. 10:55 Head/face: Noted is tenderness, that is mild, of the right buccal mucosa. Vital Signs: 10:28 BP 148 / 106; Pulse 98; Resp 16; Temp 97.8(TE); Pulse Ox 98% on R/A; Weight 108.86 kg; ss Height 6 ft. 5 in. (195.58 cm); Pain 10; 10:28 Body Mass Index 28.46 (108.86 kg, 195.58 cm) MDM: 10:21 Patient medically screened. [facility] 11:00 Data reviewed: vital signs, nurses notes. [facility] Administered Medications: 11:22 Drug: Augmentin 875 mg Route: PO; [facility] 11:22 Follow up: Response: Medication administered at discharge. jl7 Disposition: 11/09/19 11:01 Discharged to Home. Impression: Dental caries, Dental root caries. - Condition is Stable. - Discharge Instructions: Dental Caries, Adult, Dental Pain, Dental Pain, [id number], Diet and Dental Disease. - Prescriptions for Augmentin 875- 125 mg Oral Tablet - take 1 tablet by ORAL route every 12 hours for 10 days; 20 tablet. Tylenol- Codeine #3 300-30 mg Oral Tablet - take 2 tablet by ORAL route every 6 hours As needed; 30 tablet. - Medication Reconciliation Form, Thank You Letter, Antibiotic Education, Prescription Opioid Use form. - Follow up: Bernard Chaney MD; When: 2 - 3 days; Reason: Recheck today's complaints, Continuance of care, Re-evaluation by your physician. Follow up: Adarsh Amaya DDS; When: 2 - 3 days; Reason: Recheck today's complaints, Continuance of care, Re-evaluation by your physician. - Problem is new. - Symptoms have improved. Signatures: Chapito Rodriguez MD MD cha Smirch, Shelby, RN RN ss Nirmala Herrera RN RN jl7 Corrections: (The following items were deleted from the chart) 11:24 11:01 11/09/2019 11:01 Discharged to Home. Impression: Dental caries; Dental root jl7 caries. Condition is Stable. Forms are Medication Reconciliation Form, Thank You Letter, Antibiotic Education, Prescription Opioid Use. Follow up: Bernard Chaney; When: 2 - 3 days; Reason: Recheck today's complaints, Continuance of care, Re-evaluation by your physician. Follow up: Adarsh Amaya; When: 2 - 3 days; Reason: Recheck today's complaints, Continuance of care, Re-evaluation by your physician. Problem is new. Symptoms have improved. layne
[2019-11-09] MEDS ORDERED: AMOX/K CLAV 875 MG TAB ONE (11:09)
== END 2019-11-09 11:24 | disposition home or self-care (01) ==
LOC: ER 10:08
DX: K02.9 Dental caries, unspecified (principal); K02.7 Dental root caries; I10 Essential (primary) hypertension; E78.5 Hyperlipidemia, unspecified; Z85.528 Personal history of other malignant neoplasm of kidney
CPT/HCPCS: 99283

== ENCOUNTER 2020-09-21 08:52 | Emergency (ER) | payer MEDICARE ==
--- OUTSIDE RECORDS SUMMARY | 2020-09-21 09:46 | XMS REPORT | Clinical Summary ---
:1950 Author Organization [facility] Address [address] [place] [address] Care Team Providers Name Role Phone Unavailable Primary Care Provider Unavailable Allergies No Known Allergies Medications Medication Sig Dispensed Refills Start Date End Date Status lisinopril Take 20 mg by 0 Activ e (PRINIVIL,ZESTRIL) 20 MG mouth 2 (two) tablet [...] oz/Week Comments Yes 1 Cans of beer 1.0 OCCASSIONALLY Sex Assigned at Date Recorded Not on file Last Filed Vital Signs Not on file Plan of Treatment Not on file Results Not on fileafter 09/21/2019 Insurance Payer Benefit Plan / Subscriber ID Effective Dates Phone Addre ss Type Group BLUE BCBS PPO POS [id number] 2016-Suly [phone] [id number] PPO CROSS/BLUE EPO CHOICE t 2 [facility] [id number] Advance Directives For more information, please contact: [phone] Code Status Date Activated Date Inactivated Comments Full Code 01/06/2017 1:01 AM 01/14/2017 8:25 PM This code status was determined by: Patient
--- OUTSIDE RECORDS SUMMARY | 2020-09-21 09:47 | XMS REPORT | Continuity of Care Document ---
:1950 Author Organization [facility] t Address [address] [place] [address] Care Team Providers Name Role Phone LINK, JEROME LAY Attending Clinician Unavailable LINK, ALIREZA Admitting Clinician Unavailable Problems Condition Condition Condition Status Onset Resolution Last Treating Co mments Source Name Details Category Date Date Treatment Clinician Date Renal Renal Disease Active [facility] mass, left mass, left 4-14 Marya kes - 00:00: Medical 00 [place] Flank pain Flank pain Disease Active [facility] [place] Allergies, Adverse Reactions, Alerts This patient has no known allergies or adverse reactions. Social History Social Habit Start Date Stop Date Quantity Comments Source Sex Assigned At [facility] Alcohol intake 2017-01-11 2017-01-11 Current drinker of [facility] - 00:00:00 00:00:00 alcohol ([facility]) [facility] Alcohol Comment 2017-01-05 2017-01-05 OCCASSIONALLY [facility] - 00:00:00 00:00:00 [facility] Smoking Status Start Date Stop Date Source Never smoker [facility] Medications Ordered Filled Start Stop Current Ordering Indication Dosage Frequency Signature Comments Components Source Medication Medication Date Date Medication? Clinician (SIG) Name Name lisinopril Yes 20mg Q.5D Take [address] (PRINIVIL,Z 4-22 by mouth 2 Marya kes - ESTRIL) 20 18:25: (two) Medica l MG tablet 12 times Center daily. hydroCHLORO Yes 25mg QD Take [address] [facility] thiazide 4-22 by mouth [facility] - (HYDRODIURI 18:25: daily. Medi maxi L) [address] [place] [address] tablet pravastatin 2017- Yes 20mg QD Take [address] [facility] [address] (PRAVACHOL) 4-22 by mouth [facility] - 20 MG 18:25: daily. Medical tablet 12 [place] Procedures This patient has no known procedures. Results Test Description Test Time Test Comments Results Result [facility] e Comments TISSUE EXAM 2017-01-17 Surgical Pathology Report 15:47:00 Case: [id number] Sydnie thorizing Provider: Jerome Dao MD Ordering Provider: Jerome Dao MD Ordering Location: [address] Collected: 01/10/2017 1543 Service Pathologist: Saumya [...] SYNOPTIC REPORT Signing Pathologist Direct Phone Line: [phone] tumor cells stain positive for PAX-8, AMACR, [...] microns; nucleoli large and prominentEXTENT Tumor Size (largest tumor if multiple): Greatest dimension (cm): 21 [...] Involved: Specify: 0 Distant Metastasis (pM): Not [id number]; [id number]; 86544 X 3Left renal massLeft kidney, spleen, tail [...] 21.0 x 19.0 x 6.0 cm, smooth, well-circumscribed, unilocular, cystic mass containing dark-brown fluid. The [...] margins; A2, parallel pancreatic resection margin; A3-A4, shared services representative sections of mass with adherent spleen; A5-A8, shared services representative sections of mass with adherent pancreas; A9-A14, shared services representative sections of mass with renal parenchyma; A15-A24, additional shared services representative sections of mass; A25-A26, shared services representative sections of pancreas; A27-A28, shared services representative sections of adrenal gland; A29-A30, shared services representative sections of spleen; A31, accessory spleen; A32, shared services representative section of uninvolved kidney with pelvis and caliceal system; A33, shared services representative section of uninvolved kidney; A34, renal sinus; A35-A36, multiple intact peripancreatic lymph nodes. DB/ewSections show a tumor mass encapsulated by a [...] interpretation is incorporated in the diagnostic report above:The immunohistochemistry test was developed and its performance characteristics determined by [facility] Pathology [facility]. It has not been cleared [...] 2017-01-16 05:28:00 Test Item Value Reference Range Interpretation Comme nts CULTURE (BEAKER) (test code = 1095) No anaerobes isolated HEMOGLOBIN AND [id number] 14:55:00 Test Item Value Reference Range Interpretation Comments HEMOGLOBIN (BEAKER) (test code = 11.9 GM/DL 13.0-16.8 L 410) HEMATOCRIT (BEAKER) (test code = 35.7 % 40.0-50.0 L 411) CBC (HEMOGRAM ONLY)2017-01-14 10:41:00 Test Item Value Reference Range Interpretation Comments WHITE BLOOD CELL COUNT (BEAKER) 6.9 K/ L 4.0-10.0 (test code = 775) RED BLOOD CELL COUNT (BEAKER) 2.66 M/ L 4.20-5.80 L (test code = 761) HEMOGLOBIN (BEAKER) (test code = 8.7 GM/DL 13.0-16.8 L 410) HEMATOCRIT (BEAKER) (test code = 28.4 % 40.0-50.0 L 411) MEAN CORPUSCULAR VOLUME (BEAKER) 107.0 fL 82.0-98.0 H (test code = 753) MEAN CORPUSCULAR HEMOGLOBIN 32.6 pg 27.0-33.0 (BEAKER) (test code = 751) MEAN CORPUSCULAR HEMOGLOBIN CONC 30.5 GM/DL 32.0-36.0 L (BEAKER) (test code = 752) RED CELL DISTRIBUTION WIDTH 13.4 % 10.3-14.2 (BEAKER) (test code = 412) PLATELET COUNT (BEAKER) (test 199 K/CU MM 150-430 code = 756) MEAN PLATELET VOLUME (BEAKER) 8.6 fL 6.5-10.5 (test code = 754) NUCLEATED RED BLOOD CELLS 0 /100 WBC 0-0 (BEAKER) (test code = 413) 0.00SURGICALLY OBTAINED CULTURE + GRAM [id number] 23:39:00 Test Item Value Reference Range Interpretation Comments CULTURE (BEAKER) (test code No growth = 1095) GRAM STAIN RESULT (BEAKER) 3+ WBCs (test code = 1123) GRAM STAIN RESULT (BEAKER) No organisms seen (test code = 45806) AMYLASE, BODY [id number] 04:49:00 Test Item Value Reference Range Interpretation Comments AMYLASE FLUID (BEAKER) (test code = 158 U/L 350) Absence of reference range indicates that normals have not been defined.Assay performance has not been validated for this type of specimen.AMYLASE, BODY FLUID 2017-01-12 09:38:00 Test Item Value Reference Range Interpretation Comments AMYLASE FLUID (BEAKER) (test code = 1456 U/L 350) Absence of reference range indicates that normals have not been defined.Assay performance has not been validated for this type of specimen.[id number] 06:54:00 Test Item Value Reference Range Interpretation Comments POTASSIUM (BEAKER) 3.8 meq/L 3.5-5.1 Specimen slightly (test code = 379) hemolyzed BASIC METABOLIC [id number] 06:54:00 Test Item Value Reference Range Interpretation Comments SODIUM (BEAKER) 138 meq/L 136-145 (test code = 381) POTASSIUM (BEAKER) 3.8 meq/L 3.5-5.1 Specimen slightly (test code = 379) hemolyzed CHLORIDE (BEAKER) 104 meq/L 98-107 (test code = 382) CO2 (BEAKER) (test 26 meq/L 22-29 code = 355) BLOOD UREA NITROGEN 10 mg/dL 7-21 (BEAKER) (test code = 354) CREATININE (BEAKER) 1.28 mg/dL 0.57-1.25 H Specimen slightly (test code = 358) hemolyzed GLUCOSE RANDOM 137 mg/dL 70-105 H (BEAKER) (test code = 652) CALCIUM (BEAKER) 8.5 mg/dL 8.4-10.2 (test code = 697) EGFR (BEAKER) (test 69 mL/min/1.73 ESTIMA THOMAS GFR IS code = 1092) sq m NOT ACCURATE CREATININE CLEARANCE IN PREDICTING GLOMERULAR FILTRATION RATE . ESTIMATED GFR I S NOT APPLICABLE FOR DIALYSIS PATIEN TS. HEMOGLOBIN AND [id number] 06:53:00 Test Item Value Reference Range Interpretation Comments HEMOGLOBIN (BEAKER) (test code = 12.1 GM/DL 13.0-16.8 L 410) HEMATOCRIT (BEAKER) (test code = 37.8 % 40.0-50.0 L 411) [id number] 14:34:00Medical Cytology Report Case: [id number] --- Authorizing Provider: Jerome Dao MD Ordering Provider: Jerome Dao MD OrderingLocation: [address] Collected: 01/10/2017 1147 Service Pathologist: Catrachito Hernandez, Received: 01/10/2017 1543 MD Specimen: Kidney, Lef t LEFT RENAL MASS ASPIRATE (CYTOSPINS AND CELL BLOCK): - NEGATIVE FOR MALIGNANT CELLS Signing Pathologist Direct Phone Line: [phone] cytospins and radha block show mostly old blood elements with no viable epithelial cells present.90022, [id number] cm left renal mass, flank painLEFT RENAL MASS ASPIRATE (CYTOSPINS AND CELL BLOCK)22 mls bloody; 4 cytospins, cell blockCollected: [id number]: [id number] [facility], Department of Pathology, [address] [place] [address], SfqwsdRobert H. [facility], Department of Pathology, [address] [place] [address], [phone] [id number] 12:12:00 Test Item Value Reference Range Interpretation Comments CULTURE (BEAKER) (test 10-19,000 col/mL skin code = 1095) lux AMYLASE, BODY [id number] 07:22:00 Test Item Value Reference Range Interpretation Comments AMYLASE FLUID (BEAKER) (test code = 6125 U/L 350) Absence of reference range indicates that normals have not been defined.Assay performance has not been validated for this type of specimen.CBC W/PLT COUNT & AUTO [id number] 06:40:00 Test Item Value Reference Range Interpretation Comments WHITE BLOOD CELL COUNT (BEAKER) 11.9 K/ L 4.0-10.0 H (test code = 775) RED BLOOD CELL COUNT (BEAKER) 4.15 M/ L 4.20-5.80 L (test code = 761) HEMOGLOBIN (BEAKER) (test code = 12.9 GM/DL 13.0-16.8 L 410) HEMATOCRIT (BEAKER) (test code = 40.0 % 40.0-50.0 411) MEAN CORPUSCULAR VOLUME (BEAKER) 96.4 fL 82.0-98.0 (test code = 753) MEAN CORPUSCULAR HEMOGLOBIN 31.2 pg 27.0-33.0 (BEAKER) (test code = 751) MEAN CORPUSCULAR HEMOGLOBIN CONC 32.3 GM/DL 32.0-36.0 (BEAKER) (test code = 752) RED CELL DISTRIBUTION WIDTH 13.9 % 10.3-14.2 (BEAKER) (test code = 412) PLATELET COUNT (BEAKER) (test 183 K/CU MM 150-430 code = 756) MEAN PLATELET VOLUME (BEAKER) 9.1 fL 6.5-10.5 (test code = 754) NUCLEATED RED BLOOD CELLS 0 /100 WBC 0-0 (BEAKER) (test code = 413) NEUTROPHILS RELATIVE PERCENT 76 % (BEAKER) (test code = 429) LYMPHOCYTES RELATIVE PERCENT 11 % (BEAKER) (test code = 430) MONOCYTES RELATIVE PERCENT 13 % (BEAKER) (test code = 431) EOSINOPHILS RELATIVE PERCENT 0 % (BEAKER) (test code = 432) BASOPHILS RELATIVE PERCENT 0 % (BEAKER) (test code = 437) NEUTROPHILS ABSOLUTE COUNT 9.04 K/ L 1.80-8.00 H (BEAKER) (test code = 670) LYMPHOCYTES ABSOLUTE COUNT 1.28 K/ L 1.48-4.50 L (BEAKER) (test code = 414) MONOCYTES ABSOLUTE COUNT (BEAKER) 1.53 K/ L 0.00-1.30 H (test code = 415) EOSINOPHILS ABSOLUTE COUNT 0.02 K/ L 0.00-0.50 (BEAKER) (test code = 416) BASOPHILS ABSOLUTE COUNT (BEAKER) 0.01 K/ L 0.00-0.20 (test code = 417) 0.00BASIC METABOLIC [id number] 05:56:00 Test Item Value Reference Range Interpretation Comments SODIUM (BEAKER) 136 meq/L 136-145 (test code = 381) POTASSIUM (BEAKER) 5.2 meq/L 3.5-5.1 H Specimen slightly (test code = 379) hemolyzed CHLORIDE (BEAKER) 105 meq/L 98-107 (test code = 382) CO2 (BEAKER) (test 23 meq/L 22-29 code = 355) BLOOD UREA NITROGEN 11 mg/dL 7-21 (BEAKER) (test code = 354) CREATININE (BEAKER) 1.46 mg/dL 0.57-1.25 H Specimen slightly (test code = 358) hemolyzed GLUCOSE RANDOM 302 mg/dL 70-105 H (BEAKER) (test code = 652) CALCIUM (BEAKER) 8.1 mg/dL 8.4-10.2 L (test code = 697) EGFR (BEAKER) (test 59 mL/min/1.73 ESTIMA THOMAS GFR IS code = 1092) sq m NOT ACCURATE CREATININE CLEARANCE IN PREDICTING GLOMERULAR FILTRATION RATE . ESTIMATED GFR I S NOT APPLICABLE FOR DIALYSIS PATIEN TS. BASIC METABOLIC [id number] 17:46:00 Test Item Value Reference Range Interpretation Comments SODIUM (BEAKER) 139 meq/L 136-145 (test code = 381) POTASSIUM (BEAKER) 4.1 meq/L 3.5-5.1 (test code = 379) CHLORIDE (BEAKER) 107 meq/L 98-107 (test code = 382) CO2 (BEAKER) (test 20 meq/L 22-29 L code = 355) BLOOD UREA NITROGEN 10 mg/dL 7-21 (BEAKER) (test code = 354) CREATININE (BEAKER) 1.44 mg/dL 0.57-1.25 H (test code = 358) GLUCOSE RANDOM 176 mg/dL 70-105 H (BEAKER) (test code = 652) CALCIUM (BEAKER) 8.2 mg/dL 8.4-10.2 L (test code = 697) EGFR (BEAKER) (test 60 mL/min/1.73 ESTIMA THOMAS GFR IS code = 1092) sq m NOT ACCURATE CREATININE CLEARANCE IN PREDICTING GLOMERULAR FILTRATION RATE . ESTIMATED GFR I S NOT APPLICABLE FOR DIALYSIS PATIEN TS. CBC W/PLT COUNT & AUTO [id number] 17:28:00 Test Item Value Reference Range Interpretation Comments WHITE BLOOD CELL COUNT (BEAKER) 13.5 K/ L 4.0-10.0 H (test code = 775) RED BLOOD CELL COUNT (BEAKER) 4.20 M/ L 4.20-5.80 (test code = 761) HEMOGLOBIN (BEAKER) (test code = 13.1 GM/DL 13.0-16.8 410) HEMATOCRIT (BEAKER) (test code = 39.9 % 40.0-50.0 L 411) MEAN CORPUSCULAR VOLUME (BEAKER) 94.9 fL 82.0-98.0 (test code = 753) MEAN CORPUSCULAR HEMOGLOBIN 31.1 pg 27.0-33.0 (BEAKER) (test code = 751) MEAN CORPUSCULAR HEMOGLOBIN CONC 32.8 GM/DL 32.0-36.0 (BEAKER) (test code = 752) RED CELL DISTRIBUTION WIDTH 12.6 % 10.3-14.2 (BEAKER) (test code = 412) PLATELET COUNT (BEAKER) (test 180 K/CU MM 150-430 code = 756) MEAN PLATELET VOLUME (BEAKER) 9.1 fL 6.5-10.5 (test code = 754) NUCLEATED RED BLOOD CELLS 0 /100 WBC 0-0 (BEAKER) (test code = 413) NEUTROPHILS RELATIVE PERCENT 89 % (BEAKER) (test code = 429) LYMPHOCYTES RELATIVE PERCENT 6 % (BEAKER) (test code = 430) MONOCYTES RELATIVE PERCENT 5 % (BEAKER) (test code = 431) EOSINOPHILS RELATIVE PERCENT 0 % (BEAKER) (test code = 432) BASOPHILS RELATIVE PERCENT 0 % (BEAKER) (test code = 437) NEUTROPHILS ABSOLUTE COUNT 12.00 K/ L 1.80-8.00 H (BEAKER) (test code = 670) LYMPHOCYTES ABSOLUTE COUNT 0.80 K/ L 1.48-4.50 L (BEAKER) (test code = 414) MONOCYTES ABSOLUTE COUNT (BEAKER) 0.68 K/ L 0.00-1.30 (test code = 415) EOSINOPHILS ABSOLUTE COUNT 0.01 K/ L 0.00-0.50 (BEAKER) (test code = 416) BASOPHILS ABSOLUTE COUNT (BEAKER) 0.04 K/ L 0.00-0.20 (test code = 417) 0.00POCT-GLUCOSE [id number] 08:00:00 Test Item Value Reference Range Interpretation Comments POC-GLUCOSE METER 109 mg/dL 70-110 TESTED AT [facility] 6720 (BEAKER) (test code = [place] 1538) [address] HEPATIC FUNCTION [id number] 04:56:00 Test Item Value Reference Range Interpretation Comments TOTAL PROTEIN (BEAKER) (test code = 7.3 gm/dL 6.0-8.3 770) ALBUMIN (BEAKER) (test code = 1145) 4.0 g/dL 3.5-5.0 BILIRUBIN TOTAL (BEAKER) (test code 0.7 mg/dL 0.2-1.2 = 377) BILIRUBIN DIRECT (BEAKER) (test 0.3 mg/dL 0.1-0.5 code = 706) ALKALINE PHOSPHATASE (BEAKER) (test 46 U/L 40-150 code = 346) AST (SGOT) (BEAKER) (test code = 26 U/L 5-34 353) ALT (SGPT) (BEAKER) (test code = 16 U/L 6-55 347) BASIC METABOLIC [id number] 04:56:00 Test Item Value Reference Range Interpretation Comments SODIUM (BEAKER) 141 meq/L 136-145 (test code = 381) POTASSIUM (BEAKER) 4.5 meq/L 3.5-5.1 (test code = 379) CHLORIDE (BEAKER) 106 meq/L 98-107 (test code = 382) CO2 (BEAKER) (test 26 meq/L 22-29 code = 355) BLOOD UREA NITROGEN 14 mg/dL 7-21 (BEAKER) (test code = 354) CREATININE (BEAKER) 1.23 mg/dL 0.57-1.25 (test code = 358) GLUCOSE RANDOM 92 mg/dL 70-105 (BEAKER) (test code = 652) CALCIUM (BEAKER) 9.3 mg/dL 8.4-10.2 (test code = 697) EGFR (BEAKER) (test 72 mL/min/1.73 ESTIMA THOMAS GFR IS code = 1092) sq m NOT ACCURATE CREATININE CLEARANCE IN PREDICTING GLOMERULAR FILTRATION RATE . ESTIMATED GFR I S NOT APPLICABLE FOR DIALYSIS PATIEN TS. CBC W/PLT COUNT & AUTO [id number] 04:46:00 Test Item Value Reference Range Interpretation Comments WHITE BLOOD CELL COUNT (BEAKER) 6.5 K/ L 4.0-10.0 (test code = 775) RED BLOOD CELL COUNT (BEAKER) 4.45 M/ L 4.20-5.80 (test code = 761) HEMOGLOBIN (BEAKER) (test code = 14.0 GM/DL 13.0-16.8 410) HEMATOCRIT (BEAKER) (test code = 42.8 % 40.0-50.0 411) MEAN CORPUSCULAR VOLUME (BEAKER) 96.2 fL 82.0-98.0 (test code = 753) MEAN CORPUSCULAR HEMOGLOBIN 31.6 pg 27.0-33.0 (BEAKER) (test code = 751) MEAN CORPUSCULAR HEMOGLOBIN CONC 32.8 GM/DL 32.0-36.0 (BEAKER) (test code = 752) RED CELL DISTRIBUTION WIDTH 13.8 % 10.3-14.2 (BEAKER) (test code = 412) PLATELET COUNT (BEAKER) (test 160 K/CU MM 150-430 code = 756) MEAN PLATELET VOLUME (BEAKER) 9.3 fL 6.5-10.5 (test code = 754) NUCLEATED RED BLOOD CELLS 0 /100 WBC 0-0 (BEAKER) (test code = 413) NEUTROPHILS RELATIVE PERCENT 54 % (BEAKER) (test code = 429) LYMPHOCYTES RELATIVE PERCENT 32 % (BEAKER) (test code = 430) MONOCYTES RELATIVE PERCENT 12 % (BEAKER) (test code = 431) EOSINOPHILS RELATIVE PERCENT 2 % (BEAKER) (test code = 432) BASOPHILS RELATIVE PERCENT 1 % (BEAKER) (test code = 437) NEUTROPHILS ABSOLUTE COUNT 3.51 K/ L 1.80-8.00 (BEAKER) (test code = 670) LYMPHOCYTES ABSOLUTE COUNT 2.05 K/ L 1.48-4.50 (BEAKER) (test code = 414) MONOCYTES ABSOLUTE COUNT (BEAKER) 0.78 K/ L 0.00-1.30 (test code = 415) EOSINOPHILS ABSOLUTE COUNT 0.10 K/ L 0.00-0.50 (BEAKER) (test code = 416) BASOPHILS ABSOLUTE COUNT (BEAKER) 0.06 K/ L 0.00-0.20 (test code = 417) 0.00PT/[id number] 04:45:00 Test Item Value Reference Range Interpretation Comments PROTIME (BEAKER) (test code = 14.5 seconds 11.7-14.7 759) INR (BEAKER) (test code = 370) 1.1 <=5.9 PARTIAL THROMBOPLASTIN TIME 27.7 seconds 22.5-36.0 (BEAKER) (test code = 760) RECOMMENDED COUMADIN/WARFARIN INR THERAPY RANGESSTANDARD DOSE: 2.0 - 3.0 Includes: PROPHYLAXIS forvenous thrombosis, systemic embolization; TREATMENT for venous thrombosis and/or pulmonary embolus.HIGH RISK: Target INR is 2.5-3.5 for patients with mechanical heart valves.URINALYSIS W/ [id number] 04:29:00 Test Item Value Reference Range Interpretation Comments COLOR (BEAKER) (test code = Light Yellow 470) CLARITY (BEAKER) (test code = Clear 469) SPECIFIC GRAVITY UA (BEAKER) 1.007 1.001-1.035 (test code = 468) PH UA (BEAKER) (test code = 6.0 5.0-8.0 467) PROTEIN UA (BEAKER) (test code Negative Negative = 464) GLUCOSE UA (BEAKER) (test code Negative Negative = 365) KETONES UA (BEAKER) (test code Negative Negative = 371) BILIRUBIN UA (BEAKER) (test Negative Negative code = 462) BLOOD UA (BEAKER) (test code = Negative Negative 461) NITRITE UA (BEAKER) (test code Negative Negative = 465) LEUKOCYTE ESTERASE UA (BEAKER) Negative Negative (test code = 466) UROBILINOGEN UA (BEAKER) (test 0.2 mg/dL 0.2-1.0 code = 463) RBC UA (BEAKER) (test code = < /HPF 519) WBC UA (BEAKER) (test code = 1 /HPF 520) SOURCE(BEAKER) (test code = Urine, Voided 6020)
--- NOTE | 2020-09-21 09:55 | RAD REPORT ---
EXAM DESCRIPTION: CT - Head Brain Wo Cont - 09/21/2020 9:43 am CLINICAL HISTORY: PAIN Headache, drowsiness, hypertension COMPARISON: Head Brain Wo Cont dated 10/27/2017 TECHNIQUE: All CT scans are performed using dose optimization technique as appropriate and may inclu de automated exposure control or mA/KV adjustment according to patient size. FINDINGS: No intracranial hemorrhage, hydrocephalus or extra-axial fluid collection.No areas of brai n edema or evidence of midline shift. The paranasal sinuses and mastoids are clear. The calvarium is intact. IMPRESSION: No acute intracranial abnormality.
[2020-09-21] MEDS ORDERED: ONDANSETRON 4 MG/2 ML VIAL ONE (10:20)
[2020-09-21] MEDS ORDERED: MORPHINE 4 MG/ML SYR ONE (10:20)
--- NOTE | 2020-09-21 10:20 | EDPHYS ---
Physician Documentation [facility] Name: Blair Baca Age: 70 yrs Sex: Male : 1950 Arrival Date: 09/21/2020 Time: 08:54 Bed 14 Private MD: ED Physician Jimmy Tai HPI: 09/21 09:31 This 70 yrs old Black Male presents to ER via Ambulatory with complaints of High Blood pm1 Pressure, Headache. 09:31 The patient has elevated blood pressure and discovered this at home, with a home pm1 device. Onset: The symptoms/episode began/occurred this morning. Modifying factors: The symptoms are aggravated by Patient believes that it is due to the Tylenol #3 that he took last night. Associated signs and symptoms: Pertinent positives: headache, nausea, vomiting, Pertinent negatives: chest pain, weakness, shortness of breasth. Severity of symptoms: in the emergency department the blood pressure is unchanged. The patient has not recently seen a physician. Historical: - Allergies: 09:14 No Known Allergies; jl7 - Home Meds: 09:14 lisinopril 20 mg Oral tab 1 tab twice daily [Active]; jl7 - PMHx: 09:14 chronic back pain; Hypertension; Renal CA; Hyperlipidemia; jl7 - Immunization history:: Adult Immunizations not up to date. - Social history:: Smoking status: Patient denies any tobacco usage or history of. ROS: 09:31 Constitutional: Negative for fever, chills, and weight loss, Eyes: Negative for injury, pm1 pain, redness, and discharge, ENT: Negative for injury, pain, and discharge, Neck: Negative for injury, pain, and swelling, Cardiovascular: Negative for chest pain, palpitations, and edema, Respiratory: Negative for shortness of breath, cough, wheezing, and pleuritic chest pain. 09:31 MS/Extremity: Negative for injury and deformity, Skin: Negative for injury, rash, and discoloration. 09:31 Abdomen/GI: Positive for nausea, Negative for abdominal pain, vomiting, diarrhea. 09:31 Back: Positive for chronic low back pain. 09:31 Neuro: Positive for headache, Negative for numbness, tingling, weakness. Exam: 09:31 Constitutional: This is a well developed, well nourished patient who is awake, alert, pm1 and in no acute distress. Head/Face: Normocephalic, atraumatic. Neck: Trachea midline, no thyromegaly or masses palpated, and no cervical lymphadenopathy. Supple, full range of motion without nuchal rigidity, or vertebral point tenderness. No Meningismus. Cardiovascular: Regular rate and rhythm with a normal S1 and S2. No gallops, murmurs, or rubs. Normal PMI, no JVD. No pulse deficits. Respiratory: Lungs have equal breath sounds bilaterally, clear to auscultation and percussion. No rales, rhonchi or wheezes noted. No increased work of breathing, no retractions or nasal flaring. 09:31 Back: No spinal tenderness. No costovertebral tenderness. Full range of motion. Skin: Warm, dry with normal turgor. Normal color with no rashes, no lesions, and no evidence of cellulitis. MS/ Extremity: Pulses equal, no cyanosis. Neurovascular intact. Full, normal range of motion. 09:31 Abdomen/GI: Inspection: abdomen appears normal, Palpation: abdomen is soft and non-tender, in all quadrants. 09:31 Neuro: Exam negative for acute changes, Orientation: is normal, Mentation: is normal, Motor: is normal, Gait: is steady, at a normal pace, without difficulty. Vital Signs: 09:11 BP 160 / 109; Pulse 85; Resp 17; Temp 97.8; Pulse Ox 100% ; Weight 111.13 kg; Height 6 jl7 ft. 5 in. (195.58 cm); Pain 8/10; 10:00 BP 146 / 97; Pulse 74; Resp 18; Pulse Ox 99% on R/A; Pain 8/10; em 11:12 BP 152 / 101; Pulse 67; Resp 18; Pulse Ox 99% on R/A; Pain 5/10; em 09:11 Body Mass Index 29.05 (111.13 kg, 195.58 cm) jl7 MDM: 09:15 Patient medically screened. pm1 10:10 Refusal of service: The patient/guardian displays adequate decision making capability pm1 and despite a detailed discussion of alternatives, benefits, risks, and consequences refuses: all lab tests, IV saline lock, medications by IV. He said that he just wants medications by mouth for his headache. 10:17 Data reviewed: vital signs. pm1 09/21 09:31 Order name: CT Head Brain wo Cont; Complete Time: 10:10 pm1 09/21 09:31 Order name: XRAY Chest (1 view); Complete Time: 16:08 pm1 09/21 09:31 Order name: EKG; Complete Time: 09:32 pm1 09/21 09:31 Order name: Cardiac monitoring; Complete Time: 09:53 pm1 09/21 09:31 Order name: EKG - Nurse/Tech; Complete Time: 09:53 pm1 09/21 09:31 Order name: Labs collected and sent; Complete Time: 10:00 pm1 09/21 09:31 Order name: O2 Per Protocol; Complete Time: 10:00 pm1 09/21 09:31 Order name: O2 Sat Monitoring; Complete Time: 10:00 pm1 Administered Medications: 10:11 Not Given (Patient Refused): Zofran (Ondansetron) 4 mg IVP once; over 2 minutes em 10:11 Not Given (Patient Refused): morphine 4 mg IVP once; RASS on ADMIN: Combtv4, Very em Agttd3, Agttd2, Rstlss1, AlertClm0, Drwsy-1, Lt Sdtn-2, Mod Sdtn-3, Dp Sdtn-4, UnArsble-5 10:35 Drug: Ondansetron (Zofran) 4 mg Route: PO; em 11:11 Follow up: Response: No adverse reaction; Marked relief of symptoms; Nausea is decreasedem 10:53 Drug: [place] 5 mg-325 mg 1 tabs Route: PO; em 11:11 Follow up: Response: No adverse reaction; Marked relief of symptoms; Pain is decreased; em RASS: Alert and Calm (0) Disposition: 12:22 Co-signature as Attending Physician, Jimmy Tai MD. rn Disposition: 09/21/20 10:19 Patient has left against medical advice. Impression: Headache, Essential (primary) hypertension, Nausea and vomiting. - Patients states they are going to Home. - Condition is Undetermined. - Discharge Instructions: General Headache Without Cause, Hypertension, Nausea and Vomiting, Adult, How to Take Your Blood Pressure, Hmjn-hp-Wiqu, DASH Eating Plan, Managing Your Hypertension. - Prescriptions for Fiorinal 50- 325-40 mg Oral Capsule - take 1 capsule by ORAL route every 4 hours As needed - not to exceed 6 capsules per day; 20 capsule. Zofran 4 mg Oral Tablet - take 1 tablet by ORAL route every 12 hours As needed; 20 tablet. Follow up: Emergency Department; When: As needed; Reason: Worsening of condition. Follow up: Private Physician; When: Upon discharge from the Emergency Department; Reason: Recheck today's complaints, Continuance of care, Re-evaluation by your physician. - Problem is new. - Symptoms are unchanged. Signatures: Dispatcher [employer] Nazario Elizabeth, RN RN em Jimmy Tai MD MD rn Marinas, Patrick, IRRIGATION TEACHER IRRIGATION TEACHER pm1 Nirmala Herrera RN RN jl7 Corrections: (The following items were deleted from the chart) 10:12 09:31 IV Saline Lock ordered. pm1 em 11:13 10:19 09/21/2020 10:19 Patients has left against medical advice. Impression: Headache; em Essential (primary) hypertension; Nausea and vomiting. Patient states they are going to Home. Condition is Undetermined. Follow up: Emergency Department; When: As needed; Reason: Worsening of condition. Follow up: Private Physician; When: Upon discharge from the Emergency Department; Reason: Recheck today's complaints, Continuance of care, Re-evaluation by your physician. Problem is new. Symptoms are unchanged. pm1
--- NOTE | 2020-09-21 10:20 | ER ---
Nurse's Notes [facility] Name: Blair Baca Age: 70 yrs Sex: Male : 1950 Arrival Date: 09/21/2020 Time: 08:54 Bed 14 Private MD: Diagnosis: Headache;Essential (primary) hypertension;Nausea and vomiting Presentation: 09/21 09:11 Chief complaint: Patient states: Woke this morning with a CHAVIRA and a little nausea, check [facility] BP and it was 160/?. Coronavirus screen: Client denies travel out of the [place] in the last 14 days. At this time, the client does not indicate any symptoms associated with coronavirus-19. Ebola Screen: No symptoms or risks identified at this time. Initial Sepsis Screen: Does the patient meet any 2 criteria? No. Patient's initial sepsis screen is negative. Does the patient have a suspected source of infection? No. Patient's initial sepsis screen is negative. Risk Assessment: Do you want to hurt yourself or someone else? Patient reports no desire to harm self or others. Onset of symptoms is unknown. Care prior to arrival: None. 09:11 Method Of Arrival: Ambulatory [facility] 09:11 Acuity: AMILCAR 2 7 Triage Assessment: 09:14 Headache History: The patient has had previous headaches and this one is similar to jl7 previous episodes. General: Appears in no apparent distress. uncomfortable, Behavior is calm, cooperative, appropriate for age. Pain: Complains of pain in CHAVIRA Pain currently is 8 out of 10 on a pain scale. Pain began uknown Also complains of nausea. Neuro: Level of Consciousness is awake, alert, obeys commands, Oriented to person, place, time, situation, Moves all extremities. Full function Gait is steady, Speech is normal, Facial symmetry appears normal. Historical: - Allergies: 09:14 No Known Allergies; jl7 - Home Meds: 09:14 lisinopril 20 mg Oral tab 1 tab twice daily [Active]; jl7 - PMHx: 09:14 chronic back pain; Hypertension; Renal CA; Hyperlipidemia; jl7 - Immunization history:: Adult Immunizations not up to date. - Social history:: Smoking status: Patient denies any tobacco usage or history of. Screenin:45 Abuse screen: Denies threats or abuse. Nutritional screening: No deficits noted. em Tuberculosis screening: No symptoms or risk factors identified. Fall Risk None identified. Assessment: 10:07 Reassessment: pt states he is here for his headache and does not want blood work nor an em IV at this time, pt reports he wants a pill for his head ache, VERNON Leon notified. Vital Signs: 09:11 BP 160 / 109; Pulse 85; Resp 17; Temp 97.8; Pulse Ox 100% ; Weight 111.13 kg; Height 6 jl7 ft. 5 in. (195.58 cm); Pain 8/10; 10:00 BP 146 / 97; Pulse 74; Resp 18; Pulse Ox 99% on R/A; Pain 8/10; em 11:12 BP 152 / 101; Pulse 67; Resp 18; Pulse Ox 99% on R/A; Pain 5/10; em 09:11 Body Mass Index 29.05 (111.13 kg, 195.58 cm) jl7 ED Course: 08:54 Patient arrived in ED. rg4 09:03 Nazario Riojas, MILENA is Primary Nurse. em 09:06 Edward Wyatt NP is PHCP. pm1 09:06 Jimmy Tai MD is Attending Physician. pm1 09:13 Triage completed. jl7 09:14 Arm band placed on right wrist. jl7 09:42 CT Head Brain wo Cont In Process Unspecified. EDMS 09:45 Patient has correct armband on for positive identification. Bed in low position. Pulse em ox on. NIBP on. 09:49 EKG done, by ED staff, reviewed by Edward Wyatt NP. dh3 10:39 XRAY Chest (1 view) In Process Unspecified. EDMS 11:09 No provider procedures requiring assistance completed. Patient did not have IV access em during this emergency room visit. Administered Medications: 10:11 Not Given (Patient Refused): Zofran (Ondansetron) 4 mg IVP once; over 2 minutes em 10:11 Not Given (Patient Refused): morphine 4 mg IVP once; RASS on ADMIN: Combtv4, Very em Agttd3, Agttd2, Rstlss1, AlertClm0, Drwsy-1, Lt Sdtn-2, Mod Sdtn-3, Dp Sdtn-4, UnArsble-5 10:35 Drug: Ondansetron (Zofran) 4 mg Route: PO; em 11:11 Follow up: Response: No adverse reaction; Marked relief of symptoms; Nausea is decreasedem 10:53 Drug: [place] 5 mg-325 mg 1 tabs Route: PO; em 11:11 Follow up: Response: No adverse reaction; Marked relief of symptoms; Pain is decreased; em RASS: Alert and Calm (0) Outcome: 11:09 AMA AMA form signed em 11:09 Condition: stable 11:09 Discharge instructions given to patient, Instructed on discharge instructions, follow up and referral plans. medication usage, Demonstrated understanding of instructions, follow-up care, medications, Prescriptions given X 2. 11:13 Patient left the ED. em Signatures: Dispatcher [employer] Nazario Elizabeth RN RN em Edward Wyatt, VERNON BROOMMAKER pm1 Olga Patino rg4 Nirmala Herrera RN RN jl7 Marietta Parr 3
[2020-09-21] MEDS ORDERED: ONDANSETRON 4 MG (ODT) TAB ONE (10:50)
[2020-09-21] MEDS ORDERED: HYDROCODONE/APAP 5/325 MG TAB ONE (10:51)
--- NOTE | 2020-09-21 10:59 | RAD REPORT ---
EXAM DESCRIPTION: RAD - Chest Single View - 09/21/2020 10:39 am CLINICAL HISTORY: CHEST PAIN Chest pain. COMPARISON: Chest Pa And Lat (2 Views) dated 11/29/2019; Chest Pa And Lat (2 Views) dated 08/24/2019; Abdomen 1 View (KUB) dated 07/01/2019; Chest Pa And Lat (2 Views) dated 01/26/2019 FINDINGS: Portable technique limits examination quality. The lungs are grossly clear. The heart is normal in size. No displaced fractures. IMPRESSION: No acute intrathoracic process suspected.
[2020-09-21 11:17] VITALS: TEMP 97.8
[2020-09-21 11:18] VITALS: O2SAT 99
[2020-09-21 11:20] VITALS: BP 152/101
--- NOTE | 2020-09-22 16:09 | EKG ---
Test Date: 2020-09-21 Test Time: 09:49:26 Software Verification Engineer: MARCUS MEASUREMENT RESULTS: Intervals: Rate: 70 TN: 168 QRSD: 94 QT: 386 QTc: 416 [place]: P: 46 TN: 168 QRS: 17 T: 60 INTERPRETIVE STATEMENTS: Normal sinus rhythm Normal ECG Compared to ECG 10/27/2017 12:27:34 Myocardial infarct finding no longer present Electronically Signed On 09-22-20 16:05:43 KEYBOARD INSTRUMENT TUNER by Eddy Holland
== END 2020-09-21 11:13 | disposition left against medical advice (07) ==
LOC: ER 08:52
DX: I10 Essential (primary) hypertension (principal); R11.2 Nausea with vomiting, unspecified; Z85.53 Personal history of malignant neoplasm of renal pelvis
CPT/HCPCS: 93005; 70450; 71045; 99284; J2405

== ENCOUNTER 2020-09-24 16:04 | Emergency (ER) | payer MEDICARE ==
--- OUTSIDE RECORDS SUMMARY | 2020-09-24 16:07 | XMS REPORT | Clinical Summary ---
:1950 Author Organization [facility] Address [address] [place] [address] Care Team Providers Name Role Phone Unavailable [...] Not on file Results Not on fileafter 09/24/2019 Insurance Payer Benefit Plan / Subscriber ID Effective Dates Phone Addre ss Type Group BLUE BCBS PPO POS [id number] 2016-Suly [phone] [address] [id number] PPO CROSS/BLUE EPO CHOICE t 2 [facility] [id number] Advance Directives For more information, please contact: [phone] Code Status Date Activated Date Inactivated Comments Full Code 01/06/2017 1:01 AM 01/14/2017 8:25 PM This code status was determined by: Patient
--- OUTSIDE RECORDS SUMMARY | 2020-09-24 16:07 | XMS REPORT | Continuity of Care Document ---
:1950 Author Organization [facility] t Address [address] [place] [address] Care Team Providers Name Role Phone LINK, JEROME LAY Attending Clinician Unavailable LINK, ALIREZA Admitting Clinician Unavailable Problems Condition Condition Condition Status Onset Resolution Last Treating Co mments Source Name Details Category Date Date Treatment Clinician Date Renal Renal Disease Active [facility] mass, left mass, left 4-14 Marya kes - 00:00: Medical 00 [place] Flank pain Flank pain Disease Active [facility] 00 [place] Allergies, Adverse Reactions, Alerts This patient has no known allergies or adverse reactions. Social History Social Habit Start Date Stop Date Quantity Comments Source Sex Assigned At [facility] Alcohol intake 2017-01-11 2017-01-11 Current drinker of [facility] - 00:00:00 00:00:00 alcohol ([facility]) [facility] Alcohol Comment 2017-01-05 2017-01-05 OCCASSIONALLY [facility] - 00:00:00 00:00:00 [facility] Smoking Status Start Date Stop Date Source Never smoker [facility] Medications Ordered Filled Start Stop Current [...] 18:25: daily. Medi maxi L) 25 MG 12 [place] tablet pravastatin 2017- Yes 20mg QD Take [address] [facility] [address] (PRAVACHOL) 4-22 by mouth [facility] - 20 MG 18:25: daily. Medical tablet [address] [place] [address] Procedures This patient has no known procedures. Results Test Description Test Time Test Comments Results Result [facility] e Comments TISSUE EXAM 2017-01-17 Surgical Pathology Report 15:47:00 Case: [id number] Sydnie thorizing Provider: Jerome Dao MD Ordering Provider: Jerome Dao MD Ordering Location: [address] Collected: 01/10/2017 1543 Service Pathologist: Saumya [...] SYNOPTIC REPORT Signing Pathologist Direct Phone Line: [phone] tumor cells stain positive for PAX-8, AMACR, [...] Involved: Specify: 0 Distant Metastasis (pM): Not [id number]; 13844; 76580 X 3Left renal massLeft kidney, spleen, tail [...] margins; A2, parallel pancreatic resection margin; A3-A4, sales representative consultant sections of mass with adherent spleen; A5-A8, sales representative consultant sections of mass with adherent pancreas; A9-A14, sales representative consultant sections of mass with renal parenchyma; A15-A24, additional sales representative consultant sections of mass; A25-A26, sales representative consultant sections of pancreas; A27-A28, sales representative consultant sections of adrenal gland; A29-A30, sales representative consultant sections of spleen; A31, accessory spleen; A32, sales representative consultant section of uninvolved kidney with pelvis and caliceal system; A33, sales representative consultant section of uninvolved kidney; A34, renal sinus; [...] developed and its performance characteristics determined by [facility], Pathology Laboratory. It has not been [...] = 1095) No anaerobes isolated HEMOGLOBIN AND [id number] 14:55:00 Test Item Value Reference Range Interpretation [...] = 413) 0.00SURGICALLY OBTAINED CULTURE + GRAM [id number] 23:39:00 Test Item Value Reference Range Interpretation Comments CULTURE (BEAKER) (test code No growth = 1095) GRAM STAIN RESULT (BEAKER) 3+ WBCs (test code = 1123) GRAM STAIN RESULT (BEAKER) No organisms seen (test code = 75524) AMYLASE, BODY [id number] 04:49:00 Test Item Value Reference Range Interpretation [...] not been validated for this type of specimen.[id number] 06:54:00 Test Item Value Reference Range Interpretation Comments POTASSIUM (BEAKER) 3.8 meq/L 3.5-5.1 Specimen slightly (test code = 379) hemolyzed BASIC METABOLIC [id number] 06:54:00 Test Item Value Reference Range Interpretation [...] APPLICABLE FOR DIALYSIS PATIEN TS. HEMOGLOBIN AND [id number] 06:53:00 Test Item Value Reference Range Interpretation Comments HEMOGLOBIN (BEAKER) (test code = 12.1 GM/DL 13.0-16.8 L 410) HEMATOCRIT (BEAKER) (test code = 37.8 % 40.0-50.0 L 411) [id number] 14:34:00Medical Cytology Report Case: [id number] --- Authorizing Provider: Jerome Dao MD Ordering Provider: Jerome Dao MD OrderingLocation: [address] Collected: 01/10/2017 1147 Service Pathologist: Catrachito Hernandez, Received: 01/10/2017 1543 Specimen: Kidney, Lef t LEFT RENAL MASS ASPIRATE (CYTOSPINS AND CELL BLOCK): - NEGATIVE FOR MALIGNANT CELLS Signing Pathologist Direct Phone Line: [phone] cytospins and radha block show mostly old blood elements with no viable epithelial cells present.24037, [id number] cm left renal mass, flank painLEFT RENAL MASS ASPIRATE (CYTOSPINS AND CELL BLOCK)22 mls bloody; 4 cytospins, cell blockCollected: [id number]: [id number] [facility], Department of Pathology, [address] [place] [address], [facility], [facility] of [facility], [address] [place] [address], [id number] 12:12:00 Test Item Value Reference Range Interpretation Comments CULTURE (BEAKER) (test 10-19,000 col/mL skin code = 1095) lux AMYLASE, BODY [id number] 07:22:00 Test Item Value Reference Range Interpretation Comments AMYLASE FLUID (BEAKER) (test code = 6125 U/L 350) Absence of reference range indicates that normals have not been defined.Assay performance has not been validated for this type of specimen.CBC W/PLT COUNT & AUTO [id number] 06:40:00 Test Item Value Reference Range Interpretation [...] K/ L 0.00-0.20 (test code = 417) 0.00BASI METABOLIC [id number] 05:56:00 Test Item Value Reference Range Interpretation [...] APPLICABLE FOR DIALYSIS PATIEN TS. BASIC METABOLIC [id number] 17:46:00 Test Item Value Reference Range Interpretation [...] PATIEN TS. CBC W/PLT COUNT & AUTO [id number] 17:28:00 Test Item Value Reference Range Interpretation [...] L 0.00-0.20 (test code = 417) 0.00POCT-GLUCOSE [id number] 08:00:00 Test Item Value Reference Range Interpretation Comments POC-GLUCOSE METER 109 mg/dL 70-110 TESTED AT [facility] 6720 (BEAKER) (test code = SHANI ZHOU 6108) [address] HEPATIC FUNCTION [id number] 04:56:00 Test Item Value Reference Range Interpretation [...] = 16 U/L 6-55 347) BASIC METABOLIC [id number] 04:56:00 Test Item Value Reference Range Interpretation [...] PATIEN TS. CBC W/PLT COUNT & AUTO [id number] 04:46:00 Test Item Value Reference Range Interpretation [...] K/ L 0.00-0.20 (test code = 417) 0.00PT/[id number] 04:45:00 Test Item Value Reference Range Interpretation [...] for patients with mechanical heart valves.URINALYSIS W/ [id number] 04:29:00 Test Item Value Reference Range Interpretation [...] 520) SOURCE(BEAKER) (test code = Urine, Voided 8962)
[2020-09-24 17:11] LABS: Absolute Lymphocytes (CBC) 4.5 K/uL (0.7-4.9); Basophils % 0.9 % (0-1.3); Hematocrit 43.5 % (39.6-49.0); Lymphocytes % 48.8 % (15.3-44.8); MPV 9.3 fL (7.6-11.3)
[2020-09-24 17:27] LABS: ALT/SGPT 26 U/L (12-78); AST/SGOT 28 U/L (15-37); Albumin 3.8 g/dL (3.4-5.0); Alkaline Phosphatase 70 U/L (45-117); BUN Blood Urea Nitrogen 10 mg/dL (7-18); Bicarbonate 29 mmol/L (21-32); Bilirubin Direct < 0.1 mg/dL (0-0.2); Bilirubin Total 0.4 mg/dL (0.2-1.0); Glucose Level 90 mg/dL (74-106); Magnesium 2.4 mg/dL (1.8-2.4); Potassium 3.9 mmol/L (3.5-5.1); Protein, Total 8.2 g/dL (6.4-8.2); Sodium Level 139 mmol/L (136-145); Troponin (Emerg Dept Use Only) < 0.02 ng/mL (0.0-0.045)
[2020-09-24] MEDS ORDERED: AMLODIPINE 5 MG TAB ONE (17:30)
--- NOTE | 2020-09-24 17:36 | EDPHYS ---
Physician Documentation [facility] Name: Blair Baca Age: 70 yrs Sex: Male : 1950 Arrival Date: 09/24/2020 Time: 16:06 Bed 20 Private MD: Bernard Chaney E ED Physician Chapito Rodriguez HPI: 09/24 16:44 This 70 yrs old Black Male presents to ER via Ambulatory with complaints of Blood layne Pressure Problem. 16:44 CHAVIRA OCCASIONALLY, HX OF SOLITARY KIDNEY. Onset: The symptoms/episode began/occurred 5 layne day(s) ago. Severity of symptoms: At their worst the symptoms were mild in the emergency department the symptoms have resolved. The patient has experienced similar episodes in the past, multiple times. Historical: - Allergies: 16:13 No Known Allergies; ca1 - PMHx: 16:13 chronic back pain; Hyperlipidemia; Hypertension; Renal CA; ca1 - PSHx: 16:13 Nephrectomy L; ca1 - Immunization history:: Adult Immunizations up to date, Flu vaccine is not up to date. - Social history:: Smoking status: Patient denies any tobacco usage or history of. - Family history:: not pertinent. ROS: 16:44 Constitutional: Negative for fever, chills, and weight loss, Eyes: Negative for injury, layne pain, redness, and discharge, ENT: Negative for injury, pain, and discharge, Neck: Negative for injury, pain, and swelling, Cardiovascular: Negative for chest pain, palpitations, and edema, Respiratory: Negative for shortness of breath, cough, wheezing, and pleuritic chest pain, Abdomen/GI: Negative for abdominal pain, nausea, vomiting, diarrhea, and constipation, Back: Negative for injury and pain, : Negative for injury, bleeding, discharge, and swelling, MS/Extremity: Negative for injury and deformity, Skin: Negative for injury, rash, and discoloration, Psych: Negative for depression, anxiety, suicide ideation, homicidal ideation, and hallucinations, Allergy/Immunology: Negative for hives, rash, and allergies, Endocrine: Negative for neck swelling, polydipsia, polyuria, polyphagia, and marked weight changes. 16:44 Neuro: Positive for headache. Exam: 16:44 Constitutional: This is a well developed, well nourished patient who is awake, alert, layne and in no acute distress. Head/Face: Normocephalic, atraumatic. Eyes: Pupils equal round and reactive to light, extra-ocular motions intact. Lids and lashes normal. Conjunctiva and sclera are non-icteric and not injected. Cornea within normal limits. Periorbital areas with no swelling, redness, or edema. ENT: Nares patent. No nasal discharge, no septal abnormalities noted. Tympanic membranes are normal and external auditory canals are clear. Oropharynx with no redness, swelling, or masses, exudates, or evidence of obstruction, uvula midline. Mucous membranes moist. Neck: Trachea midline, no thyromegaly or masses palpated, and no cervical lymphadenopathy. Supple, full range of motion without nuchal rigidity, or vertebral point tenderness. No Meningismus. Chest/axilla: Normal chest wall appearance and motion. Nontender with no deformity. No lesions are appreciated. Cardiovascular: Regular rate and rhythm with a normal S1 and S2. No gallops, murmurs, or rubs. Normal PMI, no JVD. No pulse deficits. Respiratory: Lungs have equal breath sounds bilaterally, clear to auscultation and percussion. No rales, rhonchi or wheezes noted. No increased work of breathing, no retractions or nasal flaring. Abdomen/GI: Soft, non-tender, with normal bowel sounds. No distension or tympany. No guarding or rebound. No evidence of tenderness throughout. Back: No spinal tenderness. No costovertebral tenderness. Full range of motion. Male : Normal genitalia with no discharge or lesions. Skin: Warm, dry with normal turgor. Normal color with no rashes, no lesions, and no evidence of cellulitis. MS/ Extremity: Pulses equal, no cyanosis. Neurovascular intact. Full, normal range of motion. Neuro: Awake and alert, GCS 15, oriented to person, place, time, and situation. Cranial nerves II-XII grossly intact. Motor strength 5/5 in all extremities. Sensory grossly intact. Cerebellar exam normal. Normal gait. Psych: Awake, alert, with orientation to person, place and time. Behavior, mood, and affect are within normal limits. 17:09 ECG was reviewed by the Attending Physician. [facility] Vital Signs: 16:08 BP 149 / 103; Pulse 74; Resp 18 S; Temp 97.4(TE); Pulse Ox 100% on R/A; Weight 112.04 ca1 kg (R); Height 6 ft. 5 in. (195.58 cm) (R); Pain 0/10; 17:00 BP 151 / 99; Pulse 68; Resp 16; Pulse Ox 100% ; bp 18:00 BP 137 / 95; Pulse 77; Resp 17; Temp 97.5; Pulse Ox 100% ; bp 16:08 Body Mass Index 29.29 (112.04 kg, 195.58 cm) ca1 MDM: 16:22 Patient medically screened. [facility] 16:57 Data reviewed: vital signs, nurses notes, lab test result(s), EKG, radiologic studies, [facility] plain films. Data interpreted: setter cold rolling machine: rate is 74 beats/min, rhythm is regular, Pulse oximetry: on room air is 100 %. Test interpretation: by ED physician or midlevel provider: ECG, plain radiologic studies. Counseling: I had a detailed discussion with the patient and/or guardian regarding: the historical points, exam findings, and any diagnostic results supporting the discharge/admit diagnosis, lab results, radiology results. 09/24 16:23 Order name: Basic Metabolic Panel [facility] 09/24 16:23 Order name: CBC with Diff [facility] 09/24 16:23 Order name: LFT's [facility] 09/24 16:23 Order name: Magnesium [facility] 09/24 16:23 Order name: Troponin (emerg Dept Use Only) [facility] 09/24 17:39 Order name: Urine Dipstick--Ancillary (enter results) em1 09/24 16:23 Order name: EKG; Complete Time: 16:24 [facility] 09/24 16:23 Order name: Cardiac monitoring; Complete Time: 16:59 [facility] 09/24 16:23 Order name: EKG - Nurse/Tech; Complete Time: 16:59 [facility] 09/24 16:23 Order name: IV Saline Lock; Complete Time: 16:54 [facility] 09/24 16:23 Order name: Labs collected and sent; Complete Time: 16:54 [facility] 09/24 17:41 Order name: Manual Differential EDVT 09/24 16:23 Order name: O2 Per Protocol; Complete Time: 16:54 [facility] 09/24 16:23 Order name: O2 Sat Monitoring; Complete Time: 16:54 [facility] 09/24 16:43 Order name: Urine Dipstick-Ancillary (obtain specimen); Complete Time: 17:30 layne EC:09 Rate is 68 beats/min. Rhythm is regular. QRS [place] is Normal. [place] interval is normal. QRS layne interval is normal. QT interval is normal. No Q waves. T waves are Normal. No ST changes noted. Clinical impression: NSR w/ Non-specific ST/T Changes and No evidence of ischemia. Interpreted by me. Reviewed by me. Administered Medications: 17:10 Drug: Norvasc 5 mg Route: PO; bp 18:06 Follow up: Response: No adverse reaction bp Disposition: 09/24/20 17:35 Discharged to Home. Impression: Essential (primary) hypertension, Unspecified kidney failure - insufficency. - Condition is Stable. - Discharge Instructions: Hypertension, Hypertension, [id number], How to Take Your Blood Pressure, [id number]-[id number], Aspirin and Your Heart, Managing Your Hypertension. - Prescriptions for Norvasc 5 mg Oral Tablet - take 1 tablet by ORAL route once daily; 20 tablet. Lisinopril 10 mg Oral Tablet - take 1 tablet by ORAL route once daily; 20 tablet. - Medication Reconciliation Form, Thank You Letter, Antibiotic Education, Prescription Opioid Use form. - Follow up: Bernard Chaney; When: 2 - 3 days; Reason: Recheck today's complaints, Continuance of care, Re-evaluation by your physician. Follow up: Eddy Holland; When: 2 - 3 days; Reason: Recheck today's complaints, Continuance of care, Re-evaluation by your physician. Follow up: Armando Mendez DO; When: 2 - 3 days; Reason: Recheck today's complaints, Continuance of care, Re-evaluation by your physician. - Problem is new. - Symptoms have improved. Signatures: Dispatcher [employer] [facility] Chapito Rodriguez MD MD cha Peltier, Brian, RN RN bp Gladys Pavon RN RN ca1 Corrections: (The following items were deleted from the chart) 16:47 16:24 Chest Single View+RAD.RAD.BRZ ordered. [facility] 17:44 17:35 09/24/2020 17:35 Discharged to Home. Impression: Essential (primary) layne hypertension. Condition is Stable. Discharge Instructions: Hypertension, Hypertension, [id number], How to Take Your Blood Pressure, Kuuc-vx-Xcqb, Aspirin and Your Heart, Managing Your Hypertension. Prescriptions for Norvasc 5 mg Oral Tablet - take 1 tablet by ORAL route once daily; 20 tablet, Lisinopril 10 mg Oral Tablet - take 1 tablet by ORAL route once daily; 20 tablet. and Forms are Medication Reconciliation Form, Thank You Letter, Antibiotic Education, Prescription Opioid Use. Follow up: Bernard Chaney; When: 2 - 3 days; Reason: Recheck today's complaints, Continuance of care, Re-evaluation by your physician. Follow up: Eddy Holland; When: 2 - 3 days; Reason: Recheck today's complaints, Continuance of care, Re-evaluation by your physician. Follow up: Armando Mendez; When: 2 - 3 days; Reason: Recheck today's complaints, Continuance of care, Re-evaluation by your physician. Problem is new. Symptoms have improved. layne 18:11 17:44 09/24/2020 17:35 Discharged to Home. Impression: Essential (primary) bp hypertension; Unspecified kidney failure - insufficency. Condition is Stable. Discharge Instructions: Hypertension, Hypertension, Pcpl-cw-[id number], How to Take Your Blood Pressure, Dttc-[id number], Aspirin and Your Heart, Managing Your Hypertension. Prescriptions for Norvasc 5 mg Oral Tablet - take 1 tablet by ORAL route once daily; 20 tablet, Lisinopril 10 mg Oral Tablet - take 1 tablet by ORAL route once daily; 20 tablet. and Forms are Medication Reconciliation Form, Thank You Letter, Antibiotic Education, Prescription Opioid Use. Follow up: Bernard Chaney; When: 2 - 3 days; Reason: Recheck today's complaints, Continuance of care, Re-evaluation by your physician. Follow up: Eddy Holland; When: 2 - 3 days; Reason: Recheck today's complaints, Continuance of care, Re-evaluation by your physician. Follow up: Armando Mendez; When: 2 - 3 days; Reason: Recheck today's complaints, Continuance of care, Re-evaluation by your physician. Problem is new. Symptoms have improved. layne
--- NOTE | 2020-09-24 17:36 | ER ---
Nurse's Notes [facility] Name: Blair Baca Age: 70 yrs Sex: Male : 1950 Arrival Date: 09/24/2020 Time: 16:06 Bed 20 Private MD: Bernard Chaney E Diagnosis: Essential (primary) hypertension;Unspecified kidney failure-insufficency Presentation: 09/24 16:08 Chief complaint: Patient states: Was here Monday for high blood pressure and I was ca1 having a headache. Today, my BP was high again, 170/103. Denies headache. Denies dizziness. Coronavirus screen: Client denies travel out of the [place] in the last 14 days. At this time, the client does not indicate any symptoms associated with coronavirus-19. Ebola Screen: Patient negative for fever greater than or equal to 101.5 degrees Fahrenheit, and additional compatible Ebola Virus Disease symptoms Patient denies exposure to infectious person. Patient denies travel to an Ebola-affected area in the 21 days before illness onset. No symptoms or risks identified at this time. Initial Sepsis Screen: Does the patient meet any 2 criteria? No. Patient's initial sepsis screen is negative. Does the patient have a suspected source of infection? No. Patient's initial sepsis screen is negative. Risk Assessment: Do you want to hurt yourself or someone else? Patient reports no desire to harm self or others. Onset of symptoms was September 24, 2020. 16:08 Method Of Arrival: Ambulatory ca1 16:08 Acuity: AMILCAR 3 ca1 Triage Assessment: 16:10 General: Appears in no apparent distress. comfortable, Behavior is cooperative, bp appropriate for age, anxious. Pain: Denies pain. EENT: No deficits noted. Neuro: No deficits noted. Cardiovascular: No deficits noted. Respiratory: No deficits noted. GI: No signs and/or symptoms were reported involving the gastrointestinal system. : No signs and/or symptoms were reported regarding the genitourinary system. Derm: No deficits noted. Musculoskeletal: No deficits noted. Historical: - Allergies: 16:13 No Known Allergies; ca1 - PMHx: 16:13 chronic back pain; Hyperlipidemia; Hypertension; Renal CA; ca1 - PSHx: 16:13 Nephrectomy L; ca1 - Immunization history:: Adult Immunizations up to date, Flu vaccine is not up to date. - Social history:: Smoking status: Patient denies any tobacco usage or history of. - Family history:: not pertinent. Screenin:10 Abuse screen: Denies threats or abuse. Denies injuries from another. Nutritional bp screening: No deficits noted. Tuberculosis screening: No symptoms or risk factors identified. Fall Risk None identified. Assessment: 16:10 General: SEE TRIAGE NOTE. PT REFUSING PIV AND BLOOD DRAW, NOTIFIED. bp 17:04 Reassessment: Patient appears in no apparent distress at this time. No changes from bp previously documented assessment. Patient and/or family updated on plan of care and expected duration. Pain level reassessed. Patient is alert, oriented x 3, equal unlabored respirations, skin warm/dry/pink. PT NOW AMENABLE TO HEALTH CARE ACTIVITIES. 18:05 Reassessment: PT D/C HOME AMBULATORY, DX WITH ESSENTIAL HTN. bp Vital Signs: 16:08 BP 149 / 103; Pulse 74; Resp 18 S; Temp 97.4(TE); Pulse Ox 100% on R/A; Weight 112.04 ca1 kg (R); Height 6 ft. 5 in. (195.58 cm) (R); Pain 0/10; 17:00 BP 151 / 99; Pulse 68; Resp 16; Pulse Ox 100% ; bp 18:00 BP 137 / 95; Pulse 77; Resp 17; Temp 97.5; Pulse Ox 100% ; bp 16:08 Body Mass Index 29.29 (112.04 kg, 195.58 cm) ca1 ED Course: 16:06 Patient arrived in ED. ag5 16:06 Bernard Chaney MD is Private Physician. ag5 16:10 Patient has correct armband on for positive identification. Bed in low position. Call bp light in reach. Side rails up X2. 16:12 Triage completed. ca1 16:13 Arm band placed on right wrist. ca1 16:14 Chino Richards, MILENA is Primary Nurse. bp 16:22 Chapito Rodriguez MD is Attending Physician. layne 16:53 Inserted saline lock: 20 gauge in right antecubital area, using aseptic technique. dh4 Blood collected. 17:35 Bernard Chaney MD is Referral Physician. layne 17:35 Eddy Holland MD is Referral Physician. layne 17:35 Armando Mendez DO is Referral Physician. layne 18:05 No provider procedures requiring assistance completed. IV discontinued, intact, bp bleeding controlled, No redness/swelling at site. Pressure dressing applied. Administered Medications: 17:10 Drug: Norvasc 5 mg Route: PO; bp 18:06 Follow up: Response: No adverse reaction bp Outcome: 17:35 Discharge ordered by . layne 18:05 Discharged to home ambulatory. bp 18:05 Discharged to home 18:05 Condition: stable 18:05 Discharge instructions given to patient, Instructed on discharge instructions, follow up and referral plans. medication usage. 18:11 Patient left the ED. bp Signatures: Chapito Rodriguez MD MD cha Peltier, Brian, RN RN Gladys Lopez RN RN Jair Younger [facility]
[2020-09-24 18:22] LABS: Urine Blood NEGATIVE (NEG); Urine Glucose NEGATIVE (NEG); Urine Protein NEGATIVE (NEG)
[2020-09-24 18:40] VITALS: O2SAT 100
[2020-09-24 18:42] LABS: Blood Morphology Comment NOTED (NOT SEEN); Burr Cells 2+; Platelet Estimate ADEQ
[2020-09-24 18:43] VITALS: BP 137/95; TEMP 97.5
--- NOTE | 2020-09-25 16:10 | EKG ---
Test Date: 2020-09-24 Test Time: 17:02:34 Brand Executive: NANCY MEASUREMENT RESULTS: Intervals: Rate: 68 [place]: 142 QRSD: 74 QT: 380 QTc: 404 [place]: P: 23 [place]: 142 QRS: 7 T: 71 INTERPRETIVE STATEMENTS: Normal sinus rhythm Nonspecific T wave abnormality Abnormal ECG Compared to ECG 09/21/2020 09:49:26 T-wave abnormality now present Electronically Signed On 09-25-20 16:09:24 [employer]OLIO [employer] by Eddy Holland
== END 2020-09-24 18:11 | disposition home or self-care (01) ==
LOC: ER 16:04
DX: I12.9 Hypertensive chronic kidney disease with stage 1 through stage 4 chronic kidney disease, or unspecified chronic kidney disease (principal); N18.9 Chronic kidney disease, unspecified; Z85.53 Personal history of malignant neoplasm of renal pelvis; Z90.5 Acquired absence of kidney
CPT/HCPCS: 36415; 80048; 80076; 81003; 83735; 84484; 85025; 93005; 99283

== ENCOUNTER 2022-03-28 16:01 | Emergency (ER) | payer MEDICARE ==
[2022-03-28] MEDS ORDERED: HYDROCODONE/CHLORPHEN 5 ML/OSYR ONE (17:01)
--- NOTE | 2022-03-28 19:09 | ER ---
Nurse's Notes [facility] [place] Name: Blair Baca Age: 71 yrs Sex: Male : 1950 Arrival Date: 03/28/2022 Time: 16:05 Bed 11 Private MD: Diagnosis: Coronavirus infection, unspecified Presentation: 03/28 16:11 Chief complaint: Patient states: pt reports fever, bilateral eye drainage, and weakness collins since this morning. Coronavirus screen: Vaccine status: Patient reports receiving the 2nd dose of the covid vaccine. Ebola Screen: Patient denies travel to an Ebola-affected area in the 21 days before illness onset. Initial Sepsis Screen: Does the patient meet any 2 criteria? HR > 90 bpm. Does the patient have a suspected source of infection? No. Patient's initial sepsis screen is negative. Risk Assessment: Do you want to hurt yourself or someone else? Patient reports no desire to harm self or others. Onset of symptoms was March 28, 2022. 16:11 Method Of Arrival: Ambulatory collins 16:11 Acuity: AMILCAR 3 collins Triage Assessment: 16:12 General: Appears in no apparent distress. Behavior is calm, cooperative. Pain: collins Complains of pain in right eye and left eye. Historical: - Allergies: 16:12 No Known Allergies; collins - Home Meds: 16:12 hydrochlorothiazide 25 mg Oral tab 1 tab once daily [Active]; lisinopril 20 mg Oral tab collins 1 tab twice daily [Active]; pravastatin 20 mg Oral tab 1 tab once daily [Active]; - PMHx: 16:12 chronic back pain; Hyperlipidemia; Hypertension; Renal CA; collins - Immunization history:: Adult Immunizations up to date. - Social history:: Smoking status: Patient denies any tobacco usage or history of. Screenin:04 Abuse screen: Denies threats or abuse. Nutritional screening: No deficits noted. jb4 Tuberculosis screening: No symptoms or risk factors identified. Fall Risk None identified. Assessment: 17:04 General: Appears in no apparent distress. uncomfortable, Behavior is calm, cooperative, jb4 appropriate for age. Pain: Complains of pain in right eye and left eye Pain does not radiate. Pain currently is 6 out of 10 on a pain scale. Neuro: Level of Consciousness is awake, alert, obeys commands, Oriented to person, place, time, situation. Cardiovascular: Patient's skin is warm and dry. Respiratory: Airway is patent Respiratory effort is even, unlabored, Respiratory pattern is regular, symmetrical. EENT: Throat is clear is reddened with gag reflex present. Derm: Skin is intact, Skin is dry, Skin is normal, Skin temperature is warm. 17:53 Reassessment: Patient appears in no apparent distress at this time. Patient and/or jb4 family updated on plan of care and expected duration. Pain level reassessed. Patient is alert, oriented x 3, equal unlabored respirations, skin warm/dry/pink. Pt took 1g of Tylenol he brought from home. 19:02 Reassessment: Patient appears in no apparent distress at this time. Patient and/or jb4 family updated on plan of care and expected duration. Pain level reassessed. Patient is alert, oriented x 3, equal unlabored respirations, skin warm/dry/pink. Vital Signs: 16:11 BP 129 / 98; Pulse 96; Resp 18; Temp 101.7(O); Pulse Ox 100% ; Weight 105.23 kg; Height collins 6 ft. 5 in. (195.58 cm); 18:05 BP 136 / 86; Pulse 82; Resp 16; Temp 102.7(TE); Pulse Ox 96% on R/A; jb4 19:02 BP 121 / 80; Pulse 80; Resp 16; Temp 101.3(TE); Pulse Ox 98% on R/A; jb4 16:11 Body Mass Index 27.51 (105.23 kg, 195.58 cm) ED Course: 16:05 Patient arrived in ED. jj6 16:12 Triage completed. collins 16:21 Edward Wyatt NP is PHCP. pm1 16:21 Jae Edmonds MD is Attending Physician. pm1 16:55 Geovanny Horn, MILENA is Primary Nurse. jb4 16:55 Group A Streptococcus Rapid Sc Sent. jb4 16:55 SARS-COV-2 RT PCR Sent. jb4 16:55 Influenza Screen (A Sent. jb4 17:04 Patient has correct armband on for positive identification. Bed in low position. Call jb4 light in reach. Side rails up X 1. 19:16 No provider procedures requiring assistance completed. Patient did not have IV access jb4 during this emergency room visit. Administered Medications: 16:55 Drug: Tussionex Pennkinetic ER (chlorpheniramine-hydrocodone) Suspension 5 ml Route: PO;jb4 17:30 Follow up: Response: No adverse reaction; Marked relief of symptoms jb4 Medication: 17:04 VIS not applicable for this client. jb4 Outcome: 19:08 Discharge ordered by MD. pm1 19:16 Discharged to home ambulatory. jb4 19:16 Condition: stable 19:16 Discharge instructions given to patient, Instructed on discharge instructions, follow up and referral plans. medication usage, Demonstrated understanding of instructions, follow-up care, medications, Prescriptions given X 1. 19:17 Patient left the ED. jb4 Signatures: Edward Wyatt NP AEROB[employer] INSTRUCTOR pm1 Geovanny Horn, MILENA RN jb4 Lyn [id number] Zahra Salazar RN RN collins Corrections: (The following items were deleted from the chart) 18:10 18:05 BP 136 / 86; Pulse 82bpm; Resp 16bpm; Pulse Ox 96% RA; jb4 jb4
--- NOTE | 2022-03-28 19:09 | EDPHYS ---
Physician Documentation [facility] Name: Blair Baca Age: 71 yrs Sex: Male : 1950 Arrival Date: 03/28/2022 Time: 16:05 Bed 11 Private MD: ED Physician Jae Edmonds HPI: 03/28 16:31 This 71 yrs old Black Male presents to ER via Ambulatory with complaints of Fever. pm1 16:31 The patient reports fever, that was measured at 102 degrees Fahrenheit. Onset: The pm1 symptoms/episode began/occurred today. Modifying factors: there are no obvious modifying factors, unaware of sick contact. Associated signs and symptoms: Pertinent positives: headache, runny nose, sinus congestion, Bilateral eye tearing, Pertinent negatives: abdominal pain, chest pain, cough, diarrhea, earache, nausea, shortness of breath, sore throat, vomiting. Severity of symptoms: in the emergency department the symptoms have improved Pain is currently a 0 / 10. The patient has not experienced similar symptoms in the past. The patient has not recently seen a physician. Historical: - Allergies: 16:12 No Known Allergies; collins - Home Meds: 16:12 hydrochlorothiazide 25 mg Oral tab 1 tab once daily [Active]; lisinopril 20 mg Oral tab collins 1 tab twice daily [Active]; pravastatin 20 mg Oral tab 1 tab once daily [Active]; - PMHx: 16:12 chronic back pain; Hyperlipidemia; Hypertension; Renal CA; collins - Immunization history:: Adult Immunizations up to date. - Social history:: Smoking status: Patient denies any tobacco usage or history of. ROS: 16:31 Cardiovascular: Negative for chest pain, palpitations, and edema, Respiratory: Negative pm1 for shortness of breath, cough, wheezing, and pleuritic chest pain, Abdomen/GI: Negative for abdominal pain, nausea, vomiting, diarrhea, and constipation, Back: Negative for injury and pain, MS/Extremity: Negative for injury and deformity, Skin: Negative for injury, rash, and discoloration. 16:31 Constitutional: Positive for body aches, fever, Negative for poor PO intake. 16:31 Eyes: Positive for tearing, of the right eye and left eye. 16:31 ENT: Positive for rhinorrhea, sinus congestion, Negative for ear pain. 16:31 Neuro: Positive for headache, Negative for numbness, tingling, weakness. 16:31 All other systems are negative. Exam: 16:31 Constitutional: This is a well developed, well nourished patient who is awake, alert, pm1 and in no acute distress. Head/Face: Normocephalic, atraumatic. 16:31 Neck: Trachea midline, no thyromegaly or masses palpated, and no cervical lymphadenopathy. Supple, full range of motion without nuchal rigidity, or vertebral point tenderness. No Meningismus. 16:31 Back: No spinal tenderness. No costovertebral tenderness. Full range of motion. Skin: Warm, dry with normal turgor. Normal color with no rashes, no lesions, and no evidence of cellulitis. MS/ Extremity: Pulses equal, no cyanosis. Neurovascular intact. Full, normal range of motion. 16:31 Eyes: Periorbital structures: appear normal, Pupils: no acute changes, Extraocular movements: no acute changes, Conjunctiva: tearing noted, bilaterally, Corneas: no acute changes. 16:31 ENT: External ear(s): no acute changes, Ear canal(s): no acute changes, TM's: no acute changes, Mouth: no acute changes, Lips: normal, moist, Oral mucosa: normal, pink and intact, moist, Posterior pharynx: no acute changes, Airway: no evidence of obstruction, patent, Tonsils: are normal in appearance, peritonsillar mass, is not appreciated. 16:31 Cardiovascular: Exam negative for acute changes, Rate: normal, Rhythm: regular, Pulses: no pulse deficits are appreciated, Heart sounds: normal, normal S1and S2, Edema: is not appreciated. 16:31 Respiratory: Exam negative for acute changes, respiratory distress, shortness of breath, Breath sounds: are clear throughout. 16:31 Abdomen/GI: Inspection: abdomen appears normal, Palpation: abdomen is soft and non-tender, in all quadrants. 16:31 Neuro: Exam negative for acute changes, Orientation: is normal, Mentation: is normal, Motor: is normal, moves all fours. Vital Signs: 16:11 BP 129 / 98; Pulse 96; Resp 18; Temp 101.7(O); Pulse Ox 100% ; Weight 105.23 kg; Height collins 6 ft. 5 in. (195.58 cm); 18:05 BP 136 / 86; Pulse 82; Resp 16; Temp 102.7(TE); Pulse Ox 96% on R/A; jb4 19:02 BP 121 / 80; Pulse 80; Resp 16; Temp 101.3(TE); Pulse Ox 98% on R/A; jb4 16:11 Body Mass Index 27.51 (105.23 kg, 195.58 cm) collins MDM: 16:26 Patient medically screened. pm1 19:08 Data reviewed: vital signs. Data interpreted: Pulse oximetry: on room air is 98 %. pm1 Interpretation: normal. Counseling: I had a detailed discussion with the patient and/or guardian regarding: the historical points, exam findings, and any diagnostic results supporting the discharge/admit diagnosis, lab results, the need for outpatient follow up, to return to the emergency department if symptoms worsen or persist or if there are any questions or concerns that arise at home. 03/28 16:31 Order name: COVID-19 SARS RT PCR (Document "Date of Onset" if Symptomatic) pm1 03/28 16:31 Order name: Flu pm1 03/28 16:38 Order name: SARS-COV-2 RT PCR; Complete Time: 18:05 EDMS 03/28 16:38 Order name: Group A Streptococcus Rapid Sc; Complete Time: 17:13 EDMS 03/28 16:38 Order name: Influenza Screen (A ; Complete Time: 17:25 EDMS 03/28 17:14 Order name: Throat Culture EDMS Administered Medications: 16:55 Drug: Tussionex Pennkinetic ER (chlorpheniramine-hydrocodone) Suspension 5 ml Route: PO;jb4 17:30 Follow up: Response: No adverse reaction; Marked relief of symptoms jb4 Disposition Summary: 03/28/22 19:08 Discharge Ordered Location: Home pm1 Problem: new pm1 Symptoms: have improved pm1 Condition: Stable pm1 Diagnosis - Coronavirus infection, unspecified pm1 Followup: pm1 - With: Emergency Department - When: As needed - Reason: Worsening of condition Followup: pm1 - With: Private Physician - When: 2 - 3 days - Reason: Recheck today's complaints, Continuance of care, Re-evaluation by your physician Discharge Instructions: - Discharge Summary Sheet pm1 - COVID-19 pm1 - COVID-19 Frequently Asked Questions pm1 - 10 Things You Can Do to Manage Your COVID-19 Symptoms at Home - [facility] pm1 - COVID-19: Quarantine vs. Isolation - [facility] pm1 Forms: - Medication Reconciliation Form pm1 - Thank You Letter pm1 - Antibiotic Education pm1 - Prescription Opioid Use pm1 Prescriptions: - Guaifenesin AC 10-100 mg/5 mL Oral Liquid - take 10 milliliters by ORAL route every 4 hours As needed; 240 milliliter; pm1 Refills: 0, Product Selection Permitted Signatures: Dispatcher [employer] EDMO Edward Wyatt, V[employer]ON VICE PRESIDENT PAYMENT pm1 Geovanny Horn, RN RN jb4 Zahra Salazar RN RN collins
[2022-03-28 19:24] VITALS: BP 121/80; TEMP 101.3; O2SAT 98
== END 2022-03-28 19:17 | disposition home or self-care (01) ==
LOC: ER 16:01
DX: R50.9 Fever, unspecified (principal); U07.1 COVID-19; R53.1 Weakness; H57.13 Ocular pain, bilateral; E78.2 Mixed hyperlipidemia; I10 Essential (primary) hypertension
CPT/HCPCS: 87070; 87081; 87804; 99283; U0003

== ENCOUNTER 2022-11-15 11:45 | Day surgery (SDC) | payer OTHER ==
--- NOTE | 2022-11-02 11:52 | RAD REPORT ---
EXAM DESCRIPTION: RAD - Chest Pa And Lat (2 Views) - 11/02/2022 11:46 am CLINICAL HISTORY: Pre op pending TURP Chest pain. COMPARISON: Chest Single View dated 09/21/2020; Chest Pa And Lat (2 Views) dated 11/29/2019; Chest Pa And Lat (2 Views) dated 08/24/2019; Abdomen 1 View (KUB) dated 07/01/2019 FINDINGS: The lungs are clear. The heart is normal in size. No displaced fractures. IMPRESSION: No acute or concerning finding suspected.
[2022-11-02 12:02] LABS: Absolute Lymphocytes (CBC) 3.7 K/uL (0.7-4.9); Hematocrit 41.6 % (39.6-49.0); Lymphocytes % 51.1 % (15.3-44.8); MPV 9.1 fL (7.6-11.3); RBC Red Blood Cell Count 4.38 M/uL (4.33-5.43)
[2022-11-02 12:11] LABS: Potassium 4.1 mmol/L (3.5-5.1)
--- NOTE | 2022-11-03 07:57 | EKG ---
Test Date: 2022-11-02 Test Time: 11:24:30 Cripple Cutter: GALO MEASUREMENT RESULTS: Intervals: Rate: 56 AL: 170 QRSD: 82 QT: 396 QTc: 382 [place]: P: 51 AL: 170 QRS: 45 T: 76 INTERPRETIVE STATEMENTS: Sinus bradycardia Otherwise normal ECG Compared to ECG 09/24/2020 17:02:34 Sinus rhythm no longer present T-wave abnormality no longer present Electronically Signed On 11-03-22 07:54:37 CONTROL CLERK REPAIRS by Jarett Flores
[~2022-11-15 11:45] MED LIST: Gentamicin Inj 200 MG in NA CHLORIDE 0.9% 100 ML IV SCH
[2022-11-15] MEDS ORDERED: AMPICILLIN SODIUM 2 GM/VIAL VIAL ONE (12:16)
[2022-11-15] MEDS ORDERED: Ringers Lactate 1,000 ML IV ONE ×2 (12:17→17:08)
[2022-11-15] MEDS ORDERED: FENTANYL CITR 100 MCG/2 ML ONE ×3 (15:44→17:15)
[2022-11-15] MEDS ORDERED: propofoL 200 MG/20 ML VIAL IV ONE (15:45)
[2022-11-15] MEDS ORDERED: LIDOCAINE 1% MPF 5 ML VIAL ONE (15:45)
[2022-11-15] MEDS ORDERED: MIDAZOLAM HCL 2 MG/2 ML INJ ONE (15:45)
[2022-11-15] MEDS ORDERED: NS 0.9% VIAL 10 ML ONE (15:47)
[2022-11-15] MEDS ORDERED: ONDANSETRON 4 MG/2 ML VIAL ONE ×2 (15:56→18:33)
[2022-11-15] MEDS ORDERED: Phenylephrine HCl 10 MG/ML 1 ML VIAL ONE (17:28)
[2022-11-15] MEDS ORDERED: dexAMETHasone 10 MG/ML VIAL ONE (18:33)
[2022-11-15] MEDS: MEPERIDINE HCL 25 MG/ML SYR ONE ×2 (19:00→19:05)
[2022-11-15 19:07] VITALS: TEMP 97
[2022-11-15 19:24] LABS: Hematocrit 38.3 % (39.6-49.0)
[2022-11-15 19:29] VITALS: O2SAT 100
[2022-11-15] MEDS ORDERED: CODEINE 30MG/APAP 300MG TAB PO PRN (19:40)
[2022-11-15] MEDS ORDERED: PHENAZOPYRIDINE 100MG TAB PO ONE ×2 (19:40→20:44)
[2022-11-15] MEDS ORDERED: CODEINE 30MG/APAP 300MG TAB ONE (20:44)
[2022-11-15 21:21] VITALS: BP 152/76
--- NOTE | 2022-11-16 13:53 | OP ---
Surgeon: ORION BAEZ Preoperative Diagnoses: 1.Enlarged prostate/BPH with lower urinary tract obstruction and symptoms. 2.Elevated PSA. Postoperative Diagnoses: 1.Enlarged prostate/BPH with lower urinary tract obstruction and symptoms. 2.Elevated PSA. Principal Procedure: Bipolar transurethral resection of the prostate-extensive, 128 g gland. Indication For Procedure: Mr. Baca presented to the Urology Clinic with bothersome urinary sym ptoms refractory to tamsulosin/Flomax. He had an elevated PSA and was counseled about the risk of ma lignancy associated. A 4Kscore was performed and suggested the risk of malignancy to be around 15% w ith the risk of high-grade malignancy out of that proportion to be about 20%. However, given the sig nificant size of his prostate and the likelihood of inflammation driving the majority of the PSA, he was counseled on the option of proceeding with surgical management of his prostate, recognizing he ma y ultimately require biopsy and definitive treatment if his PSA remains elevated and prostate cancer is subsequently found. He elected to proceed thus with bipolar TURP given the size of his prostate. Other options for care and management were discussed to include the HoLEP. Procedure In Detail: The patient was consented in the preoperative holding area before being transfe rred to the operative suite where general anesthesia was induced. He was given ampicillin 2 g and ge ntamicin 2-3 mg/kg IV antimicrobial prophylaxis. Pneumoboots were provided for DVT prophylaxis. He was placed in the lithotomy position, padded and secured to the table appropriately. His genitalia w ere prepped with Hibiclens and he was draped in standard fashion. The case was begun using urethral sounds to dilate the meatus and fossa navicularis to 30-Grenadian. Then using the visual obturator mitchel g with the 26-Grenadian resectoscope sheath, the urethra was traversed until the bladder was entered. I decompressed the bladder off fluid and urine, and surveyed it. No concerning papillary mucosal lesi ons, foreign bodies or stones were noted. There was intravesical projection of 4 lobes of the prosta te including a median lobe that abutted the trigone within 1 cm of the ureteral orifices. As a resul t, I began the case by switching the visual smelter operator for a bipolar large loop, and I began resecting the intravesical component of the median lobe with the ureteral orifice on the right in direct vision . A similar resection was performed with the left ureteral orifice in direct vision. I then resecte d the remainder of the median lobe intravesically projecting until it was even with the level of the bladder neck. I continued the resection of the median lobe and the elevated median bar all the way d own to the level of the verumontanum, which was about 6 to 7 cm in total prostatic urethral length. Once a nice trough had been created, I continued the resection at the level of the bladder neck on th e left and resected to the anterior zone of the prostate at the bladder neck. I then resected the mi dzone of the prostate on the left side from inferior to superior, anterior zone of the prostate. I t hen resected the apical portion of the prostate resecting the lateral lobar hypertrophy that was inte rdigitating with the right side. Once majority of the left side of the prostate had been resected, I then began resection of his prostate, right side. Of note, Ellik evacuation was required at multipl e points throughout the procedure to remove a significant quantity of prostate chips. He did have si gnificant arterial bleed that would occur at multiple phases throughout the resection and required in termittent fulguration in order to maintain control. I then performed a similar resection starting a t the bladder neck on the right from inferior to anterior, extending to the mid zone of the prostate similarly and then reaching the apex on the right side. Once the majority of the right lateral lobe had similarly been resected, I then turned to cleaning up the residual intraluminal projection of pro state tissue observed with his bladder having been decompressed after Ellik evacuation. Significant additional tissue invaginated into the prostatic urethra in the mid and apical zones of the prostate. So, additional resection was performed bilaterally in these zones extending to the bladder neck as necessary. Fulguration again was required at multiple phase along the process due to bleeding from t he prostate. Finally, once the majority of the active bleeding had been controlled and most of the p rostate chips had been Ellik evacuated from within his bladder, I surveyed the channel created with t he bladder completely decompressed. I then continued to carve any kissing or slightly interdigitatin g apical lateral lobar hypertrophy in order to create a smooth trough from the verumontanum into the bladder without any significant obstruction present. Once that widely patent trough had been created and all prostate chips were removed from within the bladder as observed cystoscopically, I ensured a bsolute hemostasis with the fluid inflow off and the bladder decompressed. Once this was observed, I then backfilled his bladder and removed the resectoscope. I then replaced a 24-Grenadian 3-way Jarvis c atheter with ease into his bladder and placed 30 cc of sterile water in the balloon. The patient was then taken out of the lithotomy position, awakened from general anesthesia, and I placed the cathete r to moderate traction and slow drip CBI where the urine was very light pink. He was then transferre d to a stretcher and then to the recovery room in good condition. Complications: None. Estimated Blood Loss: Approximately 250 cc. Discharge Disposition: He may reasonably follow up in the Urology Clinic on Monday for a voiding tri al. He will be discharged with a prescription for either Cipro or Bactrim for the next 5 days along with some Tylenol with codeine and recommendations for catheter care and maintenance, as well as Pyri dium for burning with urination. JANESSA/MODL Voice ID: [id number] Report ID: [id number]
== END 2022-11-15 21:33 | disposition home or self-care (01) ==
LOC: OR 11:45
PROVIDERS: ATTEND Urology
PROC: 0VT08ZZ Resection of Prostate, Via Natural or Artificial Opening Endoscopic (ICD-10-PCS; principal; 2022-11-15 13:15)
DX: N40.1 Benign prostatic hyperplasia with lower urinary tract symptoms (principal); N13.8 Other obstructive and reflux uropathy; R97.20 Elevated prostate specific antigen [PSA]; I10 Essential (primary) hypertension
CPT/HCPCS: 93005; 87088; 85025; 87086; 80048; 36415 ×2; 85610; 85018; 85014; 71046; 52601; J2704; J2001; J2370; J1580; J3010 ×3; J1100; J2175; A4216; J7120 ×2; J2405 ×2; J0290; 88305; J2250

== ENCOUNTER 2023-03-14 08:47 | Emergency (ER) | payer OTHER ==
--- OUTSIDE RECORDS SUMMARY | 2023-03-14 08:51 | XMS REPORT | Continuity of Care Document ---
:1950 Author Organization [facility] t Address [address] [facility] [place] [address] Care Team Providers Name Role Phone Bernard Chaney Primary Care Physician Bernard Chaney Attending Clinician Unavailable Lani Castro RN Attending Clinician Unavailable JANET ROBISON Attending Clinician Unavailable ADARSH MOHAN Attending Clinician Unavailable PAUL NICHOLS II Attending Clinician Unavailable ADARSH MOHAN Admitting Clinician Unavailable MEHRAN GABRIEL Admitting Clinician Unavailable Payers Payer Name Policy Type Policy Number Effective Date Expiration Date S tere [facility] Medicare 53 [id number] [facility] Complete - [facility] Problems Condition Condition Condition Status Onset Resolution Last Treating Co mments Source Name Details Category Date Date Treatment Clinician Date Renal Renal Disease Active [facility] left mass, left 4-14 Marya kes 00:00: Medical 00 [place] Flank pain Flank pain Disease Active [facility] [place] [id number] 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 - [facility] kidney [facility] [id number] History of Problem C ommon 9104 nephrectom Spirit y, left [facility] [id number] BPH loc w Problem Com mon urin Spirit obs/LUTS [facility] Elevated Elevated Problem Commo n PSA PSA [facility] [id number] 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 [facility] [id number] History of Problem Co mmon renal cell Spirit cancer [facility] Enlarged Enlarged Problem Commo n prostate prostate [facility] Allergies, Adverse Reactions, Alerts Allergy Allergy Status Severity Reaction(s) Onset Inactive Treating Comm ents Source Name Type Date Date Clinician NO KNOWN Drug Active Univers ALLERGIE Class ity [facility] Social History Social Habit Start Date Stop Date Quantity Comments Source History of [facility] - Tobacco Use [facility] Exposure to 2022-04-02 2022-04-12 Not sure University SARS-CoV-2 00:00:00 09:27:00 [place] [facility] Alcohol intake 2017-01-11 2017-01-11 Current drinker of [facility] 00:00:00 00:00:00 alcohol (finding) [facility] Alcohol Comment 2017-01-05 2017-01-05 OCCASSIONALLY [facility] 00:00:00 00:00:00 [facility] Sex Assigned At [birth year] [facility] Marya kes 00:00:00 00:00:00 [facility] Smoking Status Start Date Stop Date Source Tobacco smoking consumption [facility] Never Smoker [facility] Medications Ordered Filled Start Stop Current Ordering Indication Dosage Frequency Signature Comments Components Source Medication Medication Date Date Medication? Clinician (SIG) Name Name pravastatin Yes 20mg QD Take [address] [facility] [address] (PRAVACHOL) 4-22 by mouth Luke s 20 MG 18:25: daily. Medical tablet 12 Center lisinopril Yes 20mg Q.5D Take [address] (PRINIVIL,Z 4-22 by mouth 2 Marya kes ESTRIL) 20 18:25: (two) Medica l MG tablet 12 times Center daily. hydroCHLORO 2017-0 Yes 25mg QD Take [address] thiazide 4-22 by mouth [facility] (HYDRODIURI 18:25: daily. Medi maxi L) 25 MG 12 Center tablet pravastatin 2017-0 Yes 20mg QD Take [address] (PRAVACHOL) 4-22 by mouth Luke s 20 MG 18:25: daily. Medical tablet 12 Center lisinopril 2017-0 Yes 20mg Q.5D Take [address] (PRINIVIL,Z 4-22 by mouth 2 Marya kes ESTRIL) 20 18:25: (two) Medica l MG tablet 12 times Center daily. hydroCHLORO 2017-0 Yes 25mg QD Take [address] [address] thiazide 4-22 by mouth [facility] (HYDRODIURI 18:25: daily. Medi maxi L) 25 MG 12 Center tablet hydroCHLORO 2017-0 Yes 25mg QD Take [address] thiazide 4-22 by mouth [facility] (HYDRODIURI 18:25: daily. Medi maxi L) 25 MG 12 Center tablet pravastatin 2017-0 Yes 20mg QD Take [address] (PRAVACHOL) 4-22 by mouth Luke s 20 MG 18:25: daily. Medical tablet 12 Center lisinopril 2017-0 Yes 20mg Q.5D Take [address] (PRINIVIL,Z 4-22 by mouth 2 Marya kes ESTRIL) 20 18:25: (two) Medica l MG tablet 12 times Center daily. Tamsulosin Tamsulosin No 1{capsu QD Tamsulosin HCl 0.4 MG HCl 0.4 MG le} HCl 0.4 MG Tamsulosin Tamsulosin No 1{capsu QD Tamsulosin HCl 0.4 MG HCl 0.4 MG le} HCl 0.4 MG Lisinopril Lisinopril No 1{table QD Lisinopril 20 MG 20 MG t} 20 MG Tamsulosin Tamsulosin No 1{capsu QD Tamsulosin HCl 0.4 MG HCl 0.4 MG le} HCl 0.4 MG Tamsulosin Tamsulosin No 1{capsu QD Tamsulosin HCl 0.4 MG HCl 0.4 MG le} HCl 0.4 MG Tamsulosin Tamsulosin No 1{capsu QD Tamsulosin HCl 0.4 MG HCl 0.4 MG le} HCl 0.4 MG Tamsulosin Tamsulosin No 1{capsu QD Tamsulosin HCl 0.4 MG HCl 0.4 MG le} HCl 0.4 MG Tamsulosin Tamsulosin No 1{capsu QD Tamsulosin HCl 0.4 MG HCl 0.4 MG le} HCl 0.4 MG Lisinopril Lisinopril No 1{table QD Lisinopril 20 MG 20 MG t} 20 MG Tamsulosin Tamsulosin No 1{capsu QD Tamsulosin HCl 0.4 MG HCl 0.4 MG le} HCl 0.4 MG Lisinopril Lisinopril No 1{table QD Lisinopril 20 MG 20 MG t} 20 MG Tamsulosin Tamsulosin No 1{capsu QD Tamsulosin HCl 0.4 MG HCl 0.4 MG le} HCl 0.4 MG Tamsulosin Tamsulosin No 1{capsu QD Tamsulosin HCl 0.4 MG HCl 0.4 MG le} HCl 0.4 MG Tamsulosin Tamsulosin No 1{capsu QD Tamsulosin HCl 0.4 MG HCl 0.4 MG le} HCl 0.4 MG Lisinopril Lisinopril No 1{table QD Lisinopril 20 MG 20 MG t} 20 MG Tamsulosin Tamsulosin No 1{capsu QD HCl 0.4 MG HCl 0.4 MG le} Lisinopril Lisinopril No 1{table QD 20 MG 20 MG t} Tamsulosin Tamsulosin No 1{capsu QD HCl 0.4 MG HCl 0.4 MG le} Tamsulosin Tamsulosin No 1{capsu QD Tamsulosin HCl 0.4 MG HCl 0.4 MG le} HCl 0.4 MG Lisinopril Lisinopril No 1{table QD Lisinopril 20 MG 20 MG t} 20 MG Tamsulosin Tamsulosin No 1{capsu QD Tamsulosin HCl 0.4 MG HCl 0.4 MG le} HCl 0.4 MG Tamsulosin Tamsulosin No 1{capsu QD Tamsulosin HCl 0.4 MG HCl 0.4 MG le} HCl 0.4 MG Tamsulosin Tamsulosin No 1{capsu QD Tamsulosin HCl 0.4 MG HCl 0.4 MG le} HCl 0.4 MG Tamsulosin Tamsulosin No 1{capsu QD Tamsulosin HCl 0.4 MG HCl 0.4 MG le} HCl 0.4 MG Lisinopril Lisinopril No 1{table QD Lisinopril 20 MG 20 MG t} 20 MG Tamsulosin Tamsulosin No 1{capsu QD Tamsulosin HCl 0.4 MG HCl 0.4 MG le} HCl 0.4 MG Tamsulosin Tamsulosin No 1{capsu QD Tamsulosin HCl 0.4 MG HCl 0.4 MG le} HCl 0.4 MG Lisinopril Lisinopril No 1{table QD Lisinopril 20 MG 20 MG t} 20 MG Tamsulosin Tamsulosin No 1{capsu QD Tamsulosin HCl 0.4 MG HCl 0.4 MG le} HCl 0.4 MG Vital Signs Vital Name Observation Time Observation Value Comments Source height 2022-10-13 11:00:00 77 [in_i] [facility] weight 2022-10-13 11:00:00 228 [lb_av] [facility] temperature 2022-10-13 11:00:00 97.8 [degF] [facility] bmi 2022-10-13 11:00:00 27.03 kg/m2 [facility] oximetry 2022-10-13 11:00:00 99 % [facility] respiratory rate 2022-10-13 11:00:00 18 /min Comm on [facility] blood pressure 2022-10-13 11:00:00 126 mm[Hg] Common [facility] - systolic [facility] blood pressure 2022-10-13 11:00:00 68 mm[Hg] Common [facility] - diastolic [facility] height 2022-09-07 09:30:00 77 [in_i] [facility] weight 2022-09-07 09:30:00 225 [lb_av] [facility] temperature 2022-09-07 09:30:00 97.9 [degF] [facility] bmi 2022-09-07 09:30:00 26.68 kg/m2 Common S pirit - [facility] oximetry 2022-09-07 09:30:00 99 % [facility] respiratory rate 2022-09-07 09:30:00 18 /min Comm on [facility] blood pressure 2022-09-07 09:30:00 157 mm[Hg] Common [facility] - systolic [facility] blood pressure 2022-09-07 09:30:00 82 mm[Hg] Common [facility] - diastolic [facility] bmi 2022-07-20 13:00:00 27.13 [facility]m2 [facility] oximetry 2022-07-20 13:00:00 98 % Common [facility] respiratory rate 2022-07-20 13:00:00 18 /min Comm on [facility] blood pressure 2022-07-20 13:00:00 140 mm[Hg] Common [facility] - systolic [facility] blood pressure 2022-07-20 13:00:00 83 mm[Hg] Common [facility] - diastolic [facility] height 2022-07-20 13:00:00 77 [in_i] [facility] weight 2022-07-20 13:00:00 228.8 [lb_av] [facility] temperature 2022-07-20 13:00:00 98.4 [degF] [facility] height 2021-08-13 10:20:00 77 [in_i] [facility] weight 2021-08-13 10:20:00 240.8 [lb_av] [facility] temperature 2021-08-13 10:20:00 97.6 [degF] Common S pirit [facility] bmi 2021-08-13 10:20:00 28.55 kg/m2 [facility] oximetry 2021-08-13 10:20:00 100 % [facility] blood pressure 2021-08-13 10:20:00 138 mm[Hg] [facility] - systolic [facility] blood pressure 2021-08-13 10:20:00 79 mm[Hg] [facility] - diastolic [facility] height 2021-02-11 11:20:00 77 [in_i] Common S pirit - [facility] weight 2021-02-11 11:20:00 250.6 [lb_av] [facility] - [facility] temperature 2021-02-11 11:20:00 96.8 [degF] Common S pirit - [facility] bmi 2021-02-11 11:20:00 29.71 kg/m2 Common S pirit - [facility] oximetry 2021-02-11 11:20:00 99 % Common S pirit - [facility] blood pressure 2021-02-11 11:20:00 131 mm[Hg] [facility] - systolic [facility] blood pressure 2021-02-11 11:20:00 68 mm[Hg] [facility] - diastolic [facility] height 2020-10-08 13:00:00 77 [in_i] Common S pirit - [facility] weight 2020-10-08 13:00:00 250.6 [lb_av] [facility] - [facility] temperature 2020-10-08 13:00:00 97.8 [degF] Common S pirit - [facility] bmi 2020-10-08 13:00:00 29.71 kg/m2 Common S pirit - [facility] oximetry 2020-10-08 13:00:00 97 % Common S pirit - [facility] blood pressure 2020-10-08 13:00:00 119 mm[Hg] [facility] - systolic [facility] blood pressure 2020-10-08 13:00:00 76 mm[Hg] [facility] - diastolic [facility] height 2020-09-29 09:45:00 77 [in_i] Common S pirit - [facility] weight 2020-09-29 09:45:00 250.6 [lb_av] [facility] - [facility] temperature 2020-09-29 09:45:00 97 [degF] Common [facility] bmi 2020-09-29 09:45:00 29.71 kg/m2 Common S [facility] oximetry 2020-09-29 09:45:00 98 % Common [facility] blood pressure 2020-09-29 09:45:00 133 mm[Hg] Common [facility] - systolic [facility] blood pressure 2020-09-29 09:45:00 85 mm[Hg] Common [facility] - diastolic [facility] Procedures This patient has no known procedures. Encounters Start End Encounter Admission Attending Care Care Encounter Source Date/Time Date/Time Type Type Clinicians Facility Department ID 2022-07-20 Outpatient Chaney, STLMLC STLMLC [id number] Common 12:51:01 Bernard [id number] [facility] 2021-10-20 Outpatient Chaney, STLMLC STLMLC [id number] Common 12:17:49 Bernard [id number] [facility] 2022-10-13 2022-10-13 OFFICE STLMLC STLMLC [id number] Co mmon 00:00:00 00:00:00 VISIT [facility] ESTAB PT - CHI LEVEL [address] [place] [address] 2022-09-07 2022-09-07 OFFICE STLMLC STLMLC [id number] Co mmon 00:00:00 00:00:00 VISIT [facility] ESTAB PT - CHI LEVEL [address] [place] [address] 2022-08-30 2022-08-30 ([place]) Nurse STLC STLC [id number] Common 00:00:00 00:00:00 Visit [facility] 2022-07-20 2022-07-20 OFFICE STLMLC STLMLC [id number] Co mmon 00:00:00 00:00:00 VISIT JULIET Roy it PT LEVEL [address] [place] [address] 2022-04-13 2022-04-13 Telephone GENI Castro [id number] Univers 00:00:00 00:00:00 Lani STILES [id number] it [facility] [id number] Jovany as [id number] [address] 2022-04-12 2022-04-12 Outpatient R [facility] [id number] Univers 09:45:00 09:45:00 JANET carpio [facility] 2021-08-13 2021-08-13 OFFICE STLMLC STLMLC [id number] Co mmon 00:00:00 00:00:00 VISIT EST Spir it PT LEVEL 3 - [facility]I [facility] 2021-02-11 2021-02-11 OFFICE STLMLC STLMLC [id number] Co mmon 00:00:00 00:00:00 VISIT Spirit ESTAB PT - CHI LEVEL 4 [facility] 2020-10-08 2020-10-08 OFFICE STLMLC STLMLC [id number] Co mmon 00:00:00 00:00:00 VISIT Spirit ESTAB PT - CHI LEVEL 4 [facility] 2020-09-29 2020-09-29 OFFICE STLMLC STLMLC [id number] Co mmon 00:00:00 00:00:00 VISIT Spirit ESTAB PT - CHI LEVEL 4 [facility] 2004-11-12 2004-11-12 Emergency X INDONESIAN II, [facility] ERT [id number] Univers 06:36:00 11:05:00 PAUL bolaños [facility] Results Test Description Test Time Test Comments Results Result Sour e Comments TISSUE EXAM 2017-01-17 Surgical Pathology Report 15:47:00 Case: [id number] Sydnie hou Provider: Adarsh Mohan MD Ordering Provider: Adarsh Mohan MD Ordering Location: [address] Collected: 01/10/2017 1543 Service Pathologist: Saumya [...] SYNOPTIC REPORT Signing Pathologist Direct Phone Line: [phone] tumor cells stain positive for PAX-8, AMACR, [...] Involved: Specify: 0 Distant Metastasis (pM): Not [id number]; 28847; 35839 X 3Left renal massLeft kidney, spleen, tail [...] margins; A2, parallel pancreatic resection margin; A3-A4, hardware supplies sales representative sections of mass with adherent spleen; A5-A8, hardware supplies sales representative sections of mass with adherent pancreas; A9-A14, hardware supplies sales representative sections of mass with renal parenchyma; A15-A24, additional hardware supplies sales representative sections of mass; A25-A26, hardware supplies sales representative sections of pancreas; A27-A28, hardware supplies sales representative sections of adrenal gland; A29-A30, hardware supplies sales representative sections of spleen; A31, accessory spleen; A32, hardware supplies sales representative section of uninvolved kidney with pelvis and caliceal system; A33, hardware supplies sales representative section of uninvolved kidney; A34, [...] developed and its performance characteristics determined by [facility], Pathology Laboratory. It has not been cleared [...] = 1095) No anaerobes isolated HEMOGLOBIN AND [id number] 14:55:00 Test Item Value Reference Range Interpretation [...] = 413) 0.00SURGICALLY OBTAINED CULTURE + GRAM [id number] 23:39:00 Test Item Value Reference Range Interpretation Comments CULTURE (BEAKER) (test code No growth = 1095) GRAM STAIN RESULT (BEAKER) 3+ WBCs (test code = 1123) GRAM STAIN RESULT (BEAKER) No organisms seen (test code = 48762) AMYLASE, BODY [id number] 04:49:00 Test Item Value Reference Range Interpretation [...] not been validated for this type of specimen.[id number] 06:54:00 Test Item Value Reference Range Interpretation Comments POTASSIUM (BEAKER) 3.8 meq/L 3.5-5.1 Specimen slightly (test code = 379) hemolyzed BASIC METABOLIC [id number] 06:54:00 Test Item Value Reference Range Interpretation [...] APPLICABLE FOR DIALYSIS PATIEN TS. HEMOGLOBIN AND [id number] 06:53:00 Test Item Value Reference Range Interpretation Comments HEMOGLOBIN (BEAKER) (test code = 12.1 GM/DL 13.0-16.8 L 410) HEMATOCRIT (BEAKER) (test code = 37.8 % 40.0-50.0 L 411) [id number] 14:34:00Medical Cytology Report Case: [id number] Authorizing Provider: Adarsh Mohan MD Ordering Provider: Adarsh Mohan MD Ordering Location: [address] Collected: 01/10/2017 1147 Service Pathologist: Catrachito Hernandez, Received: 01/10/2017 1543 Specimen: Kidney, Left LEFT RENAL MASS ASPIRATE (CYTOSPINS AND CELL BLOCK): - NEGATIVE FOR MALIGNANT CELLS Signing Pathologist Direct Phone Line: [phone] cytospins and radha block show mostly old blood elements with no viable epithelial cells present.23186, [id number] cm left renal mass, flank painLEFT RENAL MASS ASPIRATE (CYTOSPINS AND CELL BLOCK)22 mls bloody; 4 cytospins, cell blockCollected: [id number]: [id number] [facility], Department of Pathology, [address] [place] [address], [facility], [facility], [address] [place] [address], [place] [address], FOARB [id number] 12:12:00 Test Item Value Reference Range Interpretation Comments CULTURE (BEAKER) (test 10-19,000 col/mL skin code = 1095) lux AMYLASE, BODY [id number] 07:22:00 Test Item Value Reference Range Interpretation Comments AMYLASE FLUID (BEAKER) (test code = 6125 U/L 350) Absence of reference range indicates that normals have not been defined.Assay performance has not been validated for this type of specimen.CBC W/PLT COUNT & AUTO [id number] 06:40:00 Test Item Value Reference Range Interpretation [...] 0.00-0.20 (test code = 417) 0.00BASIC METABOLIC [id number] 05:56:00 Test Item Value Reference Range Interpretation [...] APPLICABLE FOR DIALYSIS PATIEN TS. BASIC METABOLIC [id number] 17:46:00 Test Item Value Reference Range Interpretation [...] PATIEN TS. CBC W/PLT COUNT & AUTO [id number] 17:28:00 Test Item Value Reference Range Interpretation [...] L 0.00-0.20 (test code = 417) 0.00POCT-GLUCOSE [id number] 08:00:00 Test Item Value Reference Range Interpretation Comments POC-GLUCOSE METER 109 mg/dL 70-110 TESTED AT [facility] 6720 (BEAKER) (test code = SHANI [place] 1538) [address] HEPATIC FUNCTION [id number] 04:56:00 Test Item Value Reference Range Interpretation [...] = 16 U/L 6-55 347) BASIC METABOLIC [id number] 04:56:00 Test Item Value Reference Range Interpretation [...] PATIEN TS. CBC W/PLT COUNT & AUTO [id number] 04:46:00 Test Item Value Reference Range Interpretation [...] K/ L 0.00-0.20 (test code = 417) [id number] 04:45:00 Test Item Value Reference Range Interpretation Comments PROTIME (BEAKER) (test code = 14.5 seconds 11.7-14.7 759) INR (BEAKER) (test code = 370) 1.1 <=5.9 PARTIAL THROMBOPLASTIN TIME 27.7 seconds 22.5-36.0 (BEAKER) (test code = 760) RECOMMENDED COUMADIN/WARFARIN INR THERAPY RANGESSTANDARD DOSE: 2.0 - 3.0 Includes: PROPHYLAXIS for venous thrombosis, systemic embolization; TREATMENT for venous thrombosis and/or pulmonary embolus.HIGH RISK: Target INR is 2.5-3.5 for patients with mechanical heart valves.URINALYSIS W/ [id number] 04:29:00 Test Item Value Reference Range Interpretation [...] 520) SOURCE(BEAKER) (test code = Urine, Voided 0845)
[2023-03-14] MEDS ORDERED: ASPIRIN 81 MG CHEWABLE TABLET ONE (09:16)
[2023-03-14] MEDS ORDERED: MORPHINE 2 MG/ML SYR ONE (09:16)
[2023-03-14 09:18] LABS: Absolute Lymphocytes (CBC) 3.3 K/uL (0.7-4.9); Hematocrit 40.7 % (39.6-49.0); Lymphocytes % 50.7 % (15.3-44.8); MCV 92.7 fL (80-100); MPV 9.4 fL (7.6-11.3); RBC Red Blood Cell Count 4.39 M/uL (4.33-5.43)
[2023-03-14 09:37] LABS: Albumin 3.7 g/dL (3.4-5.0); Bilirubin Direct 0.1 mg/dL (0-0.2); Bilirubin Indirect, Calculated 0.2 mg/dL (0.2-0.8); Bilirubin Total 0.3 mg/dL (0.2-1.0); Magnesium 2.1 mg/dL (1.6-2.4); Potassium 4.2 mEq/L (3.5-5.1); Protein, Total 7.7 g/dL (6.4-8.2); Troponin High Sensitivity 8.7 pg/mL (<58.9)
--- NOTE | 2023-03-14 11:05 | RAD REPORT ---
EXAM DESCRIPTION: RADChest Single View03/14/2023 10:19 am CLINICAL HISTORY: CHEST PAIN COMPARISON: Chest Pa And Lat (2 Views) dated 11/02/2022; Chest Single View dated 09/21/2020; Chest Pa And Lat (2 Views) dated 11/29/2019; Chest Pa And Lat (2 Views) dated 08/24/2019 TECHNIQUE: Portable AP view of the chest. FINDINGS: The lungs are clear. No pneumothorax or effusion. The mediastinal contours are unremarkab le, with stable aortic tortuosity. IMPRESSION: No acute cardiopulmonary process.
--- NOTE | 2023-03-14 11:09 | RAD REPORT ---
EXAM DESCRIPTION: CT - Thorax Wo Con - 03/14/2023 10:45 am CLINICAL HISTORY: CHEST PAIN COMPARISON: Chest Abd Pelvis Wo Con dated 08/04/2022; Chest Single View dated 03/14/2023 TECHNIQUE: Axial thin cut images of the chest were obtained without IV contrast. Multiplanar reforma ts were generated and reviewed. All CT scans are performed using dose optimization technique as appropriate and may include automated exposure control or mA/KV adjustment according to patient size. FINDINGS: No mass or infiltrate in the lung parenchyma. No pleural thickening or pleural effusion. N o pneumothorax. No abnormal mediastinal or hilar masses or lymphadenopathy seen. Ectasia of the ascending thoracic ao rta measuring 4.3 centimeter in greatest caliber, stable. No suspicion pulmonary artery findings. Ass essment is limited in the absence of IV contrast. No chest wall mass or abnormal axillary lymphadenopathy. Evaluation of the solid abdominal structures reveals no suspicious findings. Sequelae of left nephrec irish again seen. IMPRESSION: No acute process within the chest. Stable ectasia of the ascending thoracic aorta.
--- NOTE | 2023-03-14 11:45 | ER ---
Nurse's Notes [facility] Name: Blair Baca Age: 72 yrs Sex: Male : 1950 Arrival Date: 03/14/2023 Time: 08:47 Bed 4 Private MD: Bernard Chaney E Diagnosis: Chest pain, unspecified Presentation: 03/14 08:55 Chief complaint: Patient states: L sided CP for a month. L arm numbness at times. ll1 Coronavirus screen: Vaccine status: Patient reports receiving the 2nd dose of the covid vaccine. Client denies travel out of the [place] in the last 14 days. At this time, the client does not indicate any symptoms associated with coronavirus-19. Ebola Screen: Patient denies travel to an Ebola-affected area in the 21 days before illness onset. Initial Sepsis Screen: Does the patient meet any 2 criteria? No. Patient's initial sepsis screen is negative. Does the patient have a suspected source of infection? No. Patient's initial sepsis screen is negative. Risk Assessment: Do you want to hurt yourself or someone else? Patient reports no desire to harm self or others. Onset of symptoms was February 11, 2023. 08:55 Method Of Arrival: Ambulatory ll1 08:55 Acuity: AMILCAR 3 ll1 Triage Assessment: 08:56 General: Appears in no apparent distress. Behavior is calm, cooperative, appropriate ll1 for age. Pain: Complains of pain in L chest Quality of pain is described as aching. Cardiovascular: Reports chest pain. Historical: - Allergies: 08:54 No Known Allergies; ll1 - PMHx: 08:54 chronic back pain; Hyperlipidemia; Hypertension; Renal CA; ll1 - PSHx: 08:54 1 kidney removed; prostate SX; ll1 - Immunization history:: Adult Immunizations up to date. - Social history:: Smoking status: Patient denies any tobacco usage or history of. Screenin:59 [facility] ED Fall Risk Assessment (Adult) History of falling in the last 3 months, cm10 including since admission No falls in past 3 months (0 pts) Confusion or Disorientation No (0 pts) Intoxicated or Sedated No (0 pts) Impaired Gait No (0 pts) Mobility Assist Device Used No (0 pt) Altered Elimination No (0 pt) Score/Fall Risk Level 0 - 2 = Low Risk. Abuse screen: Denies threats or abuse. Denies injuries from another. Nutritional screening: No deficits noted. Tuberculosis screening: No symptoms or risk factors identified. Assessment: 08:57 General: Appears in no apparent distress. comfortable, Behavior is calm, cooperative. cm10 Pain: Complains of pain in Left chest pain Pain does not radiate. Pain currently is 3 out of 10 on a pain scale. Pain began 1 month Is intermittent. Neuro: No deficits noted. Level of Consciousness is awake, alert, Oriented to person, place, time, situation. Cardiovascular: No deficits noted. Heart tones present Capillary refill < 3 seconds Chest pain is described as mild. Cardiovascular: Rhythm is regular. Respiratory: Airway is patent Respiratory effort is even, unlabored, Respiratory pattern is regular, symmetrical. Respiratory: Breath sounds are clear bilaterally. 10:18 Reassessment: No changes from previously documented assessment. Patient and/or family ll1 updated on plan of care and expected duration. Pain level reassessed. 11:36 Reassessment: No changes from previously documented assessment. gait steady to restroom.ll1 Vital Signs: 08:55 BP 157 / 91; Pulse 60; Resp 16; Temp 98.4; Pulse Ox 100% ; Weight 101.6 kg; Height 6 ll1 ft. 5 in. ; Pain 3/10; 09:35 BP 151 / 89; Pulse 57; Resp 17; Pulse Ox 100% on R/A; cm10 12:02 BP 152 / 97; Pulse 55; Resp 16; Pulse Ox 100% ; Pain 0/10; ll1 08:55 Body Mass Index 26.56 (101.60 kg, 195.58 cm) ll1 08:55 Pain Scale: Adult ll1 12:02 Pain Scale: Adult ll1 ED Course: 08:48 Patient arrived in ED. am2 08:48 Bernard Chaney MD is Private Physician. am2 08:50 Arm band placed on Patient placed in an exam room, on a stretcher. ll1 08:54 Anum Fan RN is Primary Nurse. ll1 08:56 Triage completed. ll1 08:56 Primary Nurse role handed off by Anum Fan RN cm10 08:56 Feli Brennan RN is Primary Nurse. cm10 08:58 Chapito Bedoya PA is PHCP. cp 08:58 Jae Edmonds MD is Attending Physician. cp 08:58 Initial lab(s) drawn, by me, held in ED. EKG done, by ED staff. Inserted saline lock: cm10 20 gauge in right antecubital area, using aseptic technique. Blood collected. 08:59 Nurse Practitioner and/or Physician High Lighter to see patient. cm10 08:59 Patient maintains SpO2 saturation greater than 95% on room air. cm10 09:00 Patient has correct armband on for positive identification. Bed in low position. Call cm10 light in reach. Side rails up X2. night monitor on. Pulse ox on. NIBP on. 09:12 Basic Metabolic Panel Sent. cm10 09:12 CBC with Diff Sent. cm10 09:13 LFT's Sent. cm10 09:13 Magnesium Sent. cm10 09:13 NT PRO-BNP Sent. cm10 09:13 PT-INR Sent. cm10 09:13 Troponin HS Sent. cm10 10:21 XRAY Chest (1 view) In Process Unspecified. EDMS 10:46 CT Chest Wo Con In Process Unspecified. EDMS 11:44 Jarett Flores MD is Referral Physician. cp 12:03 No provider procedures requiring assistance completed. IV discontinued, intact, ll1 bleeding controlled, No redness/swelling at site. Pressure dressing applied. Administered Medications: 09:14 Drug: Aspirin PO Chewable Tablet 324 mg Route: PO; ll1 09:41 Follow up: Response: No adverse reaction cm10 09:14 Not Given (Patient Refused): morphine IVP or IV 2 mg IVP once over 4 mins ll1 Medication: 09:00 VIS not applicable for this client. cm10 Outcome: 11:45 Discharge ordered by . cp 12:03 Discharged to home ambulatory. ll1 12:03 Condition: stable 12:03 Discharge instructions given to patient, Instructed on discharge instructions, follow up and referral plans. Demonstrated understanding of instructions, follow-up care. 12:03 Patient left the ED. ll1 Signatures: Dispatcher [employer] EDMS Chapito Bedoya PA PA cp Moreno, Amanda am2 Anum Fan, RN RN ll1 Feli Brennan RN RN cm10
--- NOTE | 2023-03-14 11:45 | EDPHYS ---
Physician Documentation [facility] Name: Blair Baca Age: 72 yrs Sex: Male : 1950 Arrival Date: 03/14/2023 Time: 08:47 Bed 4 Private MD: Bernard Chaney E ED Physician Jae Edmonds HPI: 03/14 09:03 This 72 yrs old Black Male presents to ER via Ambulatory with complaints of Chest Pain, cp Numbness. 09:03 The patient or guardian reports chest pain that is located primarily in the anterior cp chest wall, left. 09:03 Onset: 1 month(s) ago. The pain does not radiate. Associated signs and symptoms: cp Pertinent positives: left arm and left hand numbness/tingling, Pertinent negatives: abdominal pain, cough, diaphoresis, shortness of breath, syncope. Duration: The patient or guardian reports multiple episodes, that are intermittent. Modifying factors: the symptoms are aggravated by nothing. 09:03 The chest pain is described as aching. cp Historical: - Allergies: 08:54 No Known Allergies; ll1 - PMHx: 08:54 chronic back pain; Hyperlipidemia; Hypertension; Renal CA; ll1 - PSHx: 08:54 1 kidney removed; prostate SX; ll1 - Immunization history:: Adult Immunizations up to date. - Social history:: Smoking status: Patient denies any tobacco usage or history of. ROS: 09:05 Constitutional: Negative for body aches, chills, fever, poor PO intake. cp 09:05 Cardiovascular: Positive for chest pain, of the left side chest. cp Exam: 09:00 ECG was reviewed by the Attending Physician. cp 09:08 Constitutional: The patient appears in no acute distress, alert, awake, comfortable, cp non-diaphoretic, non-toxic, well developed, well nourished. 09:08 Head/Face: Normocephalic, atraumatic. cp 09:08 Eyes: Periorbital structures: appear normal, Conjunctiva: normal, no exudate, no injection, Sclera: no appreciated abnormality, Lids and lashes: appear normal, bilaterally. 09:08 ENT: External ear(s): are unremarkable, Nose: is normal, Mouth: is normal, Posterior pharynx: is normal, airway is patent, no erythema, no exudate. 09:08 Neck: ROM/movement: is normal, is supple, without pain, no range of motions limitations. 09:08 Chest/axilla: Inspection: normal. 09:08 Cardiovascular: Rate: normal, Rhythm: regular, Edema: ankle edema, that is mild, JVD: is not appreciated. 09:08 Respiratory: the patient does not display signs of respiratory distress, Respirations: normal, no use of accessory muscles, no retractions, labored breathing, is not present, Breath sounds: are clear throughout, no decreased breath sounds, no stridor, no wheezing. 09:08 Abdomen/GI: Inspection: abdomen appears normal, Bowel sounds: active, all quadrants, Palpation: abdomen is soft and non-tender, in all quadrants. 09:08 Back: pain, is absent, ROM is normal. 09:08 Neuro: Orientation: to person, place \T\ time. Mentation: is normal, Motor: moves all fours, strength is normal. Vital Signs: 08:55 BP 157 / 91; Pulse 60; Resp 16; Temp 98.4; Pulse Ox 100% ; Weight 101.6 kg; Height 6 ll1 ft. 5 in. ; Pain 3/10; 09:35 BP 151 / 89; Pulse 57; Resp 17; Pulse Ox 100% on R/A; cm10 12:02 BP 152 / 97; Pulse 55; Resp 16; Pulse Ox 100% ; Pain 0/10; ll1 08:55 Body Mass Index 26.56 (101.60 kg, 195.58 cm) ll1 08:55 Pain Scale: Adult ll1 12:02 Pain Scale: Adult ll1 MDM: 09:04 Patient medically screened. cp 10:00 Differential diagnosis: abnormal EKG, acute myocardial infarction, cholecystitis, cp Cholelithiasis pancreatitis, pericarditis, pneumonia, pneumothorax, pulmonary embolus, stable angina, thoracic aortic disection, unstable angina. 11:43 The patient was given aspirin in the Emergency Department. Data reviewed: vital signs, cp nurses notes, lab test result(s), EKG, radiologic studies, CT scan, plain films. ED course: Discussed results of today's testing and admission offered with cardiology consult. Patient requesting discharge to home and to f/u outpatient. 11:45 Consideration of Admission/Observation Escalation of care including cp admission/observation considered. 11:45 I considered the following discharge prescriptions or medication management in the emergency department Medications were administered in the Emergency Department. See MAR. Independent interpretation of the following test(s) in the Emergency Department EKG: See my EKG interpretation above. Care significantly affected by the following chronic conditions: Hypertension, Cancer. Counseling: I had a detailed discussion with the patient and/or guardian regarding: the historical points, exam findings, and any diagnostic results supporting the discharge/admit diagnosis, lab results, radiology results, the need for outpatient follow up, a grey washer. 03/14 09:03 Order name: Basic Metabolic Panel; Complete Time: 09:51 03/14 09:51 Interpretation: Normal except: CRE 1.33; GFR 58. 03/14 09:03 Order name: CBC with Diff; Complete Time: 09:51 03/14 09:51 Interpretation: Normal except: HGB 13.3; JESSICA% 28.2; LYM% 50.7; EOSINOPHIL % 8.2. 03/14 09:03 Order name: LFT's; Complete Time: 09:51 03/14 09:52 Interpretation: Normal except: GLOB 4.0; A/G 0.9. 03/14 09:03 Order name: Magnesium; Complete Time: 09:51 03/14 09:03 Order name: NT PRO-BNP; Complete Time: 09:51 03/14 09:03 Order name: PT-INR; Complete Time: 09:51 03/14 09:03 Order name: Troponin HS; Complete Time: 09:51 03/14 09:52 Interpretation: Troponin HS 8.7; Reviewed. 03/14 09:03 Order name: XRAY Chest (1 view); Complete Time: 11:12 03/14 11:12 Interpretation: Report review. 03/14 10:29 Order name: CT Chest Wo Con; Complete Time: 11:12 03/14 11:13 Interpretation: Report reviewed. 03/14 09:03 Order name: EKG; Complete Time: 09:04 03/14 09:03 Order name: Cardiac monitoring; Complete Time: 09:06 03/14 09:03 Order name: EKG - Nurse/Tech; Complete Time: 09:06 03/14 09:03 Order name: IV Saline Lock; Complete Time: 09:06 cp 03/14 09:03 Order name: Labs collected and sent; Complete Time: : cp 03/14 09:03 Order name: O2 Per Protocol; Complete Time: : cp 03/14 09:03 Order name: O2 Sat Monitoring; Complete Time: : cp EC:00 Rate is 59 beats/min. Rhythm is regular. OH interval is normal. QRS interval is normal. cp QT interval is normal. T waves are Inverted in lead aVR. Interpreted by me. Reviewed by me. Administered Medications: 09:14 Drug: Aspirin PO Chewable Tablet 324 mg Route: PO; ll1 09:41 Follow up: Response: No adverse reaction cm10 09:14 Not Given (Patient Refused): morphine IVP or IV 2 mg IVP once over 4 mins ll1 Disposition: 12:11 Co-signature as Attending Physician, Jae Edmonds MD I agree with the assessment and kdr plan of care. Disposition Summary: 03/14/23 11:45 Discharge Ordered Location: Home cp Problem: new cp Symptoms: have improved cp Condition: Stable cp Diagnosis - Chest pain, unspecified cp Followup: cp - With: Jarett Flores MD - When: 2 - 3 days - Reason: Recheck today's complaints Discharge Instructions: - Discharge Summary Sheet cp - Nonspecific Chest Pain, Adult cp - Aspirin and Your Heart cp Forms: - Medication Reconciliation Form cp - Thank You Letter cp - Antibiotic Education cp - Prescription Opioid Use cp Signatures: Dispatcher [employer] EDJae Mariano MD MD kdr Chapito Bedoya PA PA cp Anum Fan RN RN 1 Feli Brennan RN cm10 Corrections: (The following items were deleted from the chart) 03/15 08:53 03/14 09:03 The patient or guardian reports chest pain that is located primarily in the cp substernal area, cp
[2023-03-14 12:45] VITALS: TEMP 98.1
[2023-03-14 12:47] VITALS: BP 131/60; O2SAT 97
--- NOTE | 2023-03-15 19:13 | EKG ---
Test Date: 2023-03-14 Test Time: 08:54:16 Wheel Alignment Technician: GABINO MEASUREMENT RESULTS: Intervals: Rate: 59 NV: 174 QRSD: 80 QT: 404 QTc: 399 [place]: P: 64 NV: 174 QRS: 50 T: 68 INTERPRETIVE STATEMENTS: Sinus bradycardia with sinus arrhythmia Otherwise normal ECG Compared to ECG 11/02/2022 11:24:30 No significant changes Electronically Signed On 03-15-23 19:10:27 CDT by Jarett Flores
== END 2023-03-14 12:03 | disposition home or self-care (01) ==
LOC: ER 08:47
DX: R07.89 Other chest pain (principal); R20.0 Anesthesia of skin; I10 Essential (primary) hypertension; E78.5 Hyperlipidemia, unspecified
CPT/HCPCS: 36415; 71045; 71250; 80048; 80076; 83735; 83880; 84484; 85025; 85610; 93005; 99285; J2270

== ENCOUNTER 2025-01-17 12:31 | Emergency (ER) | payer OTHER ==
[2025-01-17 13:59] LABS: Influenza A Ag Negative; Influenza B Ag Negative; SARS-CoV-2 Antigen Rapid Res Negative (Negative)
--- NOTE | 2025-01-17 14:19 | RAD REPORT ---
EXAMINATION: TWO VIEW CHEST XR CLINICAL INDICATION: Male, 74 years old. Congestion;Cough Bed Name: [facility] TECHNIQUE: 2 view radiographs of the chest were performed. COMPARISON: 02/10/2024 FINDINGS: The lungs are well inflated and clear. No pneumothorax or sizable effusion. The heart is normal in si ze. Mediastinal contours are unremarkable. IMPRESSION: No acute or significant abnormalities.
--- NOTE | 2025-01-17 14:21 | EDPHYS ---
Physician Documentation [facility] Name: Blair Baca Age: 74 yrs Sex: Male : 1950 Arrival Date: 01/17/2025 Time: 12:31 Bed IW1 Private MD: ED Physician Chapito Rodriguez HPI: 01/17 13:57 This 74 yrs old Black Male presents to ER via Ambulatory with complaints of Fever. dr5 13:59 Patient is a 74-year-old male with history of chronic back pain, hyperlipidemia, dr5 hypertension coming in with sore throat, cough, congestion that started this morning. Patient reports he had a fever of 100.2 that he checked this morning. Patient reports taking Tylenol which helped his pain and fever. Patient denies chest pain, shortness of breath, dysuria, abdominal pain, nausea vomiting or diarrhea... Historical: - Allergies: 12:48 No Known Allergies; ld1 - PMHx: 12:48 chronic back pain; Hyperlipidemia; Hypertension; Renal CA; ld1 - PSHx: 12:48 1 kidney removed; prostate sx; ld1 - Immunization history:: Adult Immunizations up to date. - Infectious Disease History:: Denies. - Social history:: Smoking status: Patient denies any tobacco usage or history of. ROS: 13:59 Constitutional: as per hpi dr5 Exam: 14:38 Constitutional: This is a well developed, well nourished patient who is awake, alert, dr5 and in no acute distress. Head/Face: Normocephalic, atraumatic. Eyes: Pupils equal round and reactive to light, extra-ocular motions intact. Lids and lashes normal. Conjunctiva and sclera are non-icteric and not injected. Cornea within normal limits. Periorbital areas with no swelling, redness, or edema. Neck: Trachea midline, no thyromegaly or masses palpated, and no cervical lymphadenopathy. Supple, full range of motion without nuchal rigidity, or vertebral point tenderness. No Meningismus. Chest/axilla: Normal chest wall appearance and motion. Nontender with no deformity. No lesions are appreciated. Cardiovascular: Regular rate and rhythm with a normal S1 and S2. Normal PMI, no JVD. No pulse deficits. Respiratory: Lungs have equal breath sounds bilaterally, clear to auscultation. No rales, rhonchi or wheezes noted. No increased work of breathing, no retractions or nasal flaring. Back: No spinal tenderness. No costovertebral tenderness. Full range of motion. Skin: Warm, dry with normal turgor. Normal color with no rashes, no lesions, and no evidence of cellulitis. MS/ Extremity: Pulses equal, no cyanosis. Neurovascular intact. Full, normal range of motion. Neuro: Awake and alert, GCS 15, oriented to person, place, time, and situation. Cranial nerves II-XII grossly intact. Motor strength 5/5 in all extremities. Sensory grossly intact. Cerebellar exam normal. Normal gait. Vital Signs: 12:46 BP 163 / 101; Pulse 67; Resp 18; Temp 98.8(O); Pulse Ox 99% on R/A; Weight 104.33 kg; ld1 Height 6 ft. 5 in. ; Pain 0/10; 14:33 BP 149 / 96; Pulse 70; Resp 18; Pulse Ox 99% on R/A; ld1 12:46 Body Mass Index 27.27 (104.33 kg, 195.58 cm) ld1 12:46 Pain Scale: Adult ld1 MDM: 13:00 Medical Screening Exam initiated dr5 14:38 Differential diagnosis: viral Infection, bacterial infection, pneumonia. Data reviewed: dr5 vital signs, nurses notes. Care significantly affected by the following chronic conditions: Hyperlipidemia, hypertension, chronic back pain. Care significantly affected by the following Social Determinants of Health: Poor access to healthcare and/or lack of insurance, Poor access to transportation, Problems related to employment. Counseling: I had a detailed discussion with the patient and/or guardian regarding the historical points, exam findings, and any diagnostic results supporting the discharge/admit diagnosis, the presence of at least one elevated blood pressure reading (>120/80) during this emergency department visit, radiology results, the need for outpatient follow up, for definitive care, a family practitioner, to return to the emergency department if symptoms worsen or persist or if there are any questions or concerns that arise at home. ED course: Patient reports he is feeling fine and does not have any complaints at this time. Chest x-ray did not reveal any pneumonia. Will give medications for symptom treatment for viral upper respiratory infection. Patient reports he also wants to follow-up with his doctor on Monday and not have blood work done today. All questions answered. Patient will follow-up on Monday with his doctor.. 01/17 13:05 Order name: COVID-19 Ag + Flu A+B Ag; Complete Time: 14:10 dr5 01/17 13:05 Order name: Chest Pa And Lat (2 Views) XRAY; Complete Time: 14:20 dr5 Administered Medications: 14:33 Not Given (Patient Refused): [id number] mg PO once ld1 Disposition: 15:51 Co-signature as Attending Physician, Chapito Rodriguez MD I agree with the assessment and layne plan of care. Disposition Summary: 01/17/25 14:21 Discharge Ordered Notes: Location: Home dr5 Condition: Stable dr5 Diagnosis - Acute upper respiratory infection, unspecified dr5 Followup: dr5 - With: Emergency Department - When: As needed - Reason: Worsening of condition Followup: dr5 - With: Private Physician - When: 1 - 2 days - Reason: Recheck today's complaints, Continuance of care, Re-evaluation by your physician Discharge Instructions: - Discharge Summary Sheet dr5 - Upper Respiratory Infection, Adult dr5 Forms: - Medication Reconciliation Form dr5 - Patient Portal Instructions dr5 - Leadership Thank You Letter dr5 Prescriptions: - Bromfed DM 2-30-10 mg/5 mL Oral syrup - administer 5 milliliter ORAL route every 4 to 6 hours As needed as needed for dr5 allergy symptoms; 240 milliliter; Refills: 0, Product Selection Permitted - Medrol (Higinio) 4 mg Oral Tablets, Dose Pack - take 1 tablet ORAL route as directed - follow package instructions; 1 packet; dr5 Refills: 0, Product Selection Permitted - benzonatate 100 mg Oral capsule - take 1 capsule ORAL route 3 times per day As needed; 30 capsule; Refills: 0, dr5 Product Selection Permitted Signatures: Dispatcher [employer] Chapito Mooney MD MD cha Sims, Lauren, RN RN ld1 Abilio Edwards, ACCOUNTS ADJUSTABLE CLERK-C ACCOUNTS ADJUSTABLE CLERK-Cdr5
--- NOTE | 2025-01-17 14:21 | ER ---
Nurse's Notes [facility] Name: Blair Baca Age: 74 yrs Sex: Male : 1950 Arrival Date: 01/17/2025 Time: 12:31 Bed IW1 Private MD: Diagnosis: Acute upper respiratory infection, unspecified Presentation: 01/17 12:46 Chief complaint: Patient states: Fever since this morning, cough congestion. Denies ld1 pain. Burning with urination. Flank pain. Coronavirus screen: At this time, the client does not indicate any symptoms associated with coronavirus-19. Ebola Screen: No symptoms or risks identified at this time. Initial Sepsis Screen: Does the patient meet any 2 criteria? No. Patient's initial sepsis screen is negative. Does the patient have a suspected source of infection? No. Patient's initial sepsis screen is negative. Risk Assessment: Do you want to hurt yourself or someone else? Patient reports no desire to harm self or others. Onset of symptoms was January 17, 2025. 12:46 Method Of Arrival: Ambulatory ld1 12:46 Acuity: AMILCAR 3 ld1 Triage Assessment: 12:48 General: Appears in no apparent distress. comfortable, Behavior is calm, cooperative, ld1 appropriate for age. Pain: Complains of pain in low back area Pain does not radiate. Pain currently is 8 out of 10 on a pain scale. Quality of pain is described as throbbing, Pain began suddenly, Is continuous. EENT: No signs and/or symptoms were reported regarding the EENT system. Neuro: Level of Consciousness is awake, alert, obeys commands, Oriented to person, place, time, situation. Cardiovascular: Capillary refill < 3 seconds Patient's skin is warm and dry. Respiratory: Airway is patent Respiratory effort is even, unlabored. GI: Abdomen is flat, non-distended. : Reports pain in bilateral flank(s). Derm: No signs and/or symptoms reported regarding the dermatologic system. Musculoskeletal: No signs and/or symptoms reported regarding the musculoskeletal system. Historical: - Allergies: 12:48 No Known Allergies; ld1 - PMHx: 12:48 chronic back pain; Hyperlipidemia; Hypertension; Renal CA; ld1 - PSHx: 12:48 1 kidney removed; prostate sx; ld1 - Immunization history:: Adult Immunizations up to date. - Infectious Disease History:: Denies. - Social history:: Smoking status: Patient denies any tobacco usage or history of. Screenin:33 [facility] ED Fall Risk Assessment (Adult) History of falling in the last 3 months, ld1 including since admission No falls in past 3 months (0 pts) Confusion or Disorientation No (0 pts) Intoxicated or Sedated No (0 pts) Impaired Gait No (0 pts) Mobility Assist Device Used No (0 pt) Altered Elimination No (0 pt) Score/Fall Risk Level 0 - 2 = Low Risk Oriented to surroundings, Hourly rounding (assess needs \T\ fall precautionary measures) done. Abuse screen: Denies threats or abuse. Denies injuries from another. Nutritional screening: No deficits noted. Tuberculosis screening: No symptoms or risk factors identified. Assessment: 14:33 Reassessment: Patient appears in no apparent distress at this time. No changes from ld1 previously documented assessment. Patient and/or family updated on plan of care and expected duration. Pain level reassessed. Vital Signs: 12:46 BP 163 / 101; Pulse 67; Resp 18; Temp 98.8(O); Pulse Ox 99% on R/A; Weight 104.33 kg; ld1 Height 6 ft. 5 in. ; Pain 0/10; 14:33 BP 149 / 96; Pulse 70; Resp 18; Pulse Ox 99% on R/A; ld1 12:46 Body Mass Index 27.27 (104.33 kg, 195.58 cm) ld1 12:46 Pain Scale: Adult ld1 ED Course: 12:35 Patient arrived in ED. im 12:47 Triage completed. ld1 12:48 Arm band placed on right wrist. ld1 12:58 Abilio Edwards FNP-C is PHCP. dr5 12:58 Chapito Rodriguez MD is Attending Physician. dr5 13:30 COVID-19 Ag + Flu A+B Ag Sent. bc6 13:30 COVID swab sent to lab. Flu and/or RSV swab sent to lab. bc6 13:32 patient denied blood work. bc6 13:50 Chest Pa And Lat (2 Views) XRAY In Process Unspecified. EDMS 14:34 Patient has correct armband on for positive identification. ld1 14:34 No provider procedures requiring assistance completed. Patient did not have IV access ld1 during this emergency room visit. Administered Medications: 14:33 Not Given (Patient Refused): [id number] mg PO once ld1 Medication: 14:34 VIS not applicable for this client. ld1 Outcome: 14:21 Discharge ordered by . dr5 14:34 Discharged to home ambulatory, ld1 14:34 Condition: stable 14:34 Discharge instructions given to patient, Instructed on discharge instructions, follow up and referral plans. medication usage, Demonstrated understanding of instructions, follow-up care, medications, Prescriptions given X 3, 14:34 Patient left the ED. ld1 Signatures: Dispatcher [employer] EDMS Ashley Doan RN RN ld1 Lucrecia Coyle bc6 Sharmila Ponce Dustin, TELEPHONE ASSEMBLER-C TELEPHONE ASSEMBLER-Cdr5 Corrections: (The following items were deleted from the chart) 12:48 12:46 Chief complaint: Patient states: Fever since this morning. Denies pain. Burning ld1 with urination. Flank pain ld1 13:33 13:30 patient refused blood work and urine sample. patient stated he was only here for bc6 sinus problem bc6
[2025-01-17 14:54] VITALS: TEMP 98.8; O2SAT 99
[2025-01-17 14:56] VITALS: BP 149/96
== END 2025-01-17 14:34 | disposition home or self-care (01) ==
LOC: ER 12:31
DX: J06.9 Acute upper respiratory infection, unspecified (principal); Z11.52 Encounter for screening for COVID-19
CPT/HCPCS: 36415; 71046; 87428; 99283